=== PATIENT | male | born 1925 | race Caucasian/White ===

== ENCOUNTER 2016-09-10 14:06 | Inpatient (IN) | payer OTHER ==
[~2016-09-10] VITALS: Ht 167.6 cm; Wt 64.4 kg
[~2016-09-10 14:06] MED LIST: AMIODARONE HCL200 M1 PO; AMIODARONE200 MG PO; COLACE100 MG PO; COLACE50 MG PO; CORDARONE 200M200 MG PO; COUMADIN 2 MG TA2 MG PO; COUMADIN 5 MG TA5 MG PO; COUMADIN2 M1 PO; FINASTERIDE5 M1 PO; FUROSEMIDE20 M1 PO; FUROSEMIDE20 MG PO; LEVOTHYROXINE25 MCG PO; LISINOPRIL5 MG PO; LOPRESSOR 25MG25 MG PO; LOPRESSOR50 MG PO; PRAVASTATIN SOD20 M2 PO; Prinivil PO; SIMVASTATIN40 MG PO; SOTALOL80 MG PO; SPIRONOLACTONE25 M1 PO; SPIRONOLACTONE25 MG PO; WARFARIN4 MG PO; ZANTAC 150MG150 MG PO; ZOCOR80 MG PO
--- NOTE | 2016-09-10 14:26 | NUR ---
PT TO ED C/O B/L LEG SWELLING X 1 WEEK. STATES LASIX DOSE WAS INCREASED BY DR HERRING BUT THE SWELLING IS WORSE. PT DENIES PAIN, NO COMPLAINTS. H/O CHF.
--- NOTE | 2016-09-10 15:01 | ED CARDIAC/CP/PALPITATIONS ---
See Addendum History of Present Illness General Chief Complaint: Lower Extremity Problems Stated Complaint: DEEP LEG SWELLING Source: patient, family, old records Exam Limitations: no limitations Vital Signs & Intake/Output Vital Signs & Intake/Output Vital Signs Date Time Temp Pulse Resp B/P Pulse O2 O2 Flow FiO2 Ox Delivery Rate 09/10 1743 69 18 107/64 97 09/10 1600 16 16 96/59 97 Room Air 09/10 1425 97.9 71 20 90/52 93 Room Air Allergies Coded Allergies: sulfamethoxazole (From Bactrim) (RASH 09/11/15) trimethoprim (From Bactrim) (RASH 09/11/15) Triage Note: PT TO ED C/O B/L LEG SWELLING X 1 WEEK. STATES LASIX DOSE WAS INCREASED BY DR HERRING BUT THE SWELLING IS WORSE. PT DENIES PAIN, NO COMPLAINTS. H/O CHF. Triage Nurses Notes Reviewed? 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 His states that the patient's dose of Lasix was increased to 40 mg in the morning, and 20 mg at night which she has been on since the symptoms began without improvement. He denies any associated chest pain, fever chills redness warmth or rashes to his skin. He denies decreased urine output. He was last admitted in June 2016 for a CHF exacerbation. No cough, hemoptysis (ONUR POLLARD) Reconcile Medications Albuterol Sulfate 0.63 MG/3 ML VIAL.NEB 1 Vial INH/BILLIE BID PARALYZED RIGHT LUNG (Reported) Amiodarone HCl 200 MG TABLET 100 MG PO Q48 HEART HEALTH (Reported) Amiodarone HCl 200 MG TABLET 1 TAB PO EOD HEART HEALTH (Reported) Finasteride 5 MG TABLET 1 TAB PO DAILY PROSTATE Furosemide (Lasix) 40 MG TABLET 40 MG PO DAILY chf please follow up with cover making machine operator within a week to reassess Levothyroxine Sodium 25 MCG TABLET 1 TAB PO DAILY AC THYROID (Reported) Metoprolol Tartrate 25 MG TABLET 0.5 TAB PO BID HEART/BP (Reported) Pravastatin Sodium 20 MG TABLET 1 TAB PO DAILY CHOLESTEROL (Reported) Spironolactone 25 MG TABLET 0.5 TAB PO DAILY DIURETIC (Reported) Warfarin Sodium (Coumadin) 2 MG TABLET 1 TAB PO EOD BLOOD THINNER (Reported) Warfarin Sodium (Coumadin) 1 MG TABLET 1 TAB PO EOD BLOOD THINNER (Reported) (THOMAS DE JESUS) Past History Travel History Traveled to [place] past 21 day No Medical History Any Pertinent Medical History? 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 fib History of MRSA: No History of VRE: No History of CDIFF: No Pneumonia Vaccine: 03/08/16 Influenza Vaccine: 03/08/16 Surgical History Surgical History: MITRAL VALVE, 3 STENTS, DEFIBRILLATOR IN PLACE, pilonidal cyst AICD placement Psychosocial History Who do you live with Spouse What is your primary language Latvian Tobacco Use: Never used ETOH Use: denies use Illicit Drug Use: denies illicit drug use Family History Family History, If Any: FATHER FH: stroke MOTHER FH: heart disease Hx Contributory? No (ONUR POLLARD) Review of Systems Review of Systems Constitutional: Reports: see HPI. All Other Systems: Reviewed and Negative Comments Review of systems: See HPI, All other systems negative. Constitutional, no chills no fever, malaise HEENT: No visual changes no sore throat no congestion Cardiovascular: No chest pain , no palpitation Skin, no jaundice no rashes, no change in skin Respiratory: dyspnea no cough no sputum GI: No nausea no vomiting, no diarrhea, : No dysuria No hematuria, no frequency, Muscle skeletal: No joint pain, no joint swelling, no back pain, no neck pain, Neurologic: No numbness no headache Psych: No stress Heme/endocrine: No bruising no bleeding Immunology: No lymphadenopathy, (ONUR POLLARD) Physical Exam Physical Exam General Appearance: well developed/nourished, alert, awake Cardiovascular: regular rate/rhythm, murmur Comments: Well-developed well-nourished person in no acute distress HEENT: Normal EENT exam; PERRL, EOMI, HEAD is atraumatic. moist mucous membranes. Neck: Supple, normal range of motion without pain or tenderness Back: Nontender, no CVA tenderness. Full range of motion Cardiovascular: Regular rate and rhythms no murmurs rubs or gallops Respiratory: Chest nontender.There were no bony deformities, no asymmetry. No respiratory distress. Patient speaking in full complete sentences. Breath sounds clear to auscultation bilaterally: NO W/R/R Abdomen: Soft, nontender nondistended, no appreciable organomegaly. Normal bowel sounds. No rebound/guarding, No ascites. Extremity: 2+ B/L LE edema, full range of motion of extremities, normal and equal pulses bilaterally, 5 out of 5 strength noted to bilateral upper and lower extremities Neuro: Alert oriented x3, motor sensory normal, There were no obvious focal neurologic abnormalities. Skin: No appreciable rash on exposed skin, skin is warm and dry. Psych: Mood and affect is normal, memory and judgment is normal. Core Measures ACS in differential dx? Yes Severe Sepsis Present: No Septic Shock Present: No (ONUR POLLARD) Progress Differential Diagnosis: AMI, aortic dissection, atrial fibrillation, CHF/pulm edema, costochondritis, hyperkalemia, musculoskeletal pain, myocarditis, pericarditis, pneumonia, pneumothorax, PSVT, pulmonary embolism, PUD/GERD, DVT Plan of Care: Orders Procedure Date/time Status [facility]ER[facility]OL [facility] 09/13 UNK Complete LABS ORDERED, OLD RECORDS REVIEWED, CASE D/W DR MANZANO CALL PLACED TO DR HERRING 09/10/2016 4:17:12 PM case discussed with Dr. Herring who agrees with need for admission advised to hold IV lasix dose,manuel, have nephrology consult. Discussed the patient and his family all his lab results and they agree with plan (ONUR POLLARD) I was not involved in this patient's care. Thomas Mohan PA-C (THOMAS DE JESUS) Diagnostic Imaging: Viewed by Me: Radiology Read. Discussed w/RAD: Radiology Read. Initial ED EKG: VPACED AT 70, NO ACUTE ST SEG CHANGES NORMAL AXIS Prior EKG: unchanged (06/2016) (ONUR POLLARD) Departure Departure Disposition: STILL A PATIENT Condition: Stable Clinical Impression Primary Impression: CHF exacerbation Secondary Impressions: Acute on chronic renal insufficiency, Leg edema Referrals: PHYLLIS BOSS MD (PCP/Family) Departure Forms: Customer Survey General Discharge Information Admission Note Spoke With: NU ALDRIDGE MD Documentation of Exam: Documentation of any treatments & extenuating circumstances including Concerns Regarding Discharge (functional status, medication knowledge or non-compliance, living conditions, etc.) that warrant an admission rather than observation: Nephrology consult IV diuresis trend labs premature discharge would BE medically harmful cardiology consult (ONUR POLLARD) PA/[employer] Co-Sign Statement Statement: ED Attending supervision documentation- [x] I saw and evaluated the patient. I have also reviewed all the pertinent lab results and diagnostic results. I agree with the findings and the plan of care as documented in the PA's/[employer]'s documentation. [] I have reviewed the ED Record and agree with the PA's/[employer]'s documentation. [] Additions or exceptions (if any) to the PAs/SALV[employer]'s note and plan are summarized below: [] (THOMAS DE JESUS) Departure Prescriptions: Current Visit Scripts Furosemide (Lasix) 40 MG PO DAILY #7 TAB please follow up with cover making machine operator within a week to reassess PA/[employer] Co-Sign Statement Statement: ED Attending supervision documentation- [x] I saw and evaluated the patient. I have also reviewed all the pertinent lab results and diagnostic results. I agree with the findings and the plan of care as documented in the PA's/[employer]'s documentation. [] I have reviewed the ED Record and agree with the PA's/[employer]'s documentation. [] Additions or exceptions (if any) to the PAs/[employer]'s note and plan are summarized below: [] (JOSE JUAN ROBLERO,ADAM Dumont) Critical Care Note Critical Care Note Critical Care Time: non-applicable (ONUR POLLARD) (Cordarone) Laboratory Tests 09/10/16 1600: PT 42.9 *H, INR 4.14 *H 09/10/16 1516: Anion Gap 10, Estimated GFR 21 L, BUN/Creatinine Ratio 25.2 H, Glucose 111 H, Calcium 9.2, Total Bilirubin 0.8, AST 43, ALT 39, Alkaline Phosphatase 80, Troponin I 0.04, Bjp-[id number]-Rynnubvhqdr Pept 9330 H, Total Protein 6.7, Albumin 3.7, Globulin 3.0, Albumin/Globulin Ratio 1.2, CBC w Diff NO MAN DIFF REQ, RBC 3.33 L, MCV 91.7, MCH 30.9, RDW 16.3 H, MPV 9.2, Gran % 78.0 H, Lymphocytes % 11.0 L, Monocytes % 9.6 H, Eosinophils % 1.2, Basophils % 0.2, Absolute Granulocytes 5.5, Absolute Lymphocytes 0.8 L, Absolute Monocytes 0.7 H, Absolute Eosinophils 0.1, Absolute Basophils 0, PUBS MCHC 33.7 Microbiology 09/10 1702 URINE ROUT: Urine Culture - RECD LABS ORDERED, OLD RECORDS REVIEWED, CASE D/W DR MANZANO CALL PLACED TO DR HERRING 09/10/2016 4:17:12 PM case discussed with Dr. Herring who agrees with need for admission advised to hold IV lasix dose,manuel, have nephrology consult. Discussed the patient and his family all his lab results and they agree with plan (ONUR POLLARD) I was not involved in this patient's care. Thomas Mohan PA-C (THOMAS DE JESUS) Diagnostic Imaging: Viewed by Me: Radiology Read. Discussed w/RAD: Radiology Read. Initial ED EKG: VPACED AT 70, NO ACUTE ST SEG CHANGES NORMAL AXIS Prior EKG: unchanged (06/2016) (ONUR POLLARD) Departure Departure Disposition: STILL A PATIENT Condition: Stable Clinical Impression Primary Impression: CHF exacerbation Secondary Impressions: Acute on chronic renal insufficiency, Leg edema Referrals: GERA ROBLERO,PHYLLIS (PCP/Family) Departure Forms: Customer Survey General Discharge Information Admission Note Spoke With: NU ALDRIDGE MD Documentation of Exam: Documentation of any treatments & extenuating circumstances including Concerns Regarding Discharge (functional status, medication knowledge or non-compliance, living conditions, etc.) that warrant an admission rather than observation: Nephrology consult IV diuresis trend labs premature discharge would BE medically harmful cardiology consult (ONUR POLLARD) PA/[employer] Co-Sign Statement Statement: ED Attending supervision documentation- [x] I saw and evaluated the patient. I have also reviewed all the pertinent lab results and diagnostic results. I agree with the findings and the plan of care as documented in the PA's/[employer]'s documentation. [] I have reviewed the ED Record and agree with the PA's/[employer]'s documentation. [] Additions or exceptions (if any) to the PAs/S[employer]'s note and plan are summarized below: [] (THOMAS DE JESUS) Critical Care Note Critical Care Note Critical Care Time: non-applicable (ONUR POLLARD)
[2016-09-10] MEDS ORDERED: LASIX40 M1 PO (15:23)
[2016-09-10] MEDS ORDERED: FUROSEMIDE20 M1 PO (15:23)
[2016-09-10] MEDS ORDERED: METOPROLOL TART25 M1 PO (15:25)
[2016-09-10] MEDS ORDERED: SPIRONOLACTONE25 M1 PO (15:26)
[2016-09-10] MEDS ORDERED: COUMADIN1 M1 PO (15:27)
[2016-09-10] MEDS ORDERED: COUMADIN2 M1 PO (15:27)
[2016-09-10] MEDS ORDERED: ALBUTEROL0.63 MG/1 INH/SOL (15:28)
[2016-09-10 15:29] LABS: ABSOLUTE BASOPHIL COUNT 0 /CUMM (0.0-0.2); ABSOLUTE EOSINOPHIL COUNT 0.1 /CUMM (0.0-0.7); ABSOLUTE GRANULOCYTE CT 5.5 /CUMM (1.4-6.5); ABSOLUTE LYMPH COUNT 0.8 /CUMM (1.2-3.4); ABSOLUTE MONOCYTE COUNT 0.7 /CUMM (0.10-0.60); BASOPHIL % 0.2 % (0.0-2.0); EOSINOPHIL % 1.2 % (0-5); HEMATOCRIT 30.5 % (42-52); MEAN CORPUSCULAR HGB 30.9 PG (27.0-31.0); MEAN CORPUSCULAR HGB CONC 33.7 G/DL (33.0-37.0); MEAN CORPUSCULAR VOLUME 91.7 FL (80.0-94.0); MEAN PLATELET VOLUME 9.2 FL (7.4-10.4); PLATELET COUNT 147 /CUMM (130-400); RBC DISTRIBUTION WIDTH 16.3 % (11.5-14.5); RED BLOOD CELL CT 3.33 /CUMM (4.70-6.10)
--- NOTE | 2016-09-10 15:56 | RADIOLOGY REPORT ---
EXAMINATION: XR PORTABLE CHEST CLINICAL INFORMATION: Dyspnea. Weakness. Lower extremity swelling. COMPARISON: Chest x-ray 06/18/2016. TECHNIQUE: Portable AP view of the chest was obtained. FINDINGS: Single AP view of the chest demonstrates blunting of the right costophrenic angle, corresponding to a small to moderate right-sided pleural effusion. Right basilar opacification is nonspecific and could reflect atelectasis although superimposed infection cannot be excluded in the appropriate clinical setting. No left-sided pleural fluid is identified. Cardiomediastinal contours are stable and there is stable prominence of the cardiac silhouette, without overt pulmonary edema. Redemonstrated is a left chest wall AICD. Median sternotomy wires are in place. No pneumothoraces are identified. IMPRESSION: Persistent small to moderate right-sided pleural effusion with associated right basilar opacification. This could reflect atelectasis although superimposed infection is not excluded in the appropriate clinical setting. Stable prominence of the cardiac silhouette, without overt pulmonary edema.
--- NOTE | 2016-09-10 16:01 | NUR ---
NOTED PACED RHYTHM ON MONITOR, CAPTURING
--- NOTE | 2016-09-10 17:05 | History & Physical ---
JORI AIKEN 09/10/16 4735: General Information and HPI MD Statement: I have seen and personally examined REAGAN GUTIERREZ and documented this H&P. 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 Daughter and was at bedside. Stated that since the past one week he has been experiencing progressively worsening bilateral lower extremity swelling. His roundhouse firer/fireman Dr. Golden had increased his dose of Lasix a couple of risk weeks ago. States that he's gained about 2-3 pounds over the course of the week. At baseline he is short of breath shortness of breath has not worsened recently. Continues to sleep on one pillow. He does continue to sprinkle salt on his diet. Reports compliance with medication. Denies chest pain, palpitations, fever, upper respiratory symptoms. Allergies/Medications Allergies: Coded Allergies: sulfamethoxazole (From Bactrim) (RASH 09/11/15) trimethoprim (From Bactrim) (RASH 09/11/15) Home Med list Albuterol Sulfate 0.63 MG/3 ML VIAL.NEB 1 Vial INH/BILLIE BID PARALYZED RIGHT LUNG (Reported) Amiodarone HCl 200 MG TABLET 100 MG PO Q48 HEART HEALTH (Reported) Amiodarone HCl 200 MG TABLET 1 TAB PO EOD HEART HEALTH (Reported) Finasteride 5 MG TABLET 1 TAB PO DAILY PROSTATE Furosemide (Lasix) 40 MG TABLET 1 TAB PO QAM DIURETIC (Reported) Furosemide 20 MG TABLET 1 TAB PO DAILY DIURETIC (Reported) Levothyroxine Sodium 25 MCG TABLET 1 TAB PO DAILY AC THYROID (Reported) Metoprolol Tartrate 25 MG TABLET 0.5 TAB PO BID HEART/BP (Reported) Pravastatin Sodium 20 MG TABLET 1 TAB PO DAILY CHOLESTEROL (Reported) Spironolactone 25 MG TABLET 0.5 TAB PO DAILY DIURETIC (Reported) Warfarin Sodium (Coumadin) 2 MG TABLET 1 TAB PO EOD BLOOD THINNER (Reported) Warfarin Sodium (Coumadin) 1 MG TABLET 1 TAB PO EOD BLOOD THINNER (Reported) Compliance With Home Meds: GOOD Past History Travel History Traveled to [place] past 21 day No Medical History Neurological: NONE EENT: hearing loss Cardiovascular: CAD, cardiomyopathy, hypertension, CHF, IRREG 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 ON LASIX Gastrointestinal: NONE Hepatic: NONE Renal: chronic azotemia for which she has never seen a dental assisting instructor over the years as well as episodes of acute kidney injury when he had hypotension. Musculoskeletal: NONE Psychiatric: NONE Endocrine: NONE Blood Disorders: NONE Cancer(s): NONE MERCURY CRACKING TESTER/Reproductive: NONE Other Medical Hx: Hypertension, high cholesterol, mitral valve replacement, CAD, A. fib History of MRSA: No History of VRE: No History of CDIFF: No Pneumonia Vaccine: 03/08/16 Influenza Vaccine: 03/08/16 Surgical History Surgical History: MITRAL VALVE, 3 STENTS, DEFIBRILLATOR IN PLACE, pilonidal cyst AICD placement Past Family/Social History Family History Relations & Conditions if any FATHER FH: stroke MOTHER FH: heart disease Psychosocial History Where do you live? Home Who Do You Live With? spouse Primary Language: Mongolian ETOH Use: denies use Illicit Drug Use: denies illicit drug use Functional Ability ADLs Independent: dressing, eating, toileting, bathing. Ambulation: walker Review of Systems Review of Systems Constitutional: Denies: chills, diaphoresis, fever, malaise, weakness, unexplained weight loss. Cardiovascular: Denies: chest pain, edema, orthopena, palpitations, peripheral edema, syncope. Respiratory: Reports: short of breath. Denies: cough, hemoptysis, orthopnea, sputum production, stridor, wheezing. GI: Denies: abdominal pain, bloating, constipation, diarrhea, distention, bowel incontinence, melena, nausea, bloody stool, changes in stool, vomiting, steatorrhea. Genitourinary: Denies: discharge, dysuria, frequency, hematuria, hesitation, nocturia, pain, urgency. Exam & Diagnostic Data Last 24 Hrs of Vital Signs/I&O Vital Signs Date Time Temp Pulse Resp B/P Pulse O2 O2 Flow FiO2 Ox Delivery Rate 09/10 1743 69 18 107/64 97 09/10 1600 16 16 96/59 97 Room Air 09/10 1425 97.9 71 20 90/52 93 Room Air Intake & Output 09/10 1600 09/10 0800 03/06 0000 Intake Total Output Total Balance Patient 145 lb Weight Physical Exam General Appearance Alert, Oriented X3, Cooperative, No Acute Distress HEENT Atraumatic, Mucous Membr. moist/pink Neck Supple, No JVD, +2 Carotid Pulse wo Bruit Lymphatic Cervical nl Cardiovascular Normal S1, Normal S2, click heard in mitral area Lungs Normal Air Movement, b/l coarse crackles Abdomen Soft, distended Extremities b/l pitting edema to below knees Last 24 Hrs of Labs/Jamar: Laboratory Tests 09/10/16 2130: Troponin I Pending 09/10/16 1600: PT 42.9 *H, INR 4.14 *H 09/10/16 1516: Anion Gap 10, Estimated GFR 21 L, BUN/Creatinine Ratio 25.2 H, Glucose 111 H, Calcium 9.2, Total Bilirubin 0.8, AST 43, ALT 39, Alkaline Phosphatase 80, Troponin I 0.04, [id number] Pept 9330 H, Total Protein 6.7, Albumin 3.7, Globulin 3.0, Albumin/Globulin Ratio 1.2, TSH Pending, Free T4 2.06 H, CBC w Diff NO MAN DIFF REQ, RBC 3.33 L, MCV 91.7, MCH 30.9, RDW 16.3 H, MPV 9.2, Gran % 78.0 H, Lymphocytes % 11.0 L, Monocytes % 9.6 H, Eosinophils % 1.2, Basophils % 0.2, Absolute Granulocytes 5.5, Absolute Lymphocytes 0.8 L, Absolute Monocytes 0.7 H, Absolute Eosinophils 0.1, Absolute Basophils 0, PUBS MCHC 33.7 Microbiology 09/10 1702 URINE ROUT: Urine Culture - RECD Diagnostic Data EKG Results Ventricular paced, heart rate 70 QTc 575 CXR Results FINDINGS: Single AP view of the chest demonstrates blunting of the right costophrenic angle, corresponding to a small to moderate right-sided pleural effusion. Right basilar opacification is nonspecific and could reflect atelectasis although superimposed infection cannot be excluded in the appropriate clinical setting. No left-sided pleural fluid is identified. Cardiomediastinal contours are stable and there is stable prominence of the cardiac silhouette, without overt pulmonary edema. Redemonstrated is a left chest wall AICD. Median sternotomy wires are in place. No pneumothoraces are identified. IMPRESSION: Persistent small to moderate right-sided pleural effusion with associated right basilar opacification. This could reflect atelectasis although superimposed infection is not excluded in the appropriate clinical setting. Stable prominence of the cardiac silhouette, without overt pulmonary edema. 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 Will admit to tele floor for continuous cardiac monitoring. Prob list: acute on Chronic HFrEF CAD [facility] mitral valve CKD BPH plan: Vitals per protocol, daily weights, strict I/Os f/up TSH/t4 Echo done in Jun 22 showed LVEF of 20-25% cardio consult in am hold coumadin secondary to supratherapeutic INR CKD thought to be secondary to hypertensive nephrosclerosis vs cardiorenal syndrome, will continue to monitor closely continue home medications amiodarone 100 mg and 200 mg on alternating days, metoprolol 25 mg PO BID, pravastatin 20 mg PO QD, spirinolactone 12.5 mg PO QD, synthroid 0.025mg and Finasteride 5 mg PO QD DVTppx: supratherapeutic INR heart healthy diet full code As Ranked By This Provider Problem List: 1. Supratherapeutic INR 2. Atrial fibrillation 3. CHF exacerbation 4. H/O mitral valve replacement with mechanical valve 5. S/P AICD Core Measures/Miscellaneous Acute Coronary Syndrome ACS Diagnosis: No Cerebrovascular Accident CVA/TIA Diagnosis: No Congestive Heart Failure CHF Diagnosis: Yes Date of most recent Echo: 06/08/16 Last Known EF %: 20 GRAHAM/ARB for EF <40%: No No GRAHAM/ARB d/t: Medical Contraindication Venous Thromboembolism VTE Risk Factors: Age > 40 [facility] d/t: No contraindications No VTE Pharm Prophylaxis d/t: Medical contraindication VTE Diagnosis: No VTE Type: NONE VTE Confirmed by (Test): NONE Severe Sepsis Severe Sepsis Present: No Septic Shock Septic Shock Present: No Miscellaneous Documentation Attending Case Discussed With: NU ALDRIDGE MD Primary Care Physician: GERA ROBLERO,[facility] Patient sees these Specialists Dr. 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 Recent increase in Lasix dose at home with no improvement. Patient hemodynamically stable, no JVD, no crackles, 3+ b/l LE edema. 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 His Lasix dose was increased recently(3 weeks ago) by his roundhouse firer/fireman, Dr. Golden. The patient reports gaining approx 3 pounds for the past few weeks. He brittni any Dizziness, lightheadedness, Orthopnea, CP, palpitation, or other complaints. He is compliant with Low Na diet, and his medications. VS: T: 97.9, ME 71, BP 90/52, RR 20, O2 sat 92% RA Ph/Ex: AAOx3, NAD, wearing hearing aid b/l , HEENT: Moist mm, head NCAT, PERRLA, EOMI Neck: Supple, no JVD, no carotid bruits, no LAD. CV: RRR, no murmur. Lungs: CTABL, Abdomen: NL BS, Sotf, NT, Distended. Ext: LE 3+ edema b/l. Neurology exam non-focal. Reflexes/pulse wnl and symm. Pertinent Lab data: Hb 10.3, Hct 30.5, BUN 73, Cr 2.9, GFR 21, G 111, ProBNP 9330( [id number] Jun 22). INR 4.14. EKG: ventricular paced, 70, QTC 575. CXR: Persistent right-sided pleural effusion with associated right basilar opacification.Stable prominence of the cardiac silhouette, without overt pulmonary edema. Problem list/Plan: #Worsening of LE edema and exertional dyspnea: Likely 2/2 acute on chronic HFrEF. * take off man * Echo done during last admission in Jun 2016 (ejection fraction 20%) : No need for a repeat echo at this point. * r/o ACS w/serial trop/ekg * Check TFT * Strict Is&Os w/daily Wt. * IV furosemid 40 mg x1 * monitor cr/electrolytes. * Cardiology consult w/Dr. Golden * c/w home meds including amiodarone 100 mg and 200 mg on alternating days, metoprolol 25 mg PO BID, pravastatin 20 mg PO QD and spirinolactone 12.5 mg PO QD; monitor BP and ME closely. #Supratherapeutic INR: * Patient is s/p metalloprosthetic mitral valve replacement and takes warfarin 2 mg PO QD and warfarin 1 mg PO QD on alternating days. * Admission INR 4.14. * No clinical sign of active bleeding * Will hold warfarin * Will check INR tomorrow; warfarin dose to be adjusted accordingly. #JESSE on CKD: * Cr 2.9 on admission; cardiorenal vs worsening of CKD * IV Furosemide 40 mg X1 * Check UA * Monitor Cr level closely * Consider Nephrology consult #BPH: * Chronic/stable * Renal US on last admission was unremarkable. * Chronic urinary symptoms including urinary retention * c/w Finasteride 5 mg PO QD #Right-sided pleural effusion: * Present since last admission in Jun 2016 along with lung collapse. * Patient was not a good candidate for bronchoscopy given his markedly abnormal stress test and multiple co-morbidities;also,Thoracentesis could not be performed as there was not enough fluid for thoracentesis on chest US. * Consider Pulm consult # DVT PPX: Pt on warfarin; now w/supratherapeutic INR # Full code
[2016-09-10 17:07] LABS: PT 42.9 SEC (9.4-12.5)
--- NOTE | 2016-09-10 17:09 | NUR ---
CRITICAL TEST RESULTS [id number] REAGAN GUTIERREZ 89 M TESTS AND RESULTS: PT 42.9 INR 4.14 Results received and read back by: KAVEH DYER Results received date and time: 09/10/16 1710 The following provider was notified of the results, and read the results back: RUTH MOHR Notified date and time: 09/10/16 at 1712
--- NOTE | 2016-09-10 18:47 | NUR ---
Emergency Dept UC Admit Note: To be admitted to [facility] by [facility] with CHF EXACERBATION as the diagnosis, to [id number] location. Nursing Display Mechanic and admitting notified 09/10/16 at 1809
--- NOTE | 2016-09-10 19:17 | Admission Certification ---
Admission Certification Certification Statement - As attending physician, I certify that at the time of - admission, based on clinical presentation, severity of - symptoms, need for further diagnostic testing and - therapeutic interventions, and risk of adverse outcomes - without in-hospital treatment, in my clinical assessment, - this patient requires an acute hospital stay for a minimum - of two nights or longer. I have also considered psychsocial - factors such as support system, advanced age, financial - issues, cognitive issues, and failed out-patient treatments, - past re-admission history, safety of patient, and lack of - compliance as applicable. Specific rationale supporting this admission is: Acute on chronic sytolic CHF failing outpatient therapy
--- NOTE | 2016-09-10 19:22 | NUR ---
REPORT CALLED TO [facility]
--- NOTE | 2016-09-10 19:35 | NUR ---
PACE RHYTHM, A&OX3, SKIN WARM AND DRY, RESPIRATIONS EVEN AND NON LABORED
--- NOTE | 2016-09-10 20:30 | NUR ---
REPORT RECIEVED FROM BLANCO RN, ED. PT ARRIVED TO FLOOR VIA DISTRIBUTION. DENIES ANY PAIN. AOX3. PACED ON MONITOR. NO S/S DISTRESS AT THIS TIME. ORIENTED TO ROOM AND CALL BUTTON. WILL CONTINUE TO MONITOR.
[2016-09-10 21:49] VITALS: BP 100/60; BP 138/78
[2016-09-11 01:11] VITALS: BP 110/60
[2016-09-11 03:56] LABS: ABSOLUTE BASOPHIL COUNT 0 /CUMM (0.0-0.2); ABSOLUTE EOSINOPHIL COUNT 0.1 /CUMM (0.0-0.7); ABSOLUTE GRANULOCYTE CT 5.3 /CUMM (1.4-6.5); ABSOLUTE LYMPH COUNT 0.8 /CUMM (1.2-3.4); ABSOLUTE MONOCYTE COUNT 0.7 /CUMM (0.10-0.60); BASOPHIL % 0.4 % (0.0-2.0); GRANULOCYTE % 76.1 % (42.2-75.2); HEMATOCRIT 30.3 % (42-52); MEAN CORPUSCULAR HGB 30.4 PG (27.0-31.0); MEAN CORPUSCULAR VOLUME 92.2 FL (80.0-94.0); MEAN PLATELET VOLUME 9.3 FL (7.4-10.4); PLATELET COUNT 127 /CUMM (130-400); RBC DISTRIBUTION WIDTH 15.9 % (11.5-14.5); RED BLOOD CELL CT 3.29 /CUMM (4.70-6.10)
[2016-09-11 03:58] LABS: PT 36.6 SEC (9.4-12.5)
[2016-09-11 07:48] VITALS: BP 100/62
--- NOTE | 2016-09-11 11:36 | PN- Att Addend ---
Attending Addendum Attending Brief Note Patient seen and examined. Discussed with Dr. Lobo and team. This is an 89-year-old male known to me from previous admissions with a history of chronic systolic heart failure with an EF of 25%, pacemaker/defibrillator, coronary artery disease and a metallic heart valve on Coumadin with CKD. He is here with a presumed acute on chronic systolic heart failure despite aggressive outpatient oral therapy. His says that Dr. Golden recently increased his dose of Lasix but despite that he is getting progressively more swollen and that's what made her bring him in. Right now we have him on Lasix 40 IV daily keeping a close watch on his CK D. His INR is 3.53 so he doesn't need any Coumadin today but we need to keep the INR on the high side given his metallic valve. Dr. Lobo will help us with dose of the diuretic and will continue the amiodarone and follow-up closely. His UA and urine culture are both positive. He is asymptomatic for this is likely asymptomatic bacteriuria but I am worried that now he has a Rawls catheter because of the IV diuretics so we'll curbside ID just to make sure that we don't need to treat this.
--- NOTE | 2016-09-11 12:59 | PN- Housestaff ---
Subjective Follow-up For: HFrEF [facility] valve CAD Subjective: Seen and examined patient, offers no complaints. States he had difficulty sleeping due to change in environment. Denies shortness of breath, chest pain. Review of Systems Constitutional: Denies: chills, diaphoresis, fever, malaise, weakness, unexplained weight loss. Cardiovascular: Denies: chest pain, edema, orthopena, palpitations, peripheral edema, syncope. Respiratory: Denies: cough, hemoptysis, orthopnea, short of breath, sputum production, stridor, wheezing. Objective Last 24 Hrs of Vital Signs/I&O Vital Signs Date Time Temp Pulse Resp B/P Pulse O2 O2 Flow FiO2 Ox Delivery Rate 09/11 1850 94 Room Air / 1613 97.8 68 20 94/50 95 Room Air / 1002 72 100/62 / 0902 97 Room Air Room Air / 0800 Room Air / 0748 97.9 72 20 100/62 94 Room Air / 0622 70 118/68 03/07 0111 97.6 70 20 110/60 98 Room Air 03/07 0000 96 /06 2200 70 106/58 03/06 2149 97.6 71 20 100/60 96 Room Air 03/06 2106 Room Air Intake & Output 09/11 1600 /07 0800 / 0000 Intake Total 914 240 240 Output Total 950 1200 400 Balance -36 -960 -160 Intake, IV 14 Intake, Oral 900 240 240 Number 1 Bowel Movements Output, Urine 950 1200 400 Patient 144 lb Weight Physical Exam General Appearance: Alert, Oriented X3, Cooperative, No Acute Distress Cardiovascular: Normal S1, Normal S2, added clicks heard Lungs: b/l basal crackles Abdomen: Normal Bowel Sounds, Soft Extremities: +2 pedal edema Current Medications: Current Medications Sig/Yordy Start time Last Medication Dose Route Stop Time Status Admin Acetaminophen 325 MG Q6 PRN 09/11 0130 AC PO Albuterol Sulfate 3 ML BID 09/10 2200 AC 09/11 INH 1850 Amiodarone HCl 100 MG Q48 /08 1000 DC PO Amiodarone HCl 100 MG Q48 /08 1000 AC PO Amiodarone HCl 200 MG Q48H 09/11 0600 AC 09/11 PO 0622 Finasteride 5 MG DAILY 09/11 1000 AC 09/11 PO 1002 Furosemide 40 MG 7:30 AM, & 4:30 PM 09/11 1915 AC IV Furosemide 40 MG .STK-MED ONE 09/11 1816 DC IV 09/11 1817 Furosemide 40 MG DAILY 09/11 1000 DC 09/11 IV 1002 Furosemide 20 MG ONCE ONE 09/10 2300 DC 09/11 IV 09/10 2301 0130 Levothyroxine Sodium 0.025 MG DAILY AC 09/11 0700 AC 09/11 PO 0621 Metoprolol Tartrate 12.5 MG BID 09/10 2200 AC 09/11 PO 1002 Patient Medication 1 ED .STK-MED ONE 09/11 1355 DC Teaching ED 09/11 1356 Pravastatin Sodium 20 MG 1700 09/11 1700 AC 09/11 PO 1802 Spironolactone 12.5 MG DAILY 09/11 1000 AC 09/11 PO 1002 Last 24 Hrs of Lab/Jamar Results Last 24 Hrs of Labs/Mics: Laboratory Tests 09/11/16 0630: Urine Color YEL, Urine Clarity HAZY H, Urine pH 6.0, Ur Specific [place] 1.010, Urine Protein TRACE H, Urine Ketones NEG, Urine Nitrite NEG, Urine Bilirubin NEG, Urine Urobilinogen 0.2, Ur Leukocyte Esterase LARGE H, Ur Microscopic SEDIMENT EXAMINED, Urine RBC 1-3, Urine WBC 15-25 H, Urine Bacteria MANY H, Urine Hemoglobin LARGE H, Urine Glucose NEG 09/11/16 0315: Troponin I 0.04 09/11/16 0315: Anion Gap 9, Estimated GFR 22 L, BUN/Creatinine Ratio 25.9 H, PT 36.6 H, INR 3.53 H, CBC w Diff NO MAN DIFF REQ, RBC 3.29 L, MCV 92.2, MCH 30.4, RDW 15.9 H, MPV 9.3, Gran % 76.1 H, Lymphocytes % 12.0 L, Monocytes % 10.5 H, Eosinophils % 1.0, Basophils % 0.4, Absolute Granulocytes 5.3, Absolute Lymphocytes 0.8 L, Absolute Monocytes 0.7 H, Absolute Eosinophils 0.1, Absolute Basophils 0, PUBS MCHC 33.0 09/10/16 2130: Troponin I 0.05 Assessment/Plan Assessment: 89-year-old gentleman of HFrEF s/p pacemaker defibrillator, CAD s/p CABG, 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 acute on Chronic HFrEF CAD [facility] mitral valve CKD BPH plan: daily weights, strict I/Os TSH/t4 WNL Echo done in Jun 22 showed LVEF of 20-25% cardio consulted apprecite recomendation hold coumadin today secondary to supratherapeutic INR creatinine improved to 2.7 today continue home medications amiodarone 100 mg and 200 mg on alternating days, metoprolol 25 mg PO BID, pravastatin 20 mg PO QD, spirinolactone 12.5 mg PO QD, synthroid 0.025mg and Finasteride 5 mg PO QD DVTppx: supratherapeutic INR heart healthy diet full code Problem List: 1. Supratherapeutic INR 2. HFrEF (heart failure with reduced ejection fraction) 3. BPH (benign prostatic hypertrophy) with urinary retention Pain Ratin Pain Location: na Pain Goal: Pain 4 or less Pain Plan: current regimen Tomorrow's Labs & Rationales: bep/mag/INr
--- NOTE | 2016-09-11 13:28 | Event Note ---
Event Note Event Note: UA was hazy in clarity with large leukocyte esterase, 15-25 WBC, and UC positive for gram negative rods. Patient seems to have asymptomatic bacteuria Although the patient has a Rawls catheter, patient does not need treatment at this moment. The literature only supports treatment of asymptomatic bacteuria when urinary tract manipulation is done such as during cystoscopy. ID is in agreement with the said plan.
--- NOTE | 2016-09-11 16:11 | Cons- Cardiology ---
General Information and HPI Consulting Request Date of Consult: 09/11/16 Requested By: HONG ROBLERO,DEMETRIUS Christina Reason for Consult: Heart failure History of Present Illness: The patient is an 89-year-old male with history of CAD, status post CABG, metallic mitral prosthetic valve, heart failure with reduced ejection fraction, implanted defibrillator who is followed in the office by Dr. Golden. He presents with complaint of progressive lower extremity edema which has been worsening over the past few weeks. His Lasix dose was recently increased to 40 milligrams every morning with 20 milligrams every afternoon, however he has continued to gain weight. he has had no chest pain. He has mild to moderate shortness of breath at baseline which has not increased recently. He does not have any complaint of orthopnea. He has been compliant with medications. No palpitations. No lightheadedness or dizziness. No nausea or vomiting. No diaphoresis. He is noted to have a positive urinalysis and urine culture, however he does not have as symptoms of urinary tract infection. Allergies/Medications Allergies: Coded Allergies: sulfamethoxazole (From Bactrim) (RASH 09/11/15) trimethoprim (From Bactrim) (RASH 09/11/15) Home Med List: Albuterol Sulfate 0.63 MG/3 ML VIAL.NEB 1 Vial INH/BILLIE BID PARALYZED RIGHT LUNG (Reported) Amiodarone HCl 200 MG TABLET 100 MG PO Q48 HEART HEALTH (Reported) Amiodarone HCl 200 MG TABLET 1 TAB PO EOD HEART HEALTH (Reported) Finasteride 5 MG TABLET 1 TAB PO DAILY PROSTATE Furosemide (Lasix) 40 MG TABLET 1 TAB PO QAM DIURETIC (Reported) Furosemide 20 MG TABLET 1 TAB PO DAILY DIURETIC (Reported) Levothyroxine Sodium 25 MCG TABLET 1 TAB PO DAILY AC THYROID (Reported) Metoprolol Tartrate 25 MG TABLET 0.5 TAB PO BID HEART/BP (Reported) Pravastatin Sodium 20 MG TABLET 1 TAB PO DAILY CHOLESTEROL (Reported) Spironolactone 25 MG TABLET 0.5 TAB PO DAILY DIURETIC (Reported) Warfarin Sodium (Coumadin) 2 MG TABLET 1 TAB PO EOD BLOOD THINNER (Reported) Warfarin Sodium (Coumadin) 1 MG TABLET 1 TAB PO EOD BLOOD THINNER (Reported) Current Medications: Current Medications Sig/Yordy Start time Last Medication Dose Route Stop Time Status Admin Acetaminophen 325 MG Q6 PRN 09/11 0130 AC PO Albuterol Sulfate 3 ML BID 09/10 2200 AC 09/11 INH 0900 Amiodarone HCl 100 MG Q48 09/12 1000 DC PO Amiodarone HCl 100 MG Q48 09/12 1000 AC PO Amiodarone HCl 200 MG Q48H 09/11 0600 AC 09/11 PO 0622 Finasteride 5 MG DAILY 09/11 1000 AC 09/11 PO 1002 Furosemide 40 MG DAILY 09/11 1000 AC 09/11 IV 1002 Furosemide 20 MG ONCE ONE 09/10 2300 DC 09/11 IV 09/10 2301 0130 Furosemide 0 .STK-MED ONE 09/10 1926 DC IV Furosemide 20 MG ONCE ONE 09/10 1915 DC 09/10 IV 09/10 1916 1930 Levothyroxine Sodium 0.025 MG DAILY AC 09/11 0700 AC 09/11 PO 0621 Metoprolol Tartrate 12.5 MG BID 09/10 2200 AC 09/11 PO 1002 Patient Medication 1 ED .STK-MED ONE 09/11 1355 DC Teaching ED 09/11 1356 Pravastatin Sodium 20 MG 1700 09/11 1700 AC PO Spironolactone 12.5 MG DAILY 09/11 1000 AC 09/11 PO 1002 Review of Systems Review of Systems: No rash. No tremor. No melena. No palpitations. All other systems are reviewed and are noted to be negative. Past History Travel History Traveled to [place] past 21 day No Medical History Blood Transfusion Hx: Yes Type of Reaction: Swelling Neurological: NONE EENT: hearing loss Cardiovascular: CAD, cardiomyopathy, hypertension, CHF, IRREG 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 ON LASIX Gastrointestinal: NONE Hepatic: NONE Renal: chronic azotemia for which she has never seen a funeral assistant over the years as well as episodes of acute kidney injury when he had hypotension. Musculoskeletal: NONE Psychiatric: NONE Endocrine: NONE Blood Disorders: NONE Cancer(s): NONE MANAGER PERFORMANCE/Reproductive: NONE Other Medical Hx: Hypertension, high cholesterol, mitral valve replacement, CAD, A. fib Surgical History Surgical History: MITRAL VALVE, 3 STENTS, DEFIBRILLATOR IN PLACE, pilonidal cyst AICD placement Family History Relations & Conditions If Any: FATHER FH: stroke MOTHER FH: heart disease Psychosocial History Where Do You Live? Home Who Do You Live With? spouse Primary Language: Wolof Smoking Status: Former Smoker ETOH Use: denies use Illicit Drug Use: denies illicit drug use Functional Ability ADLs Independent: dressing, eating, toileting, bathing. Ambulation: walker ECHO Results (as available) Report: CONCLUSIONS 1.this was a technically difficult study due to the patient's body habitus. 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 Mild valvular stenosis is present with a peak gradient of 20 mmHg, a mean gradient of 9 mmHg, and an estimated valve area of 1.8 cm . mild dilatation of the proximal ascending aorta is present 3. A metallic prosthetic mitral valve is present which appears to be functioning normally. Moderate to severe left atrial enlargement is present. 4. No significant pericardial fluid was detected on the study. 5. Left ventricular chamber is mildly enlarged. There is global hypokinesia present which is worse in the inferoposterior, inferolateral, and inferoapical segments. Ejection fraction is approximately 30%. 6. Mild enlargement of the right heart chambers is present. Moderate tricuspid insufficiency is present with mild pulmonic insufficiency and an estimated right ventricular systolic pressure of 50 mmHg. 7. Pacemaker wires are present in the right heart chambers. Exam & Diagnostic Data Vital Signs and I&O Vital Signs Date Time Temp Pulse Resp B/P Pulse O2 O2 Flow FiO2 Ox Delivery Rate 09/11 1613 97.8 68 20 94/50 95 Room Air / 1002 72 100/62 03/ 0902 97 Room Air Room Air / 0800 Room Air / 0748 97.9 72 20 100/62 94 Room Air 03/07 0622 70 118/68 03/07 0111 97.6 70 20 110/60 98 Room Air 03/07 0000 96 03/06 2200 70 106/58 03/06 2149 97.6 71 20 100/60 96 Room Air 03/06 2106 Room Air 03/ 1743 69 18 107/64 97 Intake & Output 09/11 1600 /07 0800 03/07 0000 /06 1600 / 0800 03/ 0000 Intake Total 914 240 240 360 Output Total 950 0159 428 1290 Balance -36 -960 -160 -990 Intake, IV 14 Intake, Oral 900 240 240 360 Number 1 Bowel Movements Output, Urine 950 5295 299 5570 Patient 144 lb 145 lb Weight Physical Exam: Gen: The patient is in no acute distress HEENT: Normal nose, ears, and oropharynx. Pupils equal bilaterally. Conjunctiva normal. Neck: Supple with no JVD, no masses, and no thyromegaly Lungs: Rales in the bases bilaterally with normal respiratory effort Heart: RRR, metallic mitral valve sounds, 1/6 systolic murmur. 2+peripheral edema, 1+ pulses in the lower extremities bilaterally Abdomen: Soft, nontender, no masses. No hepatomegaly. No splenomegaly Extremities: No clubbing or cyanosis. Normal muscle strength in the upper and lower extremities. Skin: Normal skin turgor with no skin ulcers or lesions noted. Neuro: Cranial nerves intact. Sensation intact Psych: Alert and oriented 3 with appropriate affect Labs/Jamar Results: Laboratory Tests 09/11 09/11 0630 0315 Chemistry Troponin I (<0.11 ng/ml) 0.04 Urines Urine Color (YEL,AMB,STR) YEL Urine Clarity (CLEAR) HAZY H Urine pH (5.0 - 8.0) 6.0 Ur Specific [place] (1.001 - 1.035) 1.010 Urine Protein (NEG,<30 MG/DL) TRACE H Urine Ketones (NEG) NEG Urine Nitrite (NEG) NEG Urine Bilirubin (NEG) NEG Urine Urobilinogen (0.1 - 1.0 EU/dl) 0.2 Ur Leukocyte Esterase (NEG) LARGE H Ur Microscopic SEDIMENT EXAMINED Urine RBC (0 - 5 /HPF) 1-3 Urine WBC (0 - 2 /HPF) 15-25 H Urine Bacteria (NEG/NONE) MANY H Urine Hemoglobin (NEG) LARGE H Urine Glucose (N MG/DL) NEG 09/11 09/10 09/10 0315 2130 1600 Chemistry Sodium (137 - 145 mmol/L) 138 Potassium (3.5 - 5.1 mmol/L) 3.8 Chloride (98 - 107 mmol/L) 96 L Carbon Dioxide (22 - 30 mmol/L) 33 H Anion Gap (5 - 16) 9 BUN (9 - 20 mg/dL) 70 H Creatinine (0.7 - 1.2 mg/dL) 2.7 H Estimated GFR (>60 ml/min) 22 L BUN/Creatinine Ratio (7 - 25 %) 25.9 H Troponin I (<0.11 ng/ml) 0.05 Coagulation PT (9.4 - 12.5 SEC) 36.6 H 42.9 *H INR (0.90 - 1.17) 3.53 H 4.14 *H Hematology CBC w Diff NO MAN DIFF REQ WBC (4.8 - 10.8 /CUMM) 7.0 RBC (4.70 - 6.10 /CUMM) 3.29 L Hgb (14.0 - 18.0 G/DL) 10.0 L Hct (42 - 52 %) 30.3 L MCV (80.0 - 94.0 FL) 92.2 MCH (27.0 - 31.0 PG) 30.4 RDW (11.5 - 14.5 %) 15.9 H Plt Count (130 - 400 /CUMM) 127 L MPV (7.4 - 10.4 FL) 9.3 Gran % (42.2 - 75.2 %) 76.1 H Lymphocytes % (20.5 - 51.1 %) 12.0 L Monocytes % (1.7 - 9.3 %) 10.5 H Eosinophils % (0 - 5 %) 1.0 Basophils % (0.0 - 2.0 %) 0.4 Absolute Granulocytes (1.4 - 6.5 /CUMM) 5.3 Absolute Lymphocytes (1.2 - 3.4 /CUMM) 0.8 L Absolute Monocytes (0.10 - 0.60 /CUMM) 0.7 H Absolute Eosinophils (0.0 - 0.7 /CUMM) 0.1 Absolute Basophils (0.0 - 0.2 /CUMM) 0 PUBS MCHC (33.0 - 37.0 G/DL) 33.0 03/06 1516 Chemistry Sodium (137 - 145 mmol/L) 138 Potassium (3.5 - 5.1 mmol/L) 3.9 Chloride (98 - 107 mmol/L) 96 L Carbon Dioxide (22 - 30 mmol/L) 32 H Anion Gap (5 - 16) 10 BUN (9 - 20 mg/dL) 73 H Creatinine (0.7 - 1.2 mg/dL) 2.9 H Estimated GFR (>60 ml/min) 21 L BUN/Creatinine Ratio (7 - 25 %) 25.2 H Glucose (65 - 99 mg/dL) 111 H Calcium (8.4 - 10.2 mg/dL) 9.2 Total Bilirubin (0.2 - 1.3 mg/dL) 0.8 AST (17 - 59 U/L) 43 ALT (21 - 72 U/L) 39 Alkaline Phosphatase (< 127 U/L) 80 Troponin I (<0.11 ng/ml) 0.04 [id number] Pept (<125 pg/mL) 9330 H Total Protein (6.3 - 8.2 g/dL) 6.7 Albumin (3.5 - 5.0 g/dL) 3.7 Globulin (1.9 - 4.2 gm/dL) 3.0 Albumin/Globulin Ratio (1.1 - 2.2 %) 1.2 TSH (0.270 - 4.200 uIU/mL) 3.420 Free T4 (0.85 - 1.93 ng/dL) 2.06 H Hematology CBC w Diff NO MAN DIFF REQ WBC (4.8 - 10.8 /CUMM) 7.0 RBC (4.70 - 6.10 /CUMM) 3.33 L Hgb (14.0 - 18.0 G/DL) 10.3 L Hct (42 - 52 %) 30.5 L MCV (80.0 - 94.0 FL) 91.7 MCH (27.0 - 31.0 PG) 30.9 RDW (11.5 - 14.5 %) 16.3 H Plt Count (130 - 400 /CUMM) 147 MPV (7.4 - 10.4 FL) 9.2 Gran % (42.2 - 75.2 %) 78.0 H Lymphocytes % (20.5 - 51.1 %) 11.0 L Monocytes % (1.7 - 9.3 %) 9.6 H Eosinophils % (0 - 5 %) 1.2 Basophils % (0.0 - 2.0 %) 0.2 Absolute Granulocytes (1.4 - 6.5 /CUMM) 5.5 Absolute Lymphocytes (1.2 - 3.4 /CUMM) 0.8 L Absolute Monocytes (0.10 - 0.60 /CUMM) 0.7 H Absolute Eosinophils (0.0 - 0.7 /CUMM) 0.1 Absolute Basophils (0.0 - 0.2 /CUMM) 0 PUBS MCHC (33.0 - 37.0 G/DL) 33.7 Diagnostic Data EKG Results EKG tracing is independently reviewed, and reveals ventricular paced rhythm at a rate of 70 CXR Results Persistent small to moderate right-sided pleural effusion with associated right basilar opacification. This could reflect atelectasis although superimposed infection is not excluded in the appropriate clinical setting. Stable prominence of the cardiac silhouette, without overt pulmonary edema. Other Results echocardiogram June 09, 2016: 1. Fibrocalcific degeneration is present in the aortic valve with moderate to severe valvular stenosis (PG 20 mmHg; MG 8 mmHg; DAMION 1.0 cm2). 2. A normally functioning metallo prosthetic mitral valve is present (size and type unknown) with severe left atrial enlargement. 3. THere is no significant pericardial fluid present. 4. The left ventricular chamber is mildly to moderately dilated with eccentric hypertrophy and an ejection fraction of approximately 20%. There is global hypokinesia present which is much worse in the inferoposterior; inferolateral and inferoapical segments. The inferior segments are essentially akinetic. 5. Enlargement of the right heart chambers is present with moderate tricuspid insufficiency, mild to moderate pulmonic insufficiency and an estimated RV systolic pressure of 42 mmHg. 6. Pacemaker wires are present in the right heart chambers. 7. Since the prior study, the LV systolic function has deteriorated further. Assessment/Plan Assessment/Plan The patient is an 89-year-old male with history of CAD, status post CABG, ICD, mechanical mitral for valve replacement who was admitted with acute on chronic heart failure with reduced ejection fraction. BUN creatinine are noted to be slightly above baseline, but have improved since presentation. Recommendations * Increase Lasix to 40 milligrams IV q 12 hours. * Follow input and output with daily weights. * Check basic metabolic profile daily. * Continue other cardiac medications. * Dose warfarin for INR 2.5 to 3.5. Consult Acknowledgment - Thank you for your consult request.
[2016-09-11 16:13] VITALS: BP 94/50
[2016-09-12 00:43] VITALS: BP 108/60
[2016-09-12 08:00] VITALS: BP 100/64
[2016-09-12 08:05] LABS: ABSOLUTE BASOPHIL COUNT 0 /CUMM (0.0-0.2); ABSOLUTE EOSINOPHIL COUNT 0.1 /CUMM (0.0-0.7); ABSOLUTE GRANULOCYTE CT 5.7 /CUMM (1.4-6.5); ABSOLUTE LYMPH COUNT 0.6 /CUMM (1.2-3.4); ABSOLUTE MONOCYTE COUNT 0.7 /CUMM (0.10-0.60); BASOPHIL % 0.4 % (0.0-2.0); EOSINOPHIL % 1.1 % (0-5); GRANULOCYTE % 80.5 % (42.2-75.2); HEMATOCRIT 29.8 % (42-52); MEAN CORPUSCULAR HGB 31.2 PG (27.0-31.0); MEAN CORPUSCULAR HGB CONC 34.2 G/DL (33.0-37.0); MEAN CORPUSCULAR VOLUME 91.2 FL (80.0-94.0); MEAN PLATELET VOLUME 9.4 FL (7.4-10.4); PLATELET COUNT 114 /CUMM (130-400); RBC DISTRIBUTION WIDTH 16.2 % (11.5-14.5); RED BLOOD CELL CT 3.26 /CUMM (4.70-6.10)
[2016-09-12 08:51] LABS: PT 27.6 SEC (9.4-12.5)
--- NOTE | 2016-09-12 09:19 | PN- Student ---
Subjective Subjective: 89 y.o. male seen and examined at bedside. Pt says he is feeling better, but is still feeling weak. Denies any new or different chest pain or SOB. Swelling in his legs has continued to decrease. He has been OOB to the bathroom without issues. Complains of pain in his right side that began early this morning around 400 when he got up with nursing to be weighed. The pain is localized, does not radiate, and he has never had it before. It is reproducible with palpation and is not aggrevated by movement or taking a deep breath. Denies trauma or inducing event. Has not noticed an overlying rash, says it is not puritic but he has scratched it. No other aggrevating or alleviating factors. Deneis history of herpes zoster. Objective Objective: Tele events: single paced, rate in 70's, QRS 0.04, inverted T waves in lead III at 000 General: awake and alert resting in bed in no acute distress Cardiac: S1 and S2 heard, RRR, metallic clicks heard Lungs: bilateral crackles in lower lung barboza Chest: severe tenderness to palpation right midaxillary line overlying the rib, overlying petchial rash with erythema extending anteriorly and posteriorly MSK: 1+ pitting edema of bilateral LE, calves soft nontender Psych: appropriate and cooperative with exam Results Results: Laboratory Tests 09/12/16 0650: Anion Gap 8, Estimated GFR 22 L, BUN/Creatinine Ratio 24.8, Magnesium 2.2, PT 27.6 H, INR 2.65 H, CBC w Diff NO MAN DIFF REQ, RBC 3.26 L, MCV 91.2, MCH 31.2 H, RDW 16.2 H, MPV 9.4, Gran % 80.5 H, Lymphocytes % 8.6 L, Monocytes % 9.4 H, Eosinophils % 1.1, Basophils % 0.4, Absolute Granulocytes 5.7, Absolute Lymphocytes 0.6 L, Absolute Monocytes 0.7 H, Absolute Eosinophils 0.1, Absolute Basophils 0, PUBS MCHC 34.2 09/11/16 0630: Urine Color YEL, Urine Clarity HAZY H, Urine pH 6.0, Ur Specific Fore[place] 1.010, Urine Protein TRACE H, Urine Ketones NEG, Urine Nitrite NEG, Urine Bilirubin NEG, Urine Urobilinogen 0.2, Ur Leukocyte Esterase LARGE H, Ur Microscopic SEDIMENT EXAMINED, Urine RBC 1-3, Urine WBC 15-25 H, Urine Bacteria MANY H, Urine Hemoglobin LARGE H, Urine Glucose NEG 09/11/16 0315: Troponin I 0.04 09/11/16 0315: Anion Gap 9, Estimated GFR 22 L, BUN/Creatinine Ratio 25.9 H, PT 36.6 H, INR 3.53 H, CBC w Diff NO MAN DIFF REQ, RBC 3.29 L, MCV 92.2, MCH 30.4, RDW 15.9 H, MPV 9.3, Gran % 76.1 H, Lymphocytes % 12.0 L, Monocytes % 10.5 H, Eosinophils % 1.0, Basophils % 0.4, Absolute Granulocytes 5.3, Absolute Lymphocytes 0.8 L, Absolute Monocytes 0.7 H, Absolute Eosinophils 0.1, Absolute Basophils 0, PUBS MCHC 33.0 09/10/16 2130: Troponin I 0.05 09/10/16 1600: PT 42.9 *H, INR 4.14 *H 09/10/16 1516: Anion Gap 10, Estimated GFR 21 L, BUN/Creatinine Ratio 25.2 H, Glucose 111 H, Calcium 9.2, Total Bilirubin 0.8, AST 43, ALT 39, Alkaline Phosphatase 80, Troponin I 0.04, Zsi-D-Zuccujqdupc Pept 9330 H, Total Protein 6.7, Albumin 3.7, Globulin 3.0, Albumin/Globulin Ratio 1.2, TSH 3.420, Free T4 2.06 H, CBC w Diff NO MAN DIFF REQ, RBC 3.33 L, MCV 91.7, MCH 30.9, RDW 16.3 H, MPV 9.2, Gran % 78.0 H, Lymphocytes % 11.0 L, Monocytes % 9.6 H, Eosinophils % 1.2, Basophils % 0.2, Absolute Granulocytes 5.5, Absolute Lymphocytes 0.8 L, Absolute Monocytes 0.7 H, Absolute Eosinophils 0.1, Absolute Basophils 0, PUBS MCHC 33.7 Microbiology 09/10 170 URINE ROUT: Urine Culture - COMP KLEBSIELLA OXYTOCA Assessment/Plan Assessment: 89 y.o. male h/o of CHF, CAD s/p CABG, metallic mitral valve replacement, pacemaker/defibrillator, CKD currently admitted for CHF exacerbation. This morning developed new onset pain and rash on right side. Differential for this includes musculoskeletal pain, pleuritis, costrochondritis, dermatitis, herpes zoster. Low suspicion for PE due to lack of additional respiratory symptoms. Plan: - daily weights with stict I/O's - daily BEP - IV Lasix 40 mg BID - coumadin dosed, INR today 2.65 - continue to follow pain and rash
--- NOTE | 2016-09-12 09:46 | PN- Housestaff ---
THIERRYEMILIJORI CABRAL 09/12/16 0946: Subjective Follow-up For: HFrEF [facility] valve CAD Tele-Events Since Last Visit: Single paced heart rate 69 Subjective: Seen and examined patient, offers no complaints. Denies shortness of breath, chest pain. Review of Systems Constitutional: Denies: chills, diaphoresis, fever, malaise, weakness, unexplained weight loss. Cardiovascular: Denies: chest pain, edema, orthopena, palpitations, peripheral edema, syncope. Respiratory: Denies: cough, hemoptysis, orthopnea, short of breath, sputum production, stridor, wheezing. Objective Last 24 Hrs of Vital Signs/I&O Vital Signs Date Time Temp Pulse Resp B/P Pulse O2 O2 Flow FiO2 Ox Delivery Rate 09/12 1110 97 Room Air 09/12 0814 69 108/60 09/12 0814 69 108/60 / 0800 97.6 69 20 100/64 96 /08 0043 98.0 69 20 108/60 95 03/08 0000 Room Air 09/11 2158 70 104/62 / 1850 94 Room Air / 1613 97.8 68 20 94/50 95 Room Air Intake & Output 09/12 1600 /08 0800 /08 0000 Intake Total 600 250 640 Output Total 700 900 700 Balance -100 -650 -60 Intake, IV 0 Intake, Oral 600 250 640 Number 2 0 Bowel Movements Output, Urine 700 900 700 Patient 140 lb Weight Physical Exam General Appearance: Alert, Oriented X3, Cooperative, No Acute Distress Cardiovascular: Regular Rate, Normal S1, Normal S2 Lungs: left basilar crackles Current Medications: Current Medications Sig/Yordy Start time Last Medication Dose Route Stop Time Status Admin Acetaminophen 325 MG Q6 PRN 09/11 0130 AC PO Albuterol Sulfate 3 ML BID 09/10 2200 AC 09/12 INH 1107 Amiodarone HCl 100 MG Q48 09/12 1000 DC PO Amiodarone HCl 100 MG Q48 09/12 1000 AC 09/12 PO 0814 Amiodarone HCl 200 MG Q48H 09/11 0600 AC 09/11 PO 0622 Finasteride 5 MG DAILY 09/11 1000 AC 09/12 PO 0814 Furosemide 40 MG 7:30 AM, & 4:30 PM 09/11 1915 AC 09/12 IV 0814 Furosemide 40 MG .STK-MED ONE 09/11 1816 DC IV 09/11 1817 Furosemide 40 MG DAILY 09/11 1000 DC 09/11 IV 1002 Levothyroxine Sodium 0.025 MG DAILY AC 09/11 0700 AC 09/12 PO 0633 Metoprolol Tartrate 12.5 MG BID 09/10 2200 AC 09/12 PO 0814 Pravastatin Sodium 20 MG 1700 09/11 1700 AC 09/11 PO 1802 Ramelteon 8 MG ONCE ONE 09/11 2115 DC / PO 09/11 2116 2158 Spironolactone 12.5 MG DAILY 09/11 1000 AC 09/12 PO 0814 Warfarin Sodium 2 MG COUMADIN 1700 ONE 09/12 1700 AC PO 09/12 1701 Last 24 Hrs of Lab/Jamar Results Last 24 Hrs of Labs/Mics: Laboratory Tests 09/12/16 0650: Anion Gap 8, Estimated GFR 22 L, BUN/Creatinine Ratio 24.8, Magnesium 2.2, PT 27.6 H, INR 2.65 H, CBC w Diff NO MAN DIFF REQ, RBC 3.26 L, MCV 91.2, MCH 31.2 H, RDW 16.2 H, MPV 9.4, Gran % 80.5 H, Lymphocytes % 8.6 L, Monocytes % 9.4 H, Eosinophils % 1.1, Basophils % 0.4, Absolute Granulocytes 5.7, Absolute Lymphocytes 0.6 L, Absolute Monocytes 0.7 H, Absolute Eosinophils 0.1, Absolute Basophils 0, PUBS MCHC 34.2 Assessment/Plan Assessment: 89-year-old gentleman of HFrEF s/p pacemaker defibrillator, CAD s/p CABG, 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 Problem list acute on Chronic HFrEF CAD [facility] mitral valve CKD BPH plan: -1800 fluid balance, daily weights, strict I/Os, on IV 40 mg lasix BID TSH/t4 WNL Echo done in Jun 22 showed LVEF of 20-25% cardio consulted appreciate recomendations INR 2.65 today, 2 mg of Coumadin was dosed creatinine stable at 2.7 today continue home medications amiodarone 100 mg and 200 mg on alternating days, metoprolol 25 mg PO BID, pravastatin 20 mg PO QD, spirinolactone 12.5 mg PO QD, synthroid 0.025mg and Finasteride 5 mg PO QD DVTppx: Coumadin heart healthy diet full code Problem List: 1. H/O mitral valve replacement with mechanical valve 2. Benign prostatic hyperplasia 3. Collapse of right lung 4. Acute on chronic renal insufficiency 5. HFrEF (heart failure with reduced ejection fraction) Pain Ratin Pain Location: Not applicable Pain Goal: Pain 4 or less Pain Plan: Current regimen Tomorrow's Labs & Rationales: Magnesium/INR/BP HONG ROBLERO,DEMETRIUS 09/12/16 1534: Attending MD Review Statement Attending Statement Attending MD Statement: examined this patient, discuss w/resident/PA/METAL OFF BEARER, agreed w/resident/PA/METAL OFF BEARER, discussed with family, reviewed EMR data (avail), discussed with nursing, discussed with case mgmt, reviewed images Attending Assessment/Plan: Patient's breathing looks better today. His O2 requirement also appears to be little less in his legs appear less swollen. Son Lasix 40 IV twice a day. We are keeping a close watch on his BUN and creatinine and dosing his Coumadin for his INR closer to 3. Dr. Golden saw him today and agreed with the plan. We have taken out the Rawls and PT is working with him.
--- NOTE | 2016-09-12 14:50 | NUR ---
WOUND CARE: LEFT BUTTOCKS STAGE 2 PRESSURE INJURY POA - 0.8 X 0.7 CM CLEAN DRY DERMAL BASE - PRESENT STATED PT HAS HAD WOUNDS FOR MONTHS WITH USE OF DESITIN OINTMENT RECOMNMEDNATION: DC DESITIN AND APPLY DUODERM Q 3 DAYS AND PRN - [place]ELYING POSITION - F/U AT [facility] AFTER DC IF FAILURE TO HEAL
[2016-09-12 16:46] VITALS: BP 106/73
--- NOTE | 2016-09-12 19:09 | PN- Cardiology ---
Subjective Subjective: DOing OK today with no specific complaints. LE edema improving. Respiratory status stable Objective Vital Signs and I&Os Vital Signs Date Time Temp Pulse Resp B/P Pulse O2 O2 Flow FiO2 Ox Delivery Rate 09/12 1846 98 Room Air Room Air 09/12 1646 97.0 73 20 106/73 96 Room Air 09/12 1600 Room Air 09/12 1110 97 Room Air 09/12 0814 69 108/60 09/12 0814 69 108/60 / 0800 97.6 69 20 100/64 96 /08 0043 98.0 69 20 108/60 95 03/08 0000 Room Air 09/11 2158 70 104/62 Intake & Output 09/12 1600 09/12 0800 09/12 0000 09/11 1600 09/11 0800 09/11 0000 Intake Total 600 250 640 914 240 240 Output Total 700 900 764 143 1922 400 Balance -100 -650 -60 -36 -960 -160 Intake, IV 0 14 Intake, Oral 600 250 640 900 240 240 Number 2 0 1 Bowel Movements Output, Urine 700 900 798 622 3575 400 Patient 140 lb 144 lb Weight Current Medications: Current Medications Sig/Yordy Start time Last Medication Dose Route Stop Time Status Admin Acetaminophen 325 MG Q6 PRN 09/11 0130 AC PO Albuterol Sulfate 3 ML BID 09/10 2200 AC 09/12 INH 1846 Amiodarone HCl 100 MG Q48 09/12 1000 DC PO Amiodarone HCl 100 MG Q48 09/12 1000 AC 09/12 PO 0814 Amiodarone HCl 200 MG Q48H 09/11 0600 AC 09/11 PO 0622 Finasteride 5 MG DAILY 09/11 1000 AC 09/12 PO 0814 Furosemide 40 MG 7:30 AM, & 4:30 PM 09/11 1915 AC 09/12 IV 1617 Levothyroxine Sodium 0.025 MG DAILY AC 09/11 0700 AC 09/12 PO 0633 Metoprolol Tartrate 12.5 MG BID 09/10 2200 AC 09/12 PO 0814 Pravastatin Sodium 20 MG 1700 09/11 1700 AC 09/12 PO 1617 Ramelteon 8 MG ONCE ONE 09/115 DC 09/11 PO 09/11 2116 2158 Spironolactone 12.5 MG DAILY 09/11 1000 AC 09/12 PO 0814 Warfarin Sodium 2 MG COUMADIN 1700 ONE 09/12 1700 DC 09/12 PO 09/12 1701 1618 Results Last 48 Hrs of Labs/Mics: Laboratory Tests 09/12/16 0650: Anion Gap 8, Estimated GFR 22 L, BUN/Creatinine Ratio 24.8, Magnesium 2.2, PT 27.6 H, INR 2.65 H, CBC w Diff NO MAN DIFF REQ, RBC 3.26 L, MCV 91.2, MCH 31.2 H, RDW 16.2 H, MPV 9.4, Gran % 80.5 H, Lymphocytes % 8.6 L, Monocytes % 9.4 H, Eosinophils % 1.1, Basophils % 0.4, Absolute Granulocytes 5.7, Absolute Lymphocytes 0.6 L, Absolute Monocytes 0.7 H, Absolute Eosinophils 0.1, Absolute Basophils 0, PUBS MCHC 34.2 09/11/16 0630: Urine Color YEL, Urine Clarity HAZY H, Urine pH 6.0, Ur Specific [place] 1.010, Urine Protein TRACE H, Urine Ketones NEG, Urine Nitrite NEG, Urine Bilirubin NEG, Urine Urobilinogen 0.2, Ur Leukocyte Esterase LARGE H, Ur Microscopic SEDIMENT EXAMINED, Urine RBC 1-3, Urine WBC 15-25 H, Urine Bacteria MANY H, Urine Hemoglobin LARGE H, Urine Glucose NEG 09/11/16 0315: Troponin I 0.04 09/11/16 0315: Anion Gap 9, Estimated GFR 22 L, BUN/Creatinine Ratio 25.9 H, PT 36.6 H, INR 3.53 H, CBC w Diff NO MAN DIFF REQ, RBC 3.29 L, MCV 92.2, MCH 30.4, RDW 15.9 H, MPV 9.3, Gran % 76.1 H, Lymphocytes % 12.0 L, Monocytes % 10.5 H, Eosinophils % 1.0, Basophils % 0.4, Absolute Granulocytes 5.3, Absolute Lymphocytes 0.8 L, Absolute Monocytes 0.7 H, Absolute Eosinophils 0.1, Absolute Basophils 0, PUBS MCHC 33.0 09/10/16 2130: Troponin I 0.05 Assessment/Plan Assessment/Plan Assessment: 1. Acute on chronic HFrEF 2. CAD s/p CABG 3. LE edema 4. Chronic renal insufficiency 5. Chronic anemia Recommendations: - Echo pending - COntinue diuresis with close monitoring of I/Os and daily labs. - Reassess in 24 hours and consider transition to po meds at that time. - PT evaluation Continue telemetry? Yes
[2016-09-12 21:11] VITALS: BP 94/60
[2016-09-13 00:45] VITALS: BP 80/40
[2016-09-13 08:30] VITALS: BP 114/60
--- NOTE | 2016-09-13 08:31 | PN- Student ---
Subjective Subjective: 89 y.o. male seen and examined at bedside. Pt says he is feeling a little bit better today. Denies any new or different chest pain or SOB. LE edema has continued to slowly decrease. Walked with PT yesterday, he says he was able to make it down the tunrer using a walker, which he uses at home. Continues to have SOB with walking short distances but breaths comfortably at rest. Pain on his right side chest wall has not changed. ROS: General: neg fever, chills Neuro: neg headache, weakness Cardiac: neg chest pain, palpitations Lungs: pos SOB with exertion GI: neg nausea/vomiting, diarrhea/constipation, abdominal pain : neg dysuria Objective Objective: Tele events: single-paced, rate 57-70 bpm, QRS 0.12-0.14, PVCs and BBB noted General: sitting up in the chair, awake and alert, in no acute distress Cardiac: S1 and S2 heard, RRR, metallic clicks heard Lungs: no signs of respiratory distress, breaths sounds decreased bilaterally with crackles Chest: pain in right side chest wall midaxillary line reproducible to deep palpation MSK: 1+ pitting edema in bilateral LEs, calves soft and nontender Psych: appropriate and cooperative with exam Results Results: Laboratory Tests 09/13/16 0635: Sodium Pending, Potassium Pending, Chloride Pending, Carbon Dioxide Pending, Anion Gap Pending, BUN Pending, Creatinine Pending, BUN/Creatinine Ratio Pending , Magnesium Pending, PT Pending, INR Pending 09/12/16 0650: Anion Gap 8, Estimated GFR 22 L, BUN/Creatinine Ratio 24.8, Magnesium 2.2, PT 27.6 H, INR 2.65 H, CBC w Diff NO MAN DIFF REQ, RBC 3.26 L, MCV 91.2, MCH 31.2 H, RDW 16.2 H, MPV 9.4, Gran % 80.5 H, Lymphocytes % 8.6 L, Monocytes % 9.4 H, Eosinophils % 1.1, Basophils % 0.4, Absolute Granulocytes 5.7, Absolute Lymphocytes 0.6 L, Absolute Monocytes 0.7 H, Absolute Eosinophils 0.1, Absolute Basophils 0, PUBS MCHC 34.2 09/11/16 0630: Urine Color YEL, Urine Clarity HAZY H, Urine pH 6.0, Ur Specific [place] 1.010, Urine Protein TRACE H, Urine Ketones NEG, Urine Nitrite NEG, Urine Bilirubin NEG, Urine Urobilinogen 0.2, Ur Leukocyte Esterase LARGE H, Ur Microscopic SEDIMENT EXAMINED, Urine RBC 1-3, Urine WBC 15-25 H, Urine Bacteria MANY H, Urine Hemoglobin LARGE H, Urine Glucose NEG 09/11/16 0315: Troponin I 0.04 09/11/16 0315: Anion Gap 9, Estimated GFR 22 L, BUN/Creatinine Ratio 25.9 H, PT 36.6 H, INR 3.53 H, CBC w Diff NO MAN DIFF REQ, RBC 3.29 L, MCV 92.2, MCH 30.4, RDW 15.9 H, MPV 9.3, Gran % 76.1 H, Lymphocytes % 12.0 L, Monocytes % 10.5 H, Eosinophils % 1.0, Basophils % 0.4, Absolute Granulocytes 5.3, Absolute Lymphocytes 0.8 L, Absolute Monocytes 0.7 H, Absolute Eosinophils 0.1, Absolute Basophils 0, PUBS MCHC 33.0 09/10/16 2130: Troponin I 0.05 09/10/16 1600: PT 42.9 *H, INR 4.14 *H 09/10/16 1516: Anion Gap 10, Estimated GFR 21 L, BUN/Creatinine Ratio 25.2 H, Glucose 111 H, Calcium 9.2, Total Bilirubin 0.8, AST 43, ALT 39, Alkaline Phosphatase 80, Troponin I 0.04, Xfu-O-Ubowhnhxphz Pept 9330 H, Total Protein 6.7, Albumin 3.7, Globulin 3.0, Albumin/Globulin Ratio 1.2, TSH 3.420, Free T4 2.06 H, CBC w Diff NO MAN DIFF REQ, RBC 3.33 L, MCV 91.7, MCH 30.9, RDW 16.3 H, MPV 9.2, Gran % 78.0 H, Lymphocytes % 11.0 L, Monocytes % 9.6 H, Eosinophils % 1.2, Basophils % 0.2, Absolute Granulocytes 5.5, Absolute Lymphocytes 0.8 L, Absolute Monocytes 0.7 H, Absolute Eosinophils 0.1, Absolute Basophils 0, PUBS MCHC 33.7 Microbiology 09/10 1702 URINE ROUT: Urine Culture - COMP KLEBSIELLA OXYTOCA Assessment/Plan Assessment: 89 y.o. male h/o CHF s/p pacemaker/defibrillator, CAD s/p CABG, metallic mitral valve replacement, CKD admitted with CHF exacerbation. Currently he is recovering well, LE edema is improving and he has had no increased SOB or chest pain off of baseline. Pain on right side chest wall has continued unchanged. Plan: - strict I/Os, follow daily weights - continue Lasix 40 mg BID, transition to PO meds - follow renal function tests - daily BEP - continue dosing Coumadin alternating 2 mg and 1 mg - follow PT recommendations
[2016-09-13 08:33] LABS: PT 25.3 SEC (9.4-12.5)
--- NOTE | 2016-09-13 08:46 | PN- Housestaff ---
THIERRYSERGIOJORI 09/13/16 0846: Subjective Follow-up For: HFrEF [facility] Jere valve CAD Tele-Events Since Last Visit: Single paced, 69-75, PVCs, bundle branch block Subjective: Seen and examined patient. Was ambulating comfortably and denied any complaints at that he felt much better today. Review of Systems Constitutional: Denies: chills, diaphoresis, fever, malaise, weakness, unexplained weight loss. Cardiovascular: Denies: chest pain, edema, orthopena, palpitations, peripheral edema, syncope. Respiratory: Denies: cough, hemoptysis, orthopnea, short of breath, sputum production, stridor, wheezing. Objective Last 24 Hrs of Vital Signs/I&O Vital Signs Date Time Temp Pulse Resp B/P Pulse O2 O2 Flow FiO2 Ox Delivery Rate 09/13 0903 79 114/60 09/13 0830 98.4 79 20 114/60 92 Room Air 09/13 0800 Room Air 09/13 0621 70 112/62 09/13 0045 97.9 73 18 80/40 92 Room Air 09/13 0000 Room Air 09/12 2113 69 94/60 09/12 2111 69 16 94/60 /08 1846 98 Room Air Room Air 09/12 1646 97.0 73 20 106/73 96 Room Air 09/12 1600 Room Air 09/12 1110 97 Room Air Intake & Output 09/13 1600 09/13 0800 09/13 0000 Intake Total 150 374 Output Total 600 300 Balance -450 74 Intake, IV 14 Intake, Oral 150 360 Output, Urine 600 300 Patient 142 lb Weight Physical Exam General Appearance: Alert, Oriented X3, Cooperative, No Acute Distress Cardiovascular: Normal S1, Normal S2 Lungs: Clear to Auscultation, Normal Air Movement Extremities: No Edema Current Medications: Current Medications Sig/Yordy Start time Last Medication Dose Route Stop Time Status Admin Acetaminophen 325 MG Q6 PRN 09/11 0130 AC PO Albuterol Sulfate 3 ML BID 09/10 2200 AC 09/12 INH 1846 Amiodarone HCl 100 MG Q48 09/12 1000 AC 09/12 PO 0814 Amiodarone HCl 200 MG Q48H 09/11 0600 AC 09/13 PO 0621 Finasteride 5 MG DAILY 09/11 1000 AC 09/13 PO 0903 Furosemide 40 MG DAILY 09/13 1000 AC PO Furosemide 40 MG 7:30 AM, & 4:30 PM 09/11 1915 DC 09/13 IV 0735 Levothyroxine Sodium 0.025 MG DAILY AC 09/11 0700 AC 09/13 PO 0619 Metoprolol Tartrate 12.5 MG BID 09/10 2200 AC 09/13 PO 0903 Pravastatin Sodium 20 MG 1700 09/11 1700 AC 09/12 PO 1617 Spironolactone 12.5 MG DAILY 09/11 1000 AC 09/13 PO 0903 Warfarin Sodium 2 MG COUMADIN 1700 ONE 09/13 1700 AC PO 09/13 1701 Warfarin Sodium 2 MG COUMADIN 1700 ONE 09/12 1700 DC 09/12 PO 09/12 1701 1618 Last 24 Hrs of Lab/Jamar Results Last 24 Hrs of Labs/Mics: Laboratory Tests 09/13/16 0635: Anion Gap 9, Estimated GFR 21 L, BUN/Creatinine Ratio 25.4 H, Magnesium 2.3, PT 25.3 H, INR 2.43 H Assessment/Plan Assessment: 89-year-old gentleman of HFrEF s/p pacemaker defibrillator, CAD s/p CABG, 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 Clinical improvement noted Problem list acute on Chronic HFrEF CAD [facility] Jere's mitral valve CKD stage IV BPH plan: -1100 fluid balance, daily weights, strict I/Os, addition to by mouth Lasix daily TSH/t4 WNL Echo done in Jun 22 showed LVEF of 20-25% cardio consulted appreciate recomendations INR 2.43 today, 1 mg of Coumadin will be dosed today creatinine stable at 2.8 today continue home medications amiodarone 100 mg and 200 mg on alternating days, metoprolol 25 mg PO BID, pravastatin 20 mg PO QD, spirinolactone 12.5 mg PO QD, synthroid 0.025mg and Finasteride 5 mg PO QD instructed to check BP on September 17thy DVTppx: Coumadin heart healthy diet full code Problem List: 1. H/O mitral valve replacement with mechanical valve 2. HFrEF (heart failure with reduced ejection fraction) 3. BPH (benign prostatic hypertrophy) with urinary retention Pain Ratin Pain Location: na Pain Goal: Pain 4 or less Pain Plan: current regimen Tomorrow's Labs & Rationales: bep HONG ROBLERODEMETRIUS 09/13/16 1425: Attending MD Review Statement Attending Statement Attending MD Statement: examined this patient, discuss w/resident/PA/SHIFT STACKER, agreed w/resident/PA/SHIFT STACKER, discussed with family, reviewed EMR data (avail), discussed with nursing, discussed with case mgmt, reviewed images Attending Assessment/Plan: Patient feels well. As per his , his legs are much less swollen and he was able to walk all around with physical therapy. PT is recommending STR but she feels that his goals are met and PT agrees that he is probably okay to go home. I explained to her at length the need to follow-up at CHF clinic the need for close weight monitoring and Lasix adjustment however she has a hard time getting him to the CHF clinic with regards to travel and transport. We spoke to Dr. Golden and we are going to send him out on Lasix 40 mg a day that's a higher dose than what he was on with the plan to check a BEP and BUN and creatinine on September 17. Given his CKD, we need to keep a close watch on his BUN and creatinine. He has asymptomatic bacteriuria with absolutely no symptoms at all and we are not treating that at this point.
[2016-09-13 09:03] VITALS: BP 114/60
[2016-09-13] MEDS ORDERED: LASIX40 M1 PO (10:01)
--- NOTE | 2016-09-13 13:49 | Patient Discharge Instructions ---
Discharge Instructions General Discharge Information You were seen/treated for: Shortness of breath, lower extremity swelling Special Instructions: Please follow-up with your primary care physician within one week of discharge Please follow-up with your suction worker within 1 weeks of discharge please check your BEP on September 17 Please follow-up with the CHF clinic Diet Recommended Diet: Heart Healthy Acute Coronary Syndrome Inclusion Criteria At DC or during hospital stay patient has or had the following: ACS DIAGNOSIS No Discharge Core Measures Meds if any: Prescribed or Continued at Discharge Meds if any: NOT Prescribed or Continued at Discharge Congestive Heart Failure Inclusion Criteria At DC or during hospital stay patient has or had the following: CHF DIAGNOSIS No Discharge Core Measures Meds if any: Prescribed or Continued at Discharge GRAHAM/ARB for EF <40% No Meds if any: NOT Prescribed or Continued at Discharge No GRAHAM/ARB d/t Medical Contraindication Cerebrovascular accident Inclusion Criteria At DC or during hospital stay patient has or had the following: CVA/TIA Diagnosis No Discharge Core Measures Meds if any: Prescribed or Continued at Discharge Meds if any: NOT Prescribed or Continued at Discharge Venous thromboembolism Inclusion Criteria VTE Diagnosis No VTE Type NONE VTE Confirmed by (Test) NONE Discharge Core Measures - Per Current guidelines, there needs to be overlap - treatment for the first 5 days of Warfarin therapy. - If discharged on Warfarin prior to 5 days of - overlap therapy, the patient will need to be - assessed for post discharge needs including - *Post discharge parental anticoagulation - *Warfarin and/or parental anticoagulation education - *Follow up date to check INR post discharge At least 5 days overlap therapy as Inpatient No Meds if any: Prescribed or Continued at Discharge Note: Overlap Therapy is Warfarin and Anticoagulant Meds if any: NOT Prescribed or Continued at Discharge
--- NOTE | 2016-09-13 17:31 | Discharge Summary ---
See Addendum Visit Information Visit Dates Admission Date: 09/10/16 Discharge Date: 09/13/16 Hospital Course Course Attending Physician: HONG ROBLERO,DEMETRIUS Christina Primary Care Physician: GERA ROBLERO,[facility] Course: 89-year-old gentleman with bilateral hearing impairment past medical history significant for HFrEF s/p pacemaker/defibrillator, CAD s/p CABG, metallic mitral prosthetic valve on warfarin, CKD, recent admission to [facility] in [facility] for CHF exacerbation. Was brought by and daughter for worsening bilateral lower extremity swelling of one week duration. His agency sales management assistant Dr. Golden had increased his dose of Lasix a couple of weeks prior to admission. Stated that he had gained about 2-3 pounds over the course of the week. He does continue to sprinkle salt on his diet. Reported compliance with medication. T: 97.9, SC 71, BP 90/52, RR 20, O2 sat 92% RA Pertinent Lab data: Hb 10.3, Hct 30.5, BUN 73, Cr 2.9, GFR 21, G 111, ProBNP 9330( [id number] Jun 22). INR 4.14. UA was postive for Leukocte Esterase. EKG: ventricular paced, 70, QTC 575. CXR: Persistent right-sided pleural effusion with associated right basilar opacification.Stable prominence of the cardiac silhouette, without overt pulmonary edema. He was admitted to the tele floor and the following issues were addressed: Acute on chronic HFrEF He was started on IV Lasix and diuresed well and was transitioned to PO lasix. Clinical improvent in his lower extremity swelling was noted. Per cardiology recomendation we are discharging him on Lasix 40 mg a day, a higher dose than what he usually takes. Echo done in Jun 22 showed LVEF of 20-25%. His Mission Support Specialist Dr Golden followed him during his hopitalization. Extensive counselling was done on the importance of follow up with the CHF clinic. CAD s/p CABG/St Jere's mitral valve On admission he was supratherapeutic and his coumadin was held. Coumadin was then dose per daily INR, with INR goal between 2.5 and 3.5. His home meds of Metoprolol, Pravastatin, spirinolactone were continued. Hyperthyroidism TSH/t4 were within normal limits and Synthroid was continued Chronic renal insufficiency His creatinine remained stable around 2.8 (baseline 2017 has been 2.5-2.7), instructed to check BEP on September 17. BPH continued Finasteride UA postive for Leukocte Esterase. We deemed this as symptomatic bacteriuria and decsion was made not to treat. He remained afebrile with no increase in white count. DVTppx: Coumadin heart healthy diet He was full code Complications: none Allergies: Coded Allergies: sulfamethoxazole (From Bactrim) (RASH 09/11/15) trimethoprim (From Bactrim) (RASH 09/11/15) Significant Procedures: SERVICE DATE: 09/10/16 EXAM TYPE: RAD - XRY-PORTABLE CHEST XRAY FINDINGS: Single AP view of the chest demonstrates blunting of the right costophrenic angle, corresponding to a small to moderate right-sided pleural effusion. Right basilar opacification is nonspecific and could reflect atelectasis although superimposed infection cannot be excluded in the appropriate clinical setting. No left-sided pleural fluid is identified. Cardiomediastinal contours are stable and there is stable prominence of the cardiac silhouette, without overt pulmonary edema. Redemonstrated is a left chest wall AICD. Median sternotomy wires are in place. No pneumothoraces are identified. IMPRESSION: Persistent small to moderate right-sided pleural effusion with associated right basilar opacification. This could reflect atelectasis although superimposed infection is not excluded in the appropriate clinical setting. Stable prominence of the cardiac silhouette, without overt pulmonary edema. Disposition Summary Disposition Principal Diagnosis: Acute on Chronic HFrEF Additional Diagnosis: CAD [facility] Jere's mitral valve CKD stage IV BPH Discharge Disposition: home health services Discharge Instructions General Discharge Information Code Status: Full Code Patient's Diet: Heart healthy diet Patient's Activity: as tolerated Follow-Up Instructions/Appts: follow-up with primary care physician within one week of discharge Please follow-up with agency sales management assistant within 1 weeks of discharge please check your BEP on September 17 Please follow-up with the CHF clinic Medications at Discharge Discharge Medications: Stop taking the following medications: Furosemide (Furosemide) 20 MG TABLET ORAL DAILY Continue taking these medications: Amiodarone HCl (Amiodarone HCl) 200 MG TABLET 100 Milligram ORAL EVERY 48 HOURS (Every 2 days) Comments: Last Taken: 09/12/16 Time: 8AM Pravastatin Sodium (Pravastatin Sodium) 20 MG TABLET 1 Tablet ORAL DAILY Qty = 90 Comments: Last Taken: 09/12/16 Time: 4PM Levothyroxine Sodium (Levothyroxine Sodium) 25 MCG TABLET 1 Tablet ORAL DAILY BEFORE BREAKFAST Qty = 30 Comments: Last Taken: 09/13/16 Time: 6 AM Amiodarone HCl (Amiodarone HCl) 200 MG TABLET 1 Tablet ORAL Every other day Comments: Last Taken: 09/13/16 Time: 6AM Finasteride (Finasteride) 5 MG TABLET 1 Tablet ORAL DAILY Qty = 30 Comments: Last Taken: 09/13/16 Time: 9 AM Metoprolol Tartrate (Metoprolol Tartrate) 25 MG TABLET 0.5 Tablet ORAL TWICE DAILY Comments: Last Taken: 09/13/16 Time: 9AM PT RECEIVED 12.5MG Spironolactone (Spironolactone) 25 MG TABLET 0.5 Tablet ORAL DAILY Qty = 45 Comments: Last Taken: 09/13/16 Time: 9 AM Warfarin Sodium (Coumadin) 2 MG TABLET 1 Tablet ORAL Every other day Comments: Last Taken: 09/12/16 Time: 5PM Warfarin Sodium (Coumadin) 1 MG TABLET 1 Tablet ORAL Every other day Comments: Last Taken: 09/13/16 Time: 3PM Albuterol Sulfate (Albuterol Sulfate) 0.63 MG/3 ML VIAL.NEB 1 Vial Inhale Solution TWICE DAILY Qty = 150 Comments: Last Taken: 09/13/16 Time: 11AM Start taking the following new medications: Furosemide (Lasix) 40 MG TABLET 40 Milligram ORAL DAILY Qty = 7 No Refills Instructions: please follow up with agency sales management assistant within a week to reassess Copies To: NIMA ROBLERO,Pura GALVAN; GERA ROBLERO,PHYLLIS Attending MD Review Statement Documenting Attending: HONG ROBLERO,DEMETRIUS Christina
--- NOTE | 2016-09-13 20:09 | PN- Cardiology ---
Subjective Subjective: Doing well with improvement in edema and on new issues or symptoms Objective Vital Signs and I&Os Vital Signs Date Time Temp Pulse Resp B/P Pulse O2 O2 Flow FiO2 Ox Delivery Rate 09/13 1153 94 Room Air 09/13 0903 79 114/60 09/13 0830 98.4 79 20 114/60 92 Room Air 09/13 0800 Room Air 09/13 0621 70 112/62 09/13 0045 97.9 73 18 80/40 92 Room Air 09/13 0000 Room Air 09/12 2112 69 94/60 09/12 2110 69 16 94/60 Intake & Output 09/13 1600 09/13 0809/13 0000 09/12 1600 09/12 0000 Intake Total 734 150 374 600 250 640 Output Total 425 600 300 700 900 700 Balance 309 -450 74 -100 -650 -60 Intake, IV 14 14 0 Intake, Oral 720 150 360 600 250 640 Number 1 2 0 Bowel Movements Output, Urine 425 600 300 700 900 700 Patient 142 lb 140 lb Weight Current Medications: Current Medications Sig/Yordy Start time Last Medication Dose Route Stop Time Status Admin Acetaminophen 325 MG Q6 PRN 09/11 0130 DCD PO Albuterol Sulfate 3 ML BID 09/10 2199 DCD 09/13 INH 1133 Amiodarone HCl 100 MG Q48 09/12 1000 DCD 09/12 PO 0814 Amiodarone HCl 200 MG Q48H 09/11 599 DCD 09/13 PO 0621 Finasteride 5 MG DAILY 09/11 1000 DCD 09/13 PO 0903 Furosemide 40 MG DAILY 09/13 1000 DCD PO Furosemide 40 MG 7:30 AM, & 4:30 PM 09/11 1915 DC 09/13 IV 0735 Levothyroxine Sodium 0.025 MG DAILY AC 09/11 699 DCD 09/13 PO 0619 Metoprolol Tartrate 12.5 MG BID 09/10 2199 DCD 09/13 PO 0903 Patient Medication 1 ED .STK-MED ONE 09/13 1344 DC Teaching ED 09/13 1345 Pravastatin Sodium 20 MG 1700 09/11 1700 DCD 09/12 PO 1617 Spironolactone 12.5 MG DAILY 09/11 1000 DCD 09/13 PO 0903 Warfarin Sodium 2 MG COUMADIN 1700 ONE 09/13 1700 DC PO 09/13 1701 Warfarin Sodium 1 MG COUMADIN 1700 ONE 09/13 1700 DCD 09/13 PO 09/13 1701 1532 Results Last 48 Hrs of Labs/Mics: Laboratory Tests 09/13/16 0635: Anion Gap 9, Estimated GFR 21 L, BUN/Creatinine Ratio 25.4 H, Magnesium 2.3, PT 25.3 H, INR 2.43 H 09/12/16 0650: Anion Gap 8, Estimated GFR 22 L, BUN/Creatinine Ratio 24.8, Magnesium 2.2, PT 27.6 H, INR 2.65 H, CBC w Diff NO MAN DIFF REQ, RBC 3.26 L, MCV 91.2, MCH 31.2 H, RDW 16.2 H, MPV 9.4, Gran % 80.5 H, Lymphocytes % 8.6 L, Monocytes % 9.4 H, Eosinophils % 1.1, Basophils % 0.4, Absolute Granulocytes 5.7, Absolute Lymphocytes 0.6 L, Absolute Monocytes 0.7 H, Absolute Eosinophils 0.1, Absolute Basophils 0, PUBS MCHC 34.2 Assessment/Plan Assessment/Plan Assessment: 1. Acute on chronic HFrEF 2. CAD s/p CABG 3. LE edema 4. Chronic renal insufficiency 5. Chronic anemia Recommendations: - Echo noted - Patient appears stable for discharge. - Home diuretics as outlined - FOllowup with me in the office in one week Continue telemetry? No
== END 2016-09-13 16:05 | disposition home health service (06) | DRG 291 ==
LOC: ENRESERVTM → ENRESERVDT → ERH 14:06 → ENPENDDIS 17:28 → 1NO 17:28 → ERHI 17:28 → 1NO 20:00
PROVIDERS: Internal Medicine; Physician Assistant Medical; ADMIT Internal Medicine
DX: I13.0 Hypertensive heart and chronic kidney disease with heart failure and stage 1 through stage 4 chronic kidney disease, or unspecified chronic kidney disease (principal); I50.23 Acute on chronic systolic (congestive) heart failure; N18.4 Chronic kidney disease, stage 4 (severe); N17.9 Acute kidney failure, unspecified; I42.9 Cardiomyopathy, unspecified; D53.9 Nutritional anemia, unspecified; I25.10 Atherosclerotic heart disease of native coronary artery without angina pectoris; Z95.2 Presence of prosthetic heart valve; Z79.01 Long term (current) use of anticoagulants; Z95.5 Presence of coronary angioplasty implant and graft; N40.0 Benign prostatic hyperplasia without lower urinary tract symptoms; Z95.1 Presence of aortocoronary bypass graft; Z95.810 Presence of automatic (implantable) cardiac defibrillator
CPT/HCPCS: 1NP; 36415; 81001; 82436; 87086; 93005; 93010; 97110-GO; 97116-GO; 97162-GP; 97530-GO; J1940

== ENCOUNTER 2016-10-27 10:38 | Inpatient (IN) | payer OTHER ==
[~2016-10-27] VITALS: Ht 167.6 cm; Wt 65.3 kg
[~2016-10-27 10:38] MED LIST changes: +ALBUTEROL0.63 MG/1 INH/SOL; +COUMADIN1 M1 PO; +LASIX40 M1 PO; +METOPROLOL TART25 M1 PO
--- NOTE | 2016-10-27 10:51 | NUR ---
PT TO ED FOR INC SOB AND BILATERAL LOWER EXTREMITY SWELLING L SIDE WORSE THAN RIGHT. PT O2 91% ON RA. INC WOB NOTED. PT DENIES CP. +NAUSEA "BUT THAT'S NORMAL FOR ME." HX CHF. EKG DONE IN [place] AND PT TAKEN TO ROOM 4 VIA STRETCHER.
--- NOTE | 2016-10-27 10:55 | NUR ---
PT TO ROOM 4, CHANGED INTO GOWN. PLACED ON MONITOR. AWAITING EVAL.
--- NOTE | 2016-10-27 11:00 | NUR ---
PA STUDENT IN FOR EVAL.
--- NOTE | 2016-10-27 11:02 | ED DYSPNEA/ASTHMA COMPLAINT ---
History of Present Illness General Chief Complaint: Dyspnea (COPD, CHF, Other) Stated Complaint: DIFFICULTY BREATHING, BILATERAL PEDAL EDEMA Source: patient Exam Limitations: no limitations Allergies Coded Allergies: sulfamethoxazole (From Bactrim) (RASH 09/11/15) trimethoprim (From Bactrim) (RASH 09/11/15) Reconcile Medications Amiodarone HCl 200 MG TABLET 100 MG PO Q48 HEART HEALTH (Reported) Amiodarone HCl 200 MG TABLET 1 TAB PO EOD HEART HEALTH (Reported) Finasteride 5 MG TABLET 1 TAB PO DAILY PROSTATE Furosemide (Lasix) 40 MG TABLET 40 MG PO DAILY chf please follow up with systems security analyst within a week to reassess Levothyroxine Sodium 25 MCG TABLET 1 TAB PO DAILY AC THYROID (Reported) Metoprolol Tartrate 25 MG TABLET 0.5 TAB PO BID HEART/BP (Reported) Pravastatin Sodium 20 MG TABLET 1 TAB PO DAILY CHOLESTEROL (Reported) Spironolactone 25 MG TABLET 0.5 TAB PO DAILY DIURETIC (Reported) Warfarin Sodium (Coumadin) 2 MG TABLET 1 TAB PO SAT, SUN BLOOD THINNER ( Reported) Warfarin Sodium (Coumadin) 1 MG TABLET 1 TAB PO MON-FRI BLOOD THINNER ( Reported) Triage Note: PT TO ED FOR INC SOB AND BILATERAL LOWER EXTREMITY SWELLING L SIDE WORSE THAN RIGHT. PT O2 91% ON RA. INC WOB NOTED. PT DENIES CP. +NAUSEA "BUT THAT'S NORMAL FOR ME." HX CHF. Triage Nurses Notes Reviewed? yes Onset: Gradual Duration: week(s): (1) Timing: recent history Severity: moderate Activities at Onset: none Prior Episodes/Possible Cause: occasional episodes Modifying Factors: Improves With: immobilization. Worsens With: movement. Associated Symptoms: leg edema HPI: Patient is a 10-year-old male with history of CHF, chronic renal failure presenting to the emergency Department chief complaint of increasing weight, shortness of breath, increasing lower extremity edema has been going on for the past one week. Denies any productive cough. He also reports feeling itchy and a painful rash that comes and goes. The rash is worse in the morning and then fades throughout the afternoon. Denies any new exposures or travel. No rales with rash. Has been taking Lasix 40 mg a day with no change in lower extremity edema. Denies any trauma. No chest pain or palpitations. (POOL COVINGTON) Vital Signs & Intake/Output Vital Signs & Intake/Output Vital Signs Date Time Temp Pulse Resp B/P B/P Pulse O2 O2 Flow FiO2 Mean Ox Delivery Rate 10/27 1232 97.0 70 20 105/61 98 Room Air 10/27 1100 95 Room Air 10/27 1048 96.5 78 18 120/80 91 Room Air Past History Travel History Traveled to [place] past 21 day No Medical History Any Pertinent Medical History? 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 ON LASIX Gastrointestinal: NONE Hepatic: NONE Renal: chronic azotemia for which she has never seen a cloud architect over the years as well as episodes of acute kidney injury when he had hypotension. Musculoskeletal: NONE Psychiatric: NONE Endocrine: NONE Blood Disorders: NONE Cancer(s): NONE GENERAL SUPERINTENDENT/Reproductive: NONE Other Medical Hx: Hypertension, high cholesterol, mitral valve replacement, CAD, A. fib History of MRSA: No History of VRE: No History of CDIFF: No Influenza Vaccine: 03/08/16 Surgical History Surgical History: MITRAL VALVE, 3 STENTS, DEFIBRILLATOR IN PLACE, pilonidal cyst AICD placement Psychosocial History Who do you live with Spouse What is your primary language [place]ican Tobacco Use: Quit >30 days ago ETOH Use: denies use Illicit Drug Use: denies illicit drug use Family History Family History, If Any: FATHER FH: stroke MOTHER FH: heart disease Hx Contributory? No (POOL COVINGTON) Review of Systems Review of Systems Constitutional: Reports: malaise, weakness. Comments Review of systems: See HPI, All other systems negative. Constitutional, no chills fever or weight loss HEENT: No visual changes no sore throat Cardiovascular: No chest pain ,palpitation Skin, no jaundice no rashes Respiratory: No cough sputum or hemoptysis GI: No nausea no vomiting : No dysuria No hematuria Muscle skeletal: no back pain, no neck pain, Neurologic: No numbness no confusion no henderson Psych: No stress anxiety or depression,. Heme/endocrine: No bruising no bleeding no polyuria or polydipsia Immunology: No splenectomy or history of AIDS (POOL COVINGTON) Physical Exam Physical Exam General Appearance: well developed/nourished, no apparent distress, alert, comfortable Respiratory: decreased breath sounds Comments: Well-developed well-nourished person in no acute distress HEENT: Pupils equally round and reactive to light and accommodation. Nose is atraumatic. External auditory canal and Tympanic membranes clear. Pharynx normal. No swelling or edema. Neck: Supple, no lymphadenopathy, normal range of motion without pain or tenderness Back: Nontender Cardiovascular: Regular rate and rhythms no murmurs rubs or gallops, normal JVP Respiratory: Chest nontender. No respiratory distress.breath sounds extremely diminished to auscultation bilaterally, able to appreciate scant crackles at the bases. Abdomen: Soft, mildly tender to palpation diffusely, no point tenderness, no guarding or rebound tenderness nondistended, no appreciable organomegaly. Normal bowel sounds. No ascites Extremity: 3+ pitting edema bilaterally. Pedal pulses are 1+ bilaterally. Neuro: Alert oriented x3 Skin: Patchy erythematous rash noted on the back on the upper aspect, blanchable , mildly tender to palpation. Psych: Mood and affect is normal, memory and judgment is normal. Core Measures ACS in differential dx? No Severe Sepsis Present: No Septic Shock Present: No (ARACELI MIRANDA,POOL) Progress Differential Diagnosis: bronchitis, CHF, COPD, musculoskeletal pain, pulmonary embolism, pneumonia Diagnostic Imaging: Viewed by Me: Radiology Read. Discussed w/RAD: Radiology Read. Radiology Impression: PATIENT: REAGAN GUTIERREZ PRESENT AGE: 89 PATIENT ACCOUNT NO: [id number] : [birth year] LOCATION: [facility] ORDERING PHYSICIAN: POOL MIRANDA SERVICE DATE: 10/27/16 EXAM TYPE: RAD - XRY-PORTABLE CHEST XRAY EXAMINATION: XR PORTABLE CHEST CLINICAL INFORMATION: Shortness of breath. COMPARISON: CXR from 06/18/2016 and 09/10/2016. Chest CT from 06/15/2016. TECHNIQUE: Portable AP view of the chest was obtained. FINDINGS : Again noted is the large cardiac silhouette with biventricular and right atrial AICD/pacemaker in place. Sternotomy wires are intact. There is grossly stable dilatation of the thoracic aorta. Again noted is right diaphragm elevation, small right pleural effusion and right basilar opacity (likely persistent atelectasis). Central pulmonary vessels appear chronically enlarged and there is similar interstitial prominence in mid to lower lung zones. The hazy, linear opacity in the retrocardiac region of left lower lobe is suggestive of atelectasis. No acute skeletal abnormality. IMPRESSION: 1. Cardiomegaly and central vascular congestion without acute interstitial edema. 2. No appreciable change in small right pleural effusion and right basilar opacity/atelectasis. Likely mild atelectasis in retrocardiac region of left lower lobe, as well. No significant, new findings in the chest compared to the prior radiographs. DICTATED BY: GORDON GARDNER MD DATE/TIME DICTATED:10/27/161145 CREEL HAND:MALIKA DATE/TIME TRANSCRIBED:10/27/161145 CONFIDENTIAL, DO NOT COPY WITHOUT APPROPRIATE AUTHORIZATION. <Electronically signed in Other Vendor System> SIGNED BY: GORDON GARDNER MD 10/27/16 1156 Initial ED EKG: atrial sensed and tracheal patient denies any permanent Comments: 10/27/2016 1:51:41 PM patient will be started on a dobutamine drip, then will also be given Lasix. Patient will be admitted for CHF as well as acute on chronic renal failure. Family members informed of all lab tests results, all questions answered. Patient's vitals are stable at this time. Alberto Daniel MD evaluated the patient as well and agrees with plan. (ARACELI MIRANDA,POOL) Plan of Care: Orders Procedure Date/time Status Admit to inpatient 10/27 1341 Active Patient Data 10/27 1337 Active Alternative Nursing Therapy 10/27 1243 Active Telemetry/Mobile Engineer 10/27 1057 Active TROPONIN LEVEL 10/27 1057 Complete PARTIAL THROMBOPLASTIN TIME 10/27 1057 Complete PROTHROMBIN TIME 10/27 1057 Complete LACTIC ACID 10/27 1057 Complete COMPREHENSIVE METABOLIC PANEL 10/27 1057 Complete CBC WITHOUT DIFFERENTIAL 10/27 1057 Complete B-TYPE NATRIURETIC PEP (BNP) 10/27 1057 Complete EKG 10/27 1040 Active Current Medications Sig/Yordy Start time Last Medication Dose Stop Time Status Admin Dobutamine HCl 250 MG ONCE ONE 10/27 1345 UNir (Dobutamine Drip (in 10/27 1346 Dextrose)) Dextrose/Water 250 ML (D5W) Furosemide 40 MG ONCE ONE 10/27 1200 CAN (Lasix) 10/27 1201 Laboratory Tests 10/27/16 1121: Anion Gap 13, Estimated GFR 16 L, BUN/Creatinine Ratio 30.3 H, Glucose 119 H, Lactic Acid 0.9, Calcium 8.9, Total Bilirubin 1.0, AST 48, ALT 56, Alkaline Phosphatase 77, Troponin I 0.06, Pgs-A-Wvrhmotecxl Pept 57409 H, Total Protein 6.7, Albumin 3.8, Globulin 2.9, Albumin/Globulin Ratio 1.3, PT 35.1 H, INR 3.38 H, APTT 40 H, CBC w Diff NO MAN DIFF REQ, RBC 3.46 L, MCV 92.9, MCH 31.0, RDW 15.8 H, MPV 9.0, Gran % 81.6 H, Lymphocytes % 7.5 L, Monocytes % 9.6 H, Eosinophils % 1.1, Basophils % 0.2, Absolute Granulocytes 4.0, Absolute Lymphocytes 0.4 L, Absolute Monocytes 0.5, Absolute Eosinophils 0.1, Absolute Basophils 0, PUBS MCHC 33.4 Departure Departure Time of Disposition: 1237 Disposition: STILL A PATIENT Condition: Stable Clinical Impression Primary Impression: Acute on chronic renal failure Secondary Impressions: Congestive heart failure Qualifiers: Congestive heart failure type: unspecified congestive heart failure type Congestive heart failure chronicity: acute on chronic Qualified Code: I50.9 - Heart failure, unspecified Referrals: PHYLLIS BOSS MD (PCP/Family) Departure Forms: Customer Survey General Discharge Information Admission Note Spoke With: JOSH CALLES MD Documentation of Exam: Documentation of any treatments & extenuating circumstances including Concerns Regarding Discharge (functional status, medication knowledge or non-compliance, living conditions, etc.) that warrant an admission rather than observation: Patient requiring telemetry monitoring, may require dobutamine drip for CHF exacerbation, leg elevation, nephrology consultation secondary to acute worsening of renal failure. Cardiology consultation. Patient does have elevated BUN which could indicate dehydration, slow hydration may be indicated. (POOL COVINGTON) PA/JAVA SYSTEMS ANALYST Co-Sign Statement Statement: ED Attending supervision documentation- [X] I saw and evaluated the patient. I have also reviewed all the pertinent lab results and diagnostic results. I agree with the findings and the plan of care as documented in the PA's/JAVA SYSTEMS ANALYST's documentation. [] I have reviewed the ED Record and agree with the PA's/JAVA SYSTEMS ANALYST's documentation. [] Additions or exceptions (if any) to the PAs/JAVA SYSTEMS ANALYST's note and plan are summarized below: [] (JOSE JUAN ROBLERO,ALBERTO Dumont) Critical Care Note Critical Care Note Critical Care Time: 30-74 min (ARACELI MIRANDA,POOL)
--- NOTE | 2016-10-27 11:14 | NUR ---
PORT CXR DONE
[2016-10-27 11:31] LABS: ABSOLUTE BASOPHIL COUNT 0 /CUMM (0.0-0.2); ABSOLUTE EOSINOPHIL COUNT 0.1 /CUMM (0.0-0.7); ABSOLUTE LYMPH COUNT 0.4 /CUMM (1.2-3.4); ABSOLUTE MONOCYTE COUNT 0.5 /CUMM (0.10-0.60); BASOPHIL % 0.2 % (0.0-2.0); EOSINOPHIL % 1.1 % (0-5); GRANULOCYTE % 81.6 % (42.2-75.2); HEMATOCRIT 32.1 % (42-52); MEAN CORPUSCULAR HGB CONC 33.4 G/DL (33.0-37.0); MEAN CORPUSCULAR VOLUME 92.9 FL (80.0-94.0); PLATELET COUNT 130 /CUMM (130-400); RBC DISTRIBUTION WIDTH 15.8 % (11.5-14.5); RED BLOOD CELL CT 3.46 /CUMM (4.70-6.10); WHITE BLOOD CELL COUNT 4.9 /CUMM (4.8-10.8)
[2016-10-27 11:44] LABS: PT 35.1 SEC (9.4-12.5); PTT 40 SEC (25-37)
--- NOTE | 2016-10-27 11:46 | NUR ---
RUTH CHARLES IN FOR EVKATIUSKA. RT CALLED FOR ELPIDIO
--- NOTE | 2016-10-27 11:54 | NUR ---
CRITICAL TEST RESULTS [id number] REAGAN GUTIERREZ 89 M TESTS AND RESULTS: BUN 112 Results received and read back by: BLAKE ROSENTHAL Results received date and time: 10/27/16 1154 The following provider was notified of the results, and read the results back: RUTH CHARLES Notified date and time: 10/27/16 at 1154
--- NOTE | 2016-10-27 11:56 | RADIOLOGY REPORT ---
EXAMINATION: XR PORTABLE CHEST CLINICAL INFORMATION: Shortness of breath. COMPARISON: CXR from 06/18/2016 and 09/10/2016. Chest CT from 06/15/2016. TECHNIQUE: Portable AP view of the chest was obtained. FINDINGS: Again noted is the large cardiac silhouette with biventricular and right atrial AICD/pacemaker in place. Sternotomy wires are intact. There is grossly stable dilatation of the thoracic aorta. Again noted is right diaphragm elevation, small right pleural effusion and right basilar opacity (likely persistent atelectasis). Central pulmonary vessels appear chronically enlarged and there is similar interstitial prominence in mid to lower lung zones. The hazy, linear opacity in the retrocardiac region of left lower lobe is suggestive of atelectasis. No acute skeletal abnormality. IMPRESSION: 1. Cardiomegaly and central vascular congestion without acute interstitial edema. 2. No appreciable change in small right pleural effusion and right basilar opacity/atelectasis. Likely mild atelectasis in retrocardiac region of left lower lobe, as well. No significant, new findings in the chest compared to the prior radiographs.
--- NOTE | 2016-10-27 12:30 | NUR ---
AWAITING DISPO/POC Informed waiting has been performed.
--- NOTE | 2016-10-27 13:44 | History & Physical ---
CAROLE TORRES 10/27/16 1344: General Information and HPI MD Statement: I have seen and personally examined REAGAN GUADALUPE and documented this H&P. The patient is a 89 year old M who presented with a patient stated chief complaint of [LE swelling, shortness of breath at rest, weight gain]. Source of Information: patient, family, old records Exam Limitations: no limitations History of Present Illness: Mr Guadalupe is an 89 y/o gentleman with PMH of HFrEF 20-25% (06/08/2016), RVSP 42 mmHg, PPM/defibrillator, 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 Over the past 2 weeks he has had noticeable increased shortness of breath at rest that was previously only noticed with exertion. He also endorses lower extremity swelling and weight gain from 154-161lbs. His reports compliance with low-salt diet and daily furosemide 40 mg. He does endorse increased urinary frequency but denies any discomfort with this. Since his last discharge he went to the CHF clinic twice but due to worsening leg swelling and difficulty with walking he missed his last scheduled appointment on Saturday. He complains of a chronic dry cough and one episode of hives that broke out over his back and chest yesterday evening. He denies any sick contacts, fevers, chills, sore throat, runny nose, sneezing, chest pain, palpitations, nausea, abdominal pain and diarrhea bloody stools. Allergies/Medications Allergies: Coded Allergies: sulfamethoxazole (From Bactrim) (RASH 09/11/15) trimethoprim (From Bactrim) (RASH 09/11/15) Home Med list Amiodarone HCl 200 MG TABLET 100 MG PO Q48 HEART HEALTH (Reported) Amiodarone HCl 200 MG TABLET 1 TAB PO EOD HEART HEALTH (Reported) Finasteride 5 MG TABLET 1 TAB PO DAILY PROSTATE Furosemide (Lasix) 40 MG TABLET 40 MG PO DAILY chf please follow up with tower equipment repairer within a week to reassess Levothyroxine Sodium 25 MCG TABLET 1 TAB PO DAILY AC THYROID (Reported) Metoprolol Tartrate 25 MG TABLET 0.5 TAB PO BID HEART/BP (Reported) Pravastatin Sodium 20 MG TABLET 1 TAB PO DAILY CHOLESTEROL (Reported) Spironolactone 25 MG TABLET 0.5 TAB PO DAILY DIURETIC (Reported) Warfarin Sodium (Coumadin) 2 MG TABLET 1 TAB PO SAT, SUN BLOOD THINNER ( Reported) Warfarin Sodium (Coumadin) 1 MG TABLET 1 TAB PO MON-FRI BLOOD THINNER ( Reported) Past History Travel History Traveled to [place] past 21 day No Medical History Neurological: NONE EENT: hearing loss Cardiovascular: CAD, cardiomyopathy, hypertension, CHF, IRREG 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 ON LASIX Gastrointestinal: NONE Hepatic: NONE Renal: chronic azotemia for which she has never seen a cleaner housekeeping over the years as well as episodes of acute kidney injury when he had hypotension. Musculoskeletal: NONE Psychiatric: NONE Endocrine: NONE Blood Disorders: NONE Cancer(s): NONE HEALTH CARE LAW SPECIALIST/Reproductive: NONE Other Medical Hx: Hypertension, high cholesterol, mitral valve replacement, CAD, A. fib History of MRSA: No History of VRE: No History of CDIFF: No Influenza Vaccine: 03/08/16 Surgical History Surgical History: MITRAL VALVE, 3 STENTS, DEFIBRILLATOR IN PLACE, pilonidal cyst AICD placement Past Family/Social History Family History Relations & Conditions if any FATHER FH: stroke MOTHER FH: heart disease Psychosocial History Who Do You Live With? spouse Primary Language: Greek ETOH Use: denies use Illicit Drug Use: denies illicit drug use Functional Ability ADLs Independent: dressing, eating, toileting, bathing. Ambulation: walker Review of Systems Review of Systems Constitutional: Reports: see HPI. EENTM: Reports: no symptoms. Cardiovascular: Reports: see HPI. Respiratory: Reports: see HPI. GI: Reports: no symptoms. Genitourinary: Reports: see HPI. Musculoskeletal: Reports: see HPI. Skin: Reports: see HPI. Exam & Diagnostic Data Last 24 Hrs of Vital Signs/I&O Vital Signs Date Time Temp Pulse Resp B/P B/P Pulse O2 O2 Flow FiO2 Mean Ox Delivery Rate 10/27 1500 97.0 70 20 116/58 94 Nasal 2.0L Cannula 10/27 1445 55 104/56 10/27 1430 69 20 97/55 96 Nasal 2.0L Cannula 10/27 1420 57 20 115/60 96 Nasal 2.0L Cannula 10/27 1415 97.0 57 20 115/60 10/27 1415 57 20 115/60 96 Nasal 2.0L Cannula 10/27 1232 97.0 70 20 105/61 98 Room Air 10/27 1100 95 Room Air 10/27 1048 96.5 78 18 120/80 91 Room Air Intake & Output 10/27 1600 10/27 0800 10/27 0000 Intake Total Output Total Balance Patient 150 lb Weight Weight Reported by Patient Measurement Method Physical Exam General Appearance Alert, Cooperative, No Acute Distress Skin No Significant Lesion, Few areas of erythema on his back that appear to be heat rash Skin Temp/Moisture Exam: Warm/Dry HEENT EOMI, Mucous Membr. moist/pink Cardiovascular Regular Rate, Normal S1, Normal S2, Grade 3/6 systolic murmur present in all cardiac barboza Lungs Normal Air Movement, DIminshed breath sounds in the basilar regions BL. Inspiratory stridor present in the basilar regions, Decreased breah sounds more prominent in the Right basilar region Abdomen Normal Bowel Sounds, Soft, No Tenderness Neurological Normal Speech, Normal Tone, Sensation Intact Extremities Normal Pulses, 3+ pitting edema BL LE upto the knees BL Vascular Pulses Symmetrical Last 24 Hrs of Labs/Jamar: Laboratory Tests 10/27/16 1357: Lactic Acid Cancelled 10/27/16 1121: Anion Gap 13, Estimated GFR 16 L, BUN/Creatinine Ratio 30.3 H, Glucose 119 H, Lactic Acid 0.9, Calcium 8.9, Total Bilirubin 1.0, AST 48, ALT 56, Alkaline Phosphatase 77, Troponin I 0.06, Rxt-S-Qpzcztvydwe Pept 60878 H, Total Protein 6.7, Albumin 3.8, Globulin 2.9, Albumin/Globulin Ratio 1.3, PT 35.1 H, INR 3.38 H, APTT 40 H, CBC w Diff NO MAN DIFF REQ, RBC 3.46 L, MCV 92.9, MCH 31.0, RDW 15.8 H, MPV 9.0, Gran % 81.6 H, Lymphocytes % 7.5 L, Monocytes % 9.6 H, Eosinophils % 1.1, Basophils % 0.2, Absolute Granulocytes 4.0, Absolute Lymphocytes 0.4 L, Absolute Monocytes 0.5, Absolute Eosinophils 0.1, Absolute Basophils 0, PUBS MCHC 33.4 Diagnostic Data EKG Results Atrial sensed ventricular paced rhythm. HR 72. OK interval 192. QTC 596 CXR Results 1. Cardiomegaly and central vascular congestion without acute interstitial edema. 2. No appreciable change in small right pleural effusion and right basilar opacity/atelectasis. Likely mild atelectasis in retrocardiac region of left lower lobe, as well. No significant, new findings in the chest compared to the prior radiographs. Assessment/Plan Assessment: 89 y/o gentleman with PMH of HFrEF 20-25% (06/08/2016), RVSP 42 mmHg, PPM/ defibrillator, 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 He presents with 2 week duration of increased weight gain 154-161lbs and worsening lower extremity swelling, new onset shortness of breath at rest, 1 episode of hives over his back and chest last night. VS on admission: BP 120/80, HR 78, RR 18, SPO2 91% on 2L NC,, T 96.5 Pertinent labs: WBC 4.9, H&H 10.7/32.1, platelets 130, sodium 138, potassium 4.0 , chloride 102, bicarbonate 24, BUN/CR 112/3.7, glucose 119 INR: 3.38 ProBNP: 25,500 CXR as indicated above Problem list: 1. CHF exacerbation 2. HFrEF 20-25% (06/08/2016), RVSP 42 mmHg 3. PPM/defibrillator, CAD s/p CABG w/ St. Jere valve replacement 4. Acute on Chronic renal failure 5. BPH 6. Hypothyroidism 7. Anemia Plan: * Admit to telemetry for continuous cardiac monitoring * Dr Prado already on board * In the setting of HFrEF 20-25% and acute on chronic renal failure, cardiology recommendations as follows: Starting patient on dobutamine drip 2.50mcg/kg/min for the next 24-48 hours. We'll start the patient on furosemide 80 mg IV daily approximately 30 minutes after the dobutamine drip has been started. Will monitor for blood pressure while on IV Lasix. If the patient does become hypotensive will consult cardiology for possible increase in dobutamine drip * Restart home dose of metoprolol and spironolactone once hemodynamically stable and off dobutamine * Follow-up magnesium and phosphorus. Follow-up repeat chemistries in the a.m. * Episode of hives yesterday may be secondary to uremia in setting of worsening CKD: BUN/CR 112/3.7. Monitor urine output while on diuresis and dobutamine, manuel catheter for strict I&O * Renal ultrasound to assess for evidence of postobstructive uropathy * Will dose Coumadin daily for INR of 2.5-3.5 in the setting of St. Jere's mitral valve * Follow-up repeat iron studies in the setting of chronic anemia * TRC for respiratory support * Continue with finasteride for BPH * Pravastatin 20 mg daily * Heart healthy diet * DVT prophylaxis: Coumadin dosed daily for target INR 2.5-3.5 * CODE STATUS: Full code AM TEAM: * Discussed with cardiology utility of repeat echocardiogram * Contact Dr. Golden to see patient on Saturday As Ranked By This Provider Problem List: 1. CHF exacerbation 2. HFrEF (heart failure with reduced ejection fraction) 3. MITRAL VALVE REPLACEMENT 4. ACUTE RENAL FAILURE 5. BPH (benign prostatic hypertrophy) with urinary retention 6. Hypothyroidism 7. Anemia Core Measures/Miscellaneous Acute Coronary Syndrome ACS Diagnosis: No Cerebrovascular Accident CVA/TIA Diagnosis: No Congestive Heart Failure CHF Diagnosis: Yes Date of most recent Echo: 06/18/16 Last Known EF %: 25 GRAHAM/ARB for EF <40%: No No GRAHAM/ARB d/t: Renal Failure/Azotemia Venous Thromboembolism VTE Risk Factors: Age > 40 No [facility] VTE prophylaxis d/t: No contraindications No VTE Pharm Prophylaxis d/t: No contraindications VTE Diagnosis: No VTE Type: NONE VTE Confirmed by (Test): NONE Severe Sepsis Severe Sepsis Present: No Septic Shock Septic Shock Present: No Miscellaneous Documentation Attending Case Discussed With: JOSH PRADO MD Primary Care Physician: GERA ROBLERO,[facility] Patient sees these Specialists Angela Golden MD (cardiology) Level of Patient Care: Telemetry Resident Review Statement Resident Statement: examined this patient, discussed with r d internship, agreed with r d internship, discussed with family, reviewed EMR data (avail), discussed with nursing , reviewed images JOSH PRADO MD 10/28/16 1405: Attending MD Review Statement Attending Statement Attending MD Statement: examined this patient, discuss w/resident/PA/FRUIT OR NUT PICKER, agreed w/resident/PA/FRUIT OR NUT PICKER, discussed with family, reviewed EMR data (avail), discussed with nursing, reviewed images Attending Assessment/Plan: I have personally seen and examined this patient and discussed the case with the house staff. The patient presents with acute on chronic kidney dysfunction as well as acute fluid overload/congestive heart failure secondary to systolic dysfunction. We have discussed treatment options, and at this time given his worsening renal function will attempt use of IV dobutamine concurrently with diuretics. His renal function as well as electrolytes will be followed closely.
--- NOTE | 2016-10-27 14:15 | NUR ---
DOBUTAMINE DRIP STARTED PER EMAR. 2.5MCG/KG/MIN (10.2ML/HR). VERIFIED WITH PHARMACIST. PT TO HAVE 80MG IVP LASIX 15 MINS AFTER DOBUTAMINE IS STARTED PER HEALTH AND SAFETY ADVISOR DR CALLES.
--- NOTE | 2016-10-27 14:20 | NUR ---
HOUSESTAFF IN FOR EVAL.
--- NOTE | 2016-10-27 14:30 | NUR ---
MEDICATED WITH 80MG IVP LASIX PER EMAR. URINAL AT BEDSIDE.
--- NOTE | 2016-10-27 14:50 | NUR ---
PT STATES HE NEEDS TO HAVE A BM. PT ASSISTED TO COMMODE.
--- NOTE | 2016-10-27 15:20 | NUR ---
REPORT HANDED OFF TO SEDA FERNANDES .
--- NOTE | 2016-10-27 15:26 | NUR ---
ASSUMED PRIMARY CARE OF PT. PT RESTING COMFORTABLY, OFFERS NO COMPLAINTS. VSS. DOBUTAMINE DRIP INFUSING AT 10.2ML/HR
--- NOTE | 2016-10-27 16:00 | NUR ---
US AT BEDSIDE
--- NOTE | 2016-10-27 16:39 | ULTRASOUND REPORT ---
EXAMINATION: US RETROPERITONEAL COMPLETE (RENAL) CLINICAL INFORMATION: Worsening renal function. History of benign prostatic hyperplasia. COMPARISON: Renal ultrasound of 06/08/2016 TECHNIQUE: Real-time imaging of the kidneys and bladder. FINDINGS: RIGHT KIDNEY: 8.5 x 3.9 x 5 cm (SAG x AP x TRV). The renal echotexture is normal. There is chronic, mild atrophy of renal cortex without focal parenchymal lesion. No hydronephrosis or nephrolithiasis. LEFT KIDNEY: 9.9 x 5.1 x 4.3 cm (SAG x AP x TRV). There is chronic, mild atrophy of the renal cortex. The renal cortical echotexture is normal. A cyst with thin septation of the lower pole measures approximately 2.5 x 2.1 x 2.3 cm. This cyst measured up to 2.9 cm on 06/08/2016. BLADDER: Urinary bladder is well distended and has normal wall thickness. Both ureteral jets are seen. IMPRESSION: 1. No acute findings in the kidneys or bladder compared to 06/08/2016. 2. No evidence of nephrolithiasis or urinary tract obstruction. 3. Benign, Bosniak category 2 cyst of the lower pole of the left kidney.
--- NOTE | 2016-10-27 16:52 | NUR ---
PT REQUESTING DIFFERENT LUNCH TRAY PT DID NOT LIKE ORIGINAL THAT CAME. ANOTHER TRAY ORDERED AT THIS TIME. PT RESTING COMFORTABLY. OFFERS NO COMPLAINTS.
--- NOTE | 2016-10-27 17:33 | NUR ---
HOUSE STAFF CALLED REGARDING BURNHAM ORDER (#[id number]). PER HOUSE STAFF MD TORRES NO NEED FOR BURNHAM AT THIS TIME PT IS ABLE TO VOID IN URINAL APPROPRIATELY. DOBUTAMINE INFUSION CONTINUES AT 10.2ML/HR, VSS.
--- NOTE | 2016-10-27 18:37 | NUR ---
PT PROVIDED WITH DINNER TRAY. AWAKE/ALERT WITH EASY WOB. OFFERS NO COMPLAINTS.
--- NOTE | 2016-10-27 18:39 | NUR ---
PT ASSIGNED TO ROOM 177 BED 1
--- NOTE | 2016-10-27 18:49 | NUR ---
REPORT TO WOLF BONILLA ON .
[2016-10-27 19:31] VITALS: BP 120/54
[2016-10-28 00:46] VITALS: BP 124/58
--- NOTE | 2016-10-28 01:13 | NUR ---
PATIENT ARRIVED ON UNIT AT 1930. PLACED ON TELE MONITOR. PACED IN THE 70'S. BP 120/70, 96% ON 2LNC. PATIENT ORIENTED TO ROOM, CALL MANZANO WITHIN REACH. DOBUTAMINE DRIP INFUSING AT 10.2ML/HR, 2.5MC/GK/MIN. AT 1940 PATIENT HAD SUSTAINED RUN OF V-TACH LASTING 47 SECONDS. V-TACH BROKE AND PACED RHYTHM IN THE 70'S RESUMED. PATIENT DENIED CP, BP 114/62. DR. TORRES NOTIFIED AND IN TO ASSESS PATIENT. DOBUTAMINE DRIP DISCONTINUED. WILL CONTINUE TO MONITOR PATIENT.
[2016-10-28 08:08] VITALS: BP 104/64
[2016-10-28 09:12] LABS: ABSOLUTE BASOPHIL COUNT 0 /CUMM (0.0-0.2); ABSOLUTE EOSINOPHIL COUNT 0.1 /CUMM (0.0-0.7); ABSOLUTE GRANULOCYTE CT 4.1 /CUMM (1.4-6.5); ABSOLUTE LYMPH COUNT 0.4 /CUMM (1.2-3.4); ABSOLUTE MONOCYTE COUNT 0.5 /CUMM (0.10-0.60); BASOPHIL % 0.3 % (0.0-2.0); EOSINOPHIL % 1.4 % (0-5); GRANULOCYTE % 80.8 % (42.2-75.2); HEMATOCRIT 30.1 % (42-52); MEAN CORPUSCULAR HGB 31.3 PG (27.0-31.0); MEAN CORPUSCULAR HGB CONC 33.7 G/DL (33.0-37.0); MEAN CORPUSCULAR VOLUME 92.8 FL (80.0-94.0); MEAN PLATELET VOLUME 9.8 FL (7.4-10.4); PLATELET COUNT 104 /CUMM (130-400); RBC DISTRIBUTION WIDTH 15.6 % (11.5-14.5); RED BLOOD CELL CT 3.24 /CUMM (4.70-6.10); WHITE BLOOD CELL COUNT 5.1 /CUMM (4.8-10.8)
--- NOTE | 2016-10-28 09:13 | PN- Housestaff ---
Subjective Follow-up For: chf exacerbation JESSE on CKD Tele-Events Since Last Visit: pacing, 14 sec v tach run, 69-74 Subjective: I have seen and examined the patient. Patient feels better today. Creatinine improved today. patient does not have any chief complaints. Review of Systems Constitutional: Reports: see HPI. Objective Last 24 Hrs of Vital Signs/I&O Vital Signs Date Time Temp Pulse Resp B/P B/P Pulse O2 O2 Flow FiO2 Mean Ox Delivery Rate 10/28 1044 Nasal 2.0L Cannula 10/28 0859 70 104/64 10/28 0808 97.5 78 22 104/64 98 Nasal 3.0L Cannula 10/28 0800 98 Nasal 2.0L Cannula 10/28 0046 97.7 70 20 124/58 94 Nasal Cannula 10/28 0000 96 Nasal 2.0L Cannula 10/27 2000 96 Nasal 2.0L Cannula 10/27 1931 97.6 69 20 120/54 98 Nasal 2.0L Cannula 10/27 1822 97.4 72 18 115/65 98 Nasal 2.0L Cannula 10/27 1715 66 16 109/60 99 Nasal 2.0L Cannula 10/27 1615 97.0 70 16 106/61 97 Nasal 2.0L Cannula 10/27 1526 97.0 61 20 101/62 04 1515 61 20 101/62 94 Nasal 2.0L Cannula 10/27 1500 97.0 70 20 116/58 94 Nasal 2.0L Cannula 10/27 1445 55 104/56 Intake & Output 10/28 1600 10/28 0800 10/28 0000 Intake Total 360 200 Output Total 1950 1075 Balance -1590 -875 Intake, Oral 360 200 Output, Urine 1950 1075 Patient 153 lb Weight Weight Chair scale Measurement Method Physical Exam General Appearance: Alert, Oriented X3, Cooperative Cardiovascular: Normal S1, Normal S2 Lungs: Normal Air Movement Abdomen: Normal Bowel Sounds, No Tenderness Extremities: No Clubbing, No Cyanosis, bilateral +2 edema Assessment/Plan Assessment: 89 y/o gentleman with PMH of HFrEF 20-25% (06/08/2016), RVSP 42 mmHg, PPM/ defibrillator, 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 He presents with 2 week duration of increased weight gain 154-161lbs and worsening lower extremity swelling, new onset shortness of breath at rest, 1 episode of hives over his back and chest last night. VS on admission: BP 120/80, HR 78, RR 18, SPO2 91% on 2L NC,, T 96.5 Pertinent labs: WBC 4.9, H&H 10.7/32.1, platelets 130, sodium 138, potassium 4.0 , chloride 102, bicarbonate 24, BUN/CR 112/3.7, glucose 119 INR: 3.38 ProBNP: 25,500 CXR as indicated above Assessment and plan 1. CHF exacerbation/ HFrEF 20-25% (06/08/2016), RVSP 42 mmHg -Patient was put on to dobutmine drip, however he developed episodes of V. tach and dobutamine drip stopped. perdiscussion with Dr. GAFFNEY we restarted dobutamine on low-dose the if patient developed another episode of V. tach with transfer him to ICU and put him on milrinone drip -Hold antihypertensive medications for now 2. PPM/defibrillator, CAD s/p CABG w/ St. Jere valve replacement -INR is 3.34 revealed a total milligram of warfarin today -Continue amiodarone 4. Acute on Chronic renal failure cr is 3.2 which is better today. Continue to monitor 5. BPH Continue finasteride 7. Anemia stable H&H Full code, heart healthy diet, DVT prophylaxis is warfarin Problem List: 1. ACUTE RENAL FAILURE Pain Ratin Pain Location: sung pain Pain Goal: Pain 4 or less Pain Plan: same Tomorrow's Labs & Rationales: cbc bep
[2016-10-28 12:15] LABS: PT 34.7 SEC (9.4-12.5)
--- NOTE | 2016-10-28 14:14 | PN- Cardiology ---
Subjective Subjective: The patient is awake, alert Overall feels improved The patient had an almost 2.5 L net output since admission The events of the last 24 hours as well as telemetry were reviewed. Review of Systems: The review of systems is negative for chest pains, palpitations nor lightheadedness. The remainder of the 14 point review of systems is noncontributory with the exception of above. Objective Vital Signs and I&Os Vital Signs Date Time Temp Pulse Resp B/P B/P Pulse O2 O2 Flow FiO2 Mean Ox Delivery Rate 10/28 1044 Nasal 2.0L Cannula 10/28 0859 70 104/64 10/28 0808 97.5 78 22 104/64 98 Nasal 3.0L Cannula 10/28 0800 98 Nasal 2.0L Cannula 10/28 0046 97.7 70 20 124/58 94 Nasal Cannula 10/28 0000 96 Nasal 2.0L Cannula 10/27 2000 96 Nasal 2.0L Cannula 10/27 1931 97.6 69 20 120/54 98 Nasal 2.0L Cannula 10/27 1822 97.4 72 18 115/65 98 Nasal 2.0L Cannula 10/27 1715 66 16 109/60 99 Nasal 2.0L Cannula 10/27 1615 97.0 70 16 106/61 97 Nasal 2.0L Cannula 10/27 1526 97.0 61 20 101/62 10/27 1515 61 20 101/62 94 Nasal 2.0L Cannula 10/27 1500 97.0 70 20 116/58 94 Nasal 2.0L Cannula 10/27 1445 55 104/56 10/27 1430 69 20 97/55 96 Nasal 2.0L Cannula 10/27 1420 57 20 115/60 96 Nasal 2.0L Cannula 10/27 1415 97.0 57 20 115/60 10/27 1415 57 20 115/60 96 Nasal 2.0L Cannula Intake & Output 10/28 1600 10/28 0800 10/28 0000 10/27 1600 10/27 0800 10/27 0000 Intake Total 360 200 Output Total 1950 1075 Balance -1590 -875 Intake, Oral 360 200 Output, Urine 1950 1075 Patient 153 lb 150 lb Weight Weight Chair scale Reported by Patient Measurement Method Physical Exam: General: Nontoxic, no apparent distress. HEENT: Sclera and conjunctiva within normal limits, without xanthelasmas. Neck: Carotids 2+ without bruits. Respiratory: Scattered rhonchi, air movement is decreased at bases, without accessory respiratory muscle use. Heart: Regular rate and rhythm, without murmurs, without JVD. Abdomen: Soft, nontender, no masses, normoactive bowel sounds. Extremities: Without clubbing, cyanosis, without edema. Neuro: Nonfocal exam, strength, 5 out of 5 Skin: Within normal limits without lesions. Psych: Mood and affect: Normal Current Medications: Current Medications Sig/Yordy Start time Last Medication Dose Route Stop Time Status Admin Acetaminophen 650 MG Q6P PRN 10/27 1515 AC PO Amiodarone HCl 100 MG Q48H 10/28 1000 AC 10/28 PO 0859 Amiodarone HCl 200 MG Q48H 10/27 1430 AC 10/27 PO 1526 Benzocaine/Menthol 1 ALVARO Q2P PRN 10/28 1100 AC PO Dobutamine HCl 250 MG Q24H 10/28 1345 UNVr Dextrose/Water 250 ML IV Dobutamine HCl 250 MG ONCE ONE 10/27 1345 AC 10/27 Dextrose/Water 250 ML IV 10/28 1413 1415 Finasteride 5 MG DAILY 10/28 1000 AC 10/28 PO 0859 Furosemide 0 .STK-MED ONE 10/27 1432 DC IV Levothyroxine Sodium 0.025 MG DAILY AC 10/27 1428 AC 10/28 PO 0615 Non-Formulary 0 SEE ADMIN CRITERIA 10/28 1145 DC Medication ANY Oxycodone/ 1 TAB Q6P PRN 10/27 1515 AC Acetaminophen PO Oxycodone/ 2 TAB Q6P PRN 10/27 1515 AC Acetaminophen PO Potassium Chloride 40 MEQ ONCE ONE 10/28 1115 DC 10/28 PO 10/28 1116 1327 Pravastatin Sodium 20 MG DAILY 10/27 1429 AC 10/28 PO 0859 Warfarin Sodium 2 MG COUMADIN 1700 ONE 10/27 1945 DC 10/27 PO 10/27 1940 Results Last 48 Hrs of Labs/Mics: Laboratory Tests 10/28/16 1030: PT 34.7 H, INR 3.34 H 10/28/16 0800: Anion Gap 12, Estimated GFR 18 L, BUN/Creatinine Ratio 29.4 H, Phosphorus 4.8 H, Magnesium 2.3, CBC w Diff NO MAN DIFF REQ, RBC 3.24 L, MCV 92.8, MCH 31.3 H , RDW 15.6 H, MPV 9.8, Gran % 80.8 H, Lymphocytes % 8.5 L, Monocytes % 9.0, Eosinophils % 1.4, Basophils % 0.3, Absolute Granulocytes 4.1, Absolute Lymphocytes 0.4 L, Absolute Monocytes 0.5, Absolute Eosinophils 0.1, Absolute Basophils 0, PUBS MCHC 33.7 10/27/16 1357: Lactic Acid Cancelled 10/27/16 1121: Anion Gap 13, Estimated GFR 16 L, BUN/Creatinine Ratio 30.3 H, Glucose 119 H, Lactic Acid 0.9, Calcium 8.9, Phosphorus 5.9 H, Magnesium 2.5 H, Iron 50, TIBC 386, Ferritin 63.6, Total Bilirubin 1.0, AST 48, ALT 56, Alkaline Phosphatase 77 , Troponin I 0.06, Gwa-I-Walrzsfbmpo Pept 11251 H, Total Protein 6.7, Albumin 3.8, Globulin 2.9, Albumin/Globulin Ratio 1.3, PT 35.1 H, INR 3.38 H, APTT 40 H, CBC w Diff NO MAN DIFF REQ, RBC 3.46 L, MCV 92.9, MCH 31.0, RDW 15.8 H, MPV 9.0, Gran % 81.6 H, Lymphocytes % 7.5 L, Monocytes % 9.6 H, Eosinophils % 1.1 , Basophils % 0.2, Absolute Granulocytes 4.0, Absolute Lymphocytes 0.4 L, Absolute Monocytes 0.5, Absolute Eosinophils 0.1, Absolute Basophils 0, PUBS MCHC 33.4 Assessment/Plan Assessment/Plan 89 y/o gentleman with PMH of HFrEF 20-25% (06/08/2016), RVSP 42 mmHg, PPM/ defibrillator, CAD s/p CABG w/ St. Jere valve replacement currently on Coumadin, hypothyroidism, chronic renal failure, BPH who was recently admitted in September 2016 for lower extremity swelling/CHF exacerbation. He presents with 2 week duration of increased weight gain and worsening lower extremity swelling, dyspnea as well as acute on chronic kidney injury. The patient demonstrated a good response to IV dobutamine as well as diuresis with IV Lasix (80 mg); however, had runs of nonsustained ventricular tachycardia. We will attempt to switch his dobutamine to milrinone; however, this is not available at this hospital at this time. As he is overall shown improvement, we will restart dobutamine at 2.5 and follow. If ventricular tachycardia redevelops is not at goal in regards to his fluid status, milrinone will be obtained from an outside hospital. We will attempt to continue diuresis with Lasix 80 mg IV Continue telemetry? Yes
[2016-10-28 15:41] VITALS: BP 110/62
[2016-10-28 18:00] VITALS: BP 100/50
--- NOTE | 2016-10-28 19:00 | NUR ---
NURSING NOTE; DOBUTMINE GTT STARTED AT 1625. INFUSING AT 10.4 ML/HR (2.5 MCG/KG/HR) PT TOLERATING WELL. PACING IN THE 70'S. NO ECTOPY. BP STABLE.
[2016-10-28 19:17] VITALS: BP 112/50
[2016-10-29 00:07] VITALS: BP 110/46
--- NOTE | 2016-10-29 07:28 | PN- Housestaff ---
Subjective Follow-up For: CHF exacerbation Complaints: no complaints Tele-Events Since Last Visit: Single pacing Rate 71-78. No acute events noticed on monitor Subjective: She was seen and examined this morning. He is alert awake and oriented to time place and person. No acute events happened overnight. He denies any chest pain, racing of heart, difficulty breathing, leg swelling. Denies any headache, nausea, vomiting, change in bladder or bowel habits. Vitals stable. Afebrile. Heart rate 68 respiratory 20, blood pressure 110/90 saturating at 95% on 2 L. Review of Systems Constitutional: Denies: see HPI. Objective Last 24 Hrs of Vital Signs/I&O Vital Signs Date Time Temp Pulse Resp B/P B/P Pulse O2 O2 Flow FiO2 Mean Ox Delivery Rate 10/29 1416 122/60 10/29 0918 97 Nasal 2.0L Cannula 10/29 0811 95 Nasal 2.0L Cannula 10/29 0800 97.9 68 20 110/68 97 Nasal 2.0L Cannula 10/29 0007 98.5 68 20 110/46 95 Nasal 2.0L Cannula 10/29 0000 94 Nasal 2.0L Cannula 10/28 1917 76 112/50 10/28 1800 71 100/50 10/28 1721 98 Nasal 2.0L Cannula 10/28 1626 69 110/62 Intake & Output 10/29 1600 10/29 0800 10/29 0000 Intake Total 490 400 880 Output Total 850 1500 1475 Balance -360 -1100 -595 Intake, IV 90 Intake, Oral 400 400 880 Output, Urine 850 1500 1475 Patient 66.905 kg 66.905 kg Weight Weight Standing Scale Measurement Method Physical Exam General Appearance: Alert, Oriented X3, Cooperative, No Acute Distress Skin: maculopapular rash on back , armpits HEENT: Atraumatic, PERRLA, EOMI Neck: Supple, No JVD Cardiovascular: Normal S1, Normal S2, No Murmurs Lungs: Normal Air Movement Abdomen: Normal Bowel Sounds, Soft Neurological: Strength at 5/5 X4 Ext Extremities: No Clubbing, No Cyanosis, +2 edema Vascular: Normal Pulses, Pulses Symmetrical Current Medications: Current Medications Sig/Yordy Start time Last Medication Dose Route Stop Time Status Admin Acetaminophen 650 MG Q6P PRN 10/27 1515 AC PO Albuterol Sulfate 3 ML Q4P PRN 10/28 1900 AC 10/29 INH 0918 Amiodarone HCl 100 MG Q48H 10/28 1000 AC 10/28 PO 0859 Amiodarone HCl 200 MG Q48H 10/27 1430 AC 10/27 PO 1526 Benzocaine/Menthol 1 ALVARO Q2P PRN 10/28 1100 AC PO Dobutamine HCl 250 MG Q24H 10/28 1345 AC 10/29 Dextrose/Water 250 ML IV 1416 Finasteride 5 MG DAILY 10/28 1000 AC 10/29 PO 0901 Furosemide 80 MG 0800 & 1700 10/29 1000 AC 10/29 IV 1030 Furosemide 80 MG ONCE ONE 10/28 1615 DC 10/28 IV 10/28 1616 1812 Levothyroxine Sodium 0.025 MG DAILY AC 10/27 1428 AC 10/29 PO 0555 Oxycodone/ 1 TAB Q6P PRN 10/27 1515 AC Acetaminophen PO Oxycodone/ 2 TAB Q6P PRN 10/27 1515 AC Acetaminophen PO Pravastatin Sodium 20 MG DAILY 10/27 1429 AC 10/29 PO 0901 Warfarin Sodium 2 MG COUMADIN 1700 ONE 10/29 1700 AC PO 10/29 1701 Warfarin Sodium 2 MG COUMADIN 1700 ONE 10/28 1700 DC 10/28 PO 10/28 1701 1804 Last 24 Hrs of Lab/Jamar Results Last 24 Hrs of Labs/Mics: Laboratory Tests 10/29/16 0640: Anion Gap 11, Estimated GFR 21 L, BUN/Creatinine Ratio 27.9 H, PT 31.7 H, INR 3.05 H, CBC w Diff NO MAN DIFF REQ, RBC 3.24 L, MCV 93.1, MCH 30.9, RDW 16.1 H, MPV 9.2, Gran % 82.1 H, Lymphocytes % 7.5 L, Monocytes % 9.4 H, Eosinophils % 0.7, Basophils % 0.3, Absolute Granulocytes 4.9, Absolute Lymphocytes 0.4 L, Absolute Monocytes 0.6, Absolute Eosinophils 0, Absolute Basophils 0, PUBS MCHC 33.2 Assessment/Plan Assessment: 89 y/o gentleman with PMH of HFrEF 20-25% (06/08/2016), RVSP 42 mmHg, PPM/ defibrillator, 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 He presents with 2 week duration of increased weight gain 154-161lbs and worsening lower extremity swelling, new onset shortness of breath at rest, 1 episode of hives over his back and chest last night. VS on admission: BP 120/80, HR 78, RR 18, SPO2 91% on 2L NC,, T 96.5 Pertinent labs: WBC 4.9, H&H 10.7/32.1, platelets 130, sodium 138, potassium 4.0 , chloride 102, bicarbonate 24, BUN/CR 112/3.7, glucose 119 INR: 3.38 ProBNP: 25,500 CXR as indicated above Assessment and plan 1. CHF exacerbation/ HFrEF 20-25% (06/08/2016), RVSP 42 mmHg -Patient was put on to dobutmine drip, however he developed episodes of V. tach and dobutamine drip stopped. perdiscussion with Dr. Augustin we restarted dobutamine on low-dose the if patient developed another episode of V. tach with transfer him to ICU and put him on milrinone drip -Hold antihypertensive medications for now 2. 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 Acute on Chronic renal failure cr is 2.8 which is better today. Continue to monitor 5. BPH Continue finasteride 7. Anemia stable H&H Full code, heart healthy diet, DVT prophylaxis is warfarin Problem List: 1. Supratherapeutic INR 2. Acute on chronic renal insufficiency 3. CHF exacerbation Pain Ratin Pain Location: none Pain Goal: Remain pain free Pain Plan: n/a Tomorrow's Labs & Rationales: CBC in the setting of anemia BEP in the setting of worsening creatinine INR in the setting of supratherapeutic INR and to dose Coumadin
[2016-10-29 08:00] VITALS: BP 110/68
[2016-10-29 08:01] LABS: ABSOLUTE BASOPHIL COUNT 0 /CUMM (0.0-0.2); ABSOLUTE EOSINOPHIL COUNT 0 /CUMM (0.0-0.7); ABSOLUTE GRANULOCYTE CT 4.9 /CUMM (1.4-6.5); ABSOLUTE LYMPH COUNT 0.4 /CUMM (1.2-3.4); ABSOLUTE MONOCYTE COUNT 0.6 /CUMM (0.10-0.60); BASOPHIL % 0.3 % (0.0-2.0); EOSINOPHIL % 0.7 % (0-5); GRANULOCYTE % 82.1 % (42.2-75.2); HEMATOCRIT 30.1 % (42-52); MEAN CORPUSCULAR HGB 30.9 PG (27.0-31.0); MEAN CORPUSCULAR HGB CONC 33.2 G/DL (33.0-37.0); MEAN CORPUSCULAR VOLUME 93.1 FL (80.0-94.0); MEAN PLATELET VOLUME 9.2 FL (7.4-10.4); PLATELET COUNT 102 /CUMM (130-400); RBC DISTRIBUTION WIDTH 16.1 % (11.5-14.5); RED BLOOD CELL CT 3.24 /CUMM (4.70-6.10); WHITE BLOOD CELL COUNT 5.9 /CUMM (4.8-10.8)
[2016-10-29 08:25] LABS: PT 31.7 SEC (9.4-12.5)
--- NOTE | 2016-10-29 09:13 | PN- Cardiology ---
Subjective Subjective: The patient is awake and alert. He continues to complain of significant shortness of breath. No chest pain. No palpitations. No lightheadedness or dizziness. Telemetry monitoring reveals intermittent short runs of nonsustained atrial tachycardia. Objective Vital Signs and I&Os Vital Signs Date Time Temp Pulse Resp B/P B/P Pulse O2 O2 Flow FiO2 Mean Ox Delivery Rate 10/29 0811 95 Nasal 2.0L Cannula 10/29 0800 97.9 68 20 110/68 97 Nasal 2.0L Cannula 10/29 0007 98.5 68 20 110/46 95 Nasal 2.0L Cannula 10/29 0000 94 Nasal 2.0L Cannula 10/28 1917 76 112/50 10/28 1800 71 100/50 10/28 1721 98 Nasal 2.0L Cannula 10/28 1626 69 110/62 10/28 1600 98 Nasal 2.0L Cannula 10/28 1541 98.0 67 20 110/62 98 Nasal 2.0L Cannula 10/28 1044 Nasal 2.0L Cannula Intake & Output 10/29 1600 10/29 0800 10/29 0000 10/28 1600 10/28 0800 10/28 0000 Intake Total 400 880 520 360 200 Output Total 1500 8032 180 5108 1075 Balance -1100 -595 -230 -1590 -875 Intake, Oral 400 880 520 360 200 Number 0 Bowel Movements Output, Urine 1500 2942 717 5646 1075 Patient 148 lb 153 lb Weight Weight Standing Scale Chair scale Measurement Method Physical Exam: Gen: NAD HEENT: normal Lungs: Rales in the bases bilaterally Heart: RRR, mechanical mitral valve sounds ,1/6 systolic murmur Abdomen: Soft, nontender, no masses Extremities: 2+ edema Neuro: Alert and oriented x 3, cranial nerves intact Current Medications: Current Medications Sig/Yordy Start time Last Medication Dose Route Stop Time Status Admin Acetaminophen 650 MG Q6P PRN 10/27 1515 AC PO Albuterol Sulfate 3 ML Q4P PRN 10/28 1900 AC 10/28 INH 2215 Amiodarone HCl 100 MG Q48H 10/28 1000 AC 10/28 PO 0859 Amiodarone HCl 200 MG Q48H 10/27 1430 AC 10/27 PO 1526 Benzocaine/Menthol 1 ALVARO Q2P PRN 10/28 1100 AC PO Dobutamine HCl 250 MG Q24H 10/28 1345 AC 10/28 Dextrose/Water 250 ML IV 1626 Dobutamine HCl 250 MG ONCE ONE 10/27 1345 DC 10/27 Dextrose/Water 250 ML IV 10/28 1413 1415 Finasteride 5 MG DAILY 10/28 1000 AC 10/28 PO 0859 Furosemide 80 MG ONCE ONE 10/28 1615 DC 10/28 IV 10/28 1616 1812 Levothyroxine Sodium 0.025 MG DAILY AC 10/27 1428 AC 10/29 PO 0555 Non-Formulary 0 SEE ADMIN CRITERIA 10/28 1145 DC Medication ANY Oxycodone/ 1 TAB Q6P PRN 10/27 1515 AC Acetaminophen PO Oxycodone/ 2 TAB Q6P PRN 10/27 1515 AC Acetaminophen PO Potassium Chloride 40 MEQ ONCE ONE 10/28 1115 DC 10/28 PO 10/28 1116 1327 Pravastatin Sodium 20 MG DAILY 10/27 1429 AC 10/28 PO 0859 Warfarin Sodium 2 MG COUMADIN 1700 ONE 10/28 1700 DC 10/28 PO 10/28 1701 1804 Results Last 48 Hrs of Labs/Mics: Laboratory Tests 10/29/16 0640: Anion Gap 11, Estimated GFR 21 L, BUN/Creatinine Ratio 27.9 H, PT 31.7 H, INR 3.05 H, CBC w Diff NO MAN DIFF REQ, RBC 3.24 L, MCV 93.1, MCH 30.9, RDW 16.1 H, MPV 9.2, Gran % 82.1 H, Lymphocytes % 7.5 L, Monocytes % 9.4 H, Eosinophils % 0.7, Basophils % 0.3, Absolute Granulocytes 4.9, Absolute Lymphocytes 0.4 L, Absolute Monocytes 0.6, Absolute Eosinophils 0, Absolute Basophils 0, PUBS MCHC 33.2 10/28/16 1030: PT 34.7 H, INR 3.34 H 10/28/16 0800: Anion Gap 12, Estimated GFR 18 L, BUN/Creatinine Ratio 29.4 H, Phosphorus 4.8 H, Magnesium 2.3, CBC w Diff NO MAN DIFF REQ, RBC 3.24 L, MCV 92.8, MCH 31.3 H , RDW 15.6 H, MPV 9.8, Gran % 80.8 H, Lymphocytes % 8.5 L, Monocytes % 9.0, Eosinophils % 1.4, Basophils % 0.3, Absolute Granulocytes 4.1, Absolute Lymphocytes 0.4 L, Absolute Monocytes 0.5, Absolute Eosinophils 0.1, Absolute Basophils 0, PUBS MCHC 33.7 10/27/16 1357: Lactic Acid Cancelled 10/27/16 1121: Anion Gap 13, Estimated GFR 16 L, BUN/Creatinine Ratio 30.3 H, Glucose 119 H, Lactic Acid 0.9, Calcium 8.9, Phosphorus 5.9 H, Magnesium 2.5 H, Iron 50, TIBC 386, Ferritin 63.6, Total Bilirubin 1.0, AST 48, ALT 56, Alkaline Phosphatase 77 , Troponin I 0.06, Bty-W-Odmrsodawra Pept 64265 H, Total Protein 6.7, Albumin 3.8, Globulin 2.9, Albumin/Globulin Ratio 1.3, PT 35.1 H, INR 3.38 H, APTT 40 H, CBC w Diff NO MAN DIFF REQ, RBC 3.46 L, MCV 92.9, MCH 31.0, RDW 15.8 H, MPV 9.0, Gran % 81.6 H, Lymphocytes % 7.5 L, Monocytes % 9.6 H, Eosinophils % 1.1 , Basophils % 0.2, Absolute Granulocytes 4.0, Absolute Lymphocytes 0.4 L, Absolute Monocytes 0.5, Absolute Eosinophils 0.1, Absolute Basophils 0, PUBS MCHC 33.4 Assessment/Plan Assessment/Plan Assessment: 1. CAD, status post CABG 2. Implanted defibrillator 3. Mechanical mitral valve 4. Acute on chronic heart failure with reduced ejection fraction 5. Acute on chronic kidney disease, improving 6. Nonsustained ventricular tachycardia Plan: * Lasix 80 mg IV every 12 hours * Follow input and output with daily weights * Check basic metabolic profile daily * Continue IV dobutamine * Dose warfarin for INR 2.5-3.5 Continue telemetry? Yes
--- NOTE | 2016-10-29 11:14 | PN- Student ---
Subjective Subjective: This morning Mr. Guadalupe was complaining of small erythematous rashes on his back and arms, which he said are not painful. He has no complaints of chest pain or abdominal pain but did state that he had intermittent episodes of dyspnea that quickly resolve on there own. Objective Objective: Vital Signs Date Time Temp Pulse Resp B/P B/P Pulse O2 O2 Flow FiO2 Mean Ox Delivery Rate 10/29 0918 97 Nasal 2.0L Cannula 10/29 0811 95 Nasal 2.0L Cannula 10/29 0800 97.9 68 20 110/68 97 Nasal 2.0L Cannula 10/29 0007 98.5 68 20 110/46 95 Nasal 2.0L Cannula 10/29 0000 94 Nasal 2.0L Cannula 10/28 1917 76 112/50 10/28 1800 71 100/50 10/28 1721 98 Nasal 2.0L Cannula 10/28 1626 69 110/62 10/28 1600 98 Nasal 2.0L Cannula 10/28 1541 98.0 67 20 110/62 98 Nasal 2.0L Cannula Intake & Output 10/29 1600 10/29 0800 10/29 0000 Intake Total 400 880 Output Total 1500 1475 Balance -1100 -595 Intake, Oral 400 880 Output, Urine 1500 1475 Patient 148 lb Weight Weight Standing Scale Measurement Method Telemetry: single pacing 71-78 w/ no events PE: Appearance- alert and oriented x 3, no distress noted, Mental state seems good. HEENT- atraumatic, [place], mucus membranes moist and pink Neck- no thyromegaly, no lymphadenopathy, no JVD, trachea was midline CV- S1 and S2 heard no murmurs rubs or gallops. normal rate and rhythm Chest- Breath sounds slightly reduced. Abd- slight tenderness to palpation in all quadrants. Hasnt had a bowel movement since admission, may benefit from stool softener. Bowel sounds heard, no distention noted. Skin- erythematous noted on back and both forearms, no sores found. skin is well perfused, warm, and dry. Ext.- 5/5 strength in all extremities, no pedal edema noted, dorsal pedal pulses present bilaterally. Results Results: Laboratory Tests 10/29/16 0640: Anion Gap 11, Estimated GFR 21 L, BUN/Creatinine Ratio 27.9 H, PT 31.7 H, INR 3.05 H, CBC w Diff NO MAN DIFF REQ, RBC 3.24 L, MCV 93.1, MCH 30.9, RDW 16.1 H, MPV 9.2, Gran % 82.1 H, Lymphocytes % 7.5 L, Monocytes % 9.4 H, Eosinophils % 0.7, Basophils % 0.3, Absolute Granulocytes 4.9, Absolute Lymphocytes 0.4 L, Absolute Monocytes 0.6, Absolute Eosinophils 0, Absolute Basophils 0, PUBS MCHC 33.2 10/28/16 1030: PT 34.7 H, INR 3.34 H 10/28/16 0800: Anion Gap 12, Estimated GFR 18 L, BUN/Creatinine Ratio 29.4 H, Phosphorus 4.8 H, Magnesium 2.3, CBC w Diff NO MAN DIFF REQ, RBC 3.24 L, MCV 92.8, MCH 31.3 H , RDW 15.6 H, MPV 9.8, Gran % 80.8 H, Lymphocytes % 8.5 L, Monocytes % 9.0, Eosinophils % 1.4, Basophils % 0.3, Absolute Granulocytes 4.1, Absolute Lymphocytes 0.4 L, Absolute Monocytes 0.5, Absolute Eosinophils 0.1, Absolute Basophils 0, PUBS MCHC 33.7 10/27/16 1357: Lactic Acid Cancelled 10/27/16 1121: Anion Gap 13, Estimated GFR 16 L, BUN/Creatinine Ratio 30.3 H, Glucose 119 H, Lactic Acid 0.9, Calcium 8.9, Phosphorus 5.9 H, Magnesium 2.5 H, Iron 50, TIBC 386, Ferritin 63.6, Total Bilirubin 1.0, AST 48, ALT 56, Alkaline Phosphatase 77 , Troponin I 0.06, Vba-M-Eslwayczeqd Pept 94103 H, Total Protein 6.7, Albumin 3.8, Globulin 2.9, Albumin/Globulin Ratio 1.3, PT 35.1 H, INR 3.38 H, APTT 40 H, CBC w Diff NO MAN DIFF REQ, RBC 3.46 L, MCV 92.9, MCH 31.0, RDW 15.8 H, MPV 9.0, Gran % 81.6 H, Lymphocytes % 7.5 L, Monocytes % 9.6 H, Eosinophils % 1.1 , Basophils % 0.2, Absolute Granulocytes 4.0, Absolute Lymphocytes 0.4 L, Absolute Monocytes 0.5, Absolute Eosinophils 0.1, Absolute Basophils 0, PUBS MCHC 33.4 Assessment/Plan Assessment: 89 y/o gentleman with PMH of HFrEF 20-25% (06/08/2016), RVSP 42 mmHg, PPM/ defibrillator, 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 He presents with 2 week duration of increased weight gain 154-161lbs and worsening lower extremity swelling, new onset shortness of breath at rest, 1 episode of hives over his back and chest last night that are still present today. Overall he seems to be feeling much better. He did have a bit of a cough today that was not productive. He does have a rash on his hands and back which do not appear to be painful. His leg swelling is greatly improved with no discernable edema present, he is diuresing well. He is complaining of some diffuse tenderness of his abdomen which i suspect to be related to constipation as he has not had a bowel movement since his admission. Current Medications Sig/Yordy Start time Last Medication Dose Route Stop Time Status Admin Acetaminophen 650 MG Q6P PRN 10/27 1515 AC PO Albuterol Sulfate 3 ML Q4P PRN 10/28 1900 AC 10/29 INH 0918 Amiodarone HCl 100 MG Q48H 10/28 1000 AC 10/28 PO 0859 Amiodarone HCl 200 MG Q48H 10/27 1430 AC 10/27 PO 1526 Benzocaine/Menthol 1 ALVARO Q2P PRN 10/28 1100 AC PO Dobutamine HCl 250 MG Q24H 10/28 1345 AC 10/28 Dextrose/Water 250 ML IV 1626 Dobutamine HCl 250 MG ONCE ONE 10/27 1345 DC 10/27 Dextrose/Water 250 ML IV 10/28 1413 1415 Finasteride 5 MG DAILY 10/28 1000 AC 10/29 PO 0901 Furosemide 80 MG 0800 & 1700 10/29 1000 AC 10/29 IV 1030 Furosemide 80 MG ONCE ONE 10/28 1615 DC 10/28 IV 10/28 1616 1812 Levothyroxine Sodium 0.025 MG DAILY AC 10/27 1428 AC 10/29 PO 0555 Non-Formulary 0 SEE ADMIN CRITERIA 10/28 1145 DC Medication ANY Oxycodone/ 1 TAB Q6P PRN 10/27 1515 AC Acetaminophen PO Oxycodone/ 2 TAB Q6P PRN 10/27 1515 AC Acetaminophen PO Pravastatin Sodium 20 MG DAILY 10/27 1429 AC 10/29 PO 0901 Warfarin Sodium 2 MG COUMADIN 1700 ONE 10/29 1700 AC PO 10/29 1701 Warfarin Sodium 2 MG COUMADIN 1700 ONE 10/28 1700 DC 10/28 PO 10/28 1701 1804 Plan: Problem list: 1. CHF exacerbation/ HFrEF 20-25% (06/08/2016), RVSP 42 mmHg -Patient was put on to dobutmine drip, however he developed episodes of V. tach and dobutamine drip stopped. perdiscussion with DrVinicio ON we restarted dobutamine on low-dose the if patient developed another episode of V. tach with transfer him to ICU and put him on milrinone drip -Hold antihypertensive medications for now 2. 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 Acute on Chronic renal failure cr is 2.8 which is better today. Continue to monitor 5. BPH Continue finasteride 7. Anemia stable H&H Full code, heart healthy diet, DVT prophylaxis is warfarin
--- NOTE | 2016-10-29 14:33 | NUR ---
wound care: pt referred by nursing staff for evaluation of skin alteration PRESENT ON ADMISSION to coccyx - pt known to this medical underwriter from previous admission - present at chairside offered hx - pt observed standing with PT - coccyx STAGE 2 PRESSURE INJURY 0.3 x 0.4 cm shallow open crater with pink dermal fill - no undermining or tunneling noted - scant serous drng - reports wound has stalled without evidence of improvement of deterioration over past few weeks - reports offloading at home "as best as he could" recommedation: cleanse coccyx with ns promogran dressing and dpd q 3 days and prn - cont with size stacy mattress - if failure to improve, consider chemical cauterization to wound edges with silver nitrate - fyi promogram avaiable at wound center - nutrition consult please
[2016-10-29 16:13] VITALS: BP 112/60
[2016-10-29 23:58] VITALS: BP 94/58
--- NOTE | 2016-10-30 07:14 | PN- Housestaff ---
Subjective Follow-up For: CHF exacerbation Complaints: no complaints Tele-Events Since Last Visit: Single patient, heart rate 69-80. Subjective: I followed up and examined the patient today. He is resting comfortably in his recliner with his bilateral lower extremity elevated, has additional oxygen via nasal cannula, but does not offer any complaints, vital signs stable, edema has reduced, rashes over the back previously noted has reduced, no overnight event. Review of Systems Constitutional: Reports: no symptoms. Objective Last 24 Hrs of Vital Signs/I&O Vital Signs Date Time Temp Pulse Resp B/P B/P Pulse O2 O2 Flow FiO2 Mean Ox Delivery Rate 10/30 1145 95 Nasal 2.0L Cannula 10/30 0929 74 110/60 10/30 0929 74 110/60 10/30 0800 96 Nasal 2.0L Cannula 10/30 0800 98.3 86 20 110/60 98 Nasal 2.0L Cannula 10/30 0000 95 Nasal 2.0L Cannula 10/29 2358 98.0 69 20 94/58 96 Nasal Cannula 10/29 2159 96 Nasal 2.0L Cannula 10/29 1621 72 108/60 10/29 1613 97.1 68 20 112/60 100 Nasal 3.5L Cannula 10/29 1600 Nasal Cannula 10/29 1416 122/60 Intake & Output 10/30 1600 10/30 0800 10/30 0000 Intake Total 283.2 683.2 Output Total 1200 2100 Balance -916.8 -1416.8 Intake, IV 83.2 83.2 Intake, Oral 200 600 Output, Urine 1200 2100 Patient 65.828 kg Weight Weight Chair scale Measurement Method Physical Exam General Appearance: Alert, Oriented X3, Cooperative, No Acute Distress Other Physical Findings: Skin: maculopapular rash on back , armpits HEENT: Atraumatic, PERRLA, EOMI Neck: Supple, No JVD Cardiovascular: Normal S1, Normal S2, No Murmurs Lungs: Normal Air Movement Abdomen: Normal Bowel Sounds, Soft Neurological: Strength at 5/5 X4 Ext Extremities: No Clubbing, No Cyanosis, +2 edema Vascular: Normal Pulses, Pulses Symmetrical Current Medications: Current Medications Sig/Yordy Start time Last Medication Dose Route Stop Time Status Admin Acetaminophen 650 MG Q6P PRN 10/27 1515 AC PO Albuterol Sulfate 3 ML Q4P PRN 10/28 1900 AC 10/29 INH 0918 Amiodarone HCl 100 MG Q48H 10/28 1000 AC 10/30 PO 0929 Amiodarone HCl 200 MG Q48H 10/27 1430 AC 10/29 PO 1621 Benzocaine/Menthol 1 ALVARO Q2P PRN 10/28 1100 AC PO Dobutamine HCl 250 MG Q24H 10/28 1345 DC 10/30 Dextrose/Water 250 ML IV 0929 Docusate Sodium 100 MG DAILY NEEDED PRN 10/30 0900 AC 10/30 PO 1850 Finasteride 5 MG DAILY 10/28 1000 AC 10/30 PO 0929 Furosemide 80 MG 0800 & 1700 10/29 1000 AC 10/30 IV 1849 Levothyroxine Sodium 0.025 MG DAILY AC 10/27 1428 AC 10/30 PO 0636 Oxycodone/ 1 TAB Q6P PRN 10/27 1515 AC Acetaminophen PO Oxycodone/ 2 TAB Q6P PRN 10/27 1515 AC Acetaminophen PO Patient Medication 1 ED .STK-MED ONE 10/30 1352 CO Teaching ED 10/30 1353 Polyethylene Glycol 17 GM DAILY 10/30 1000 AC 10/30 PO 0930 Pravastatin Sodium 20 MG DAILY 10/27 1429 AC 10/30 PO 0930 Senna/Docusate Sodium 1 TAB BID PRN 10/30 0900 AC 10/30 PO 1850 Warfarin Sodium 2 MG COUMADIN 1700 ONE 10/30 1700 DC 10/30 PO 10/30 1701 1849 Last 24 Hrs of Lab/Jamar Results Last 24 Hrs of Labs/Mics: Laboratory Tests 10/30/16 0635: Anion Gap 10, Estimated GFR 22 L, BUN/Creatinine Ratio 25.2 H, PT 31.5 H, INR 3.03 H, CBC w Diff NO MAN DIFF REQ, RBC 3.43 L, MCV 92.9, MCH 31.5 H, RDW 15.8 H, MPV 9.4, Gran % 83.4 H, Lymphocytes % 6.5 L, Monocytes % 8.6, Eosinophils % 1.0, Basophils % 0.5, Absolute Granulocytes 5.3, Absolute Lymphocytes 0.4 L, Absolute Monocytes 0.6, Absolute Eosinophils 0.1, Absolute Basophils 0, PUBS MCHC 33.8 Assessment/Plan Assessment: 89 y/o gentleman with PMH of HFrEF 20-25% (06/08/2016), RVSP 42 mmHg, PPM/ defibrillator, 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 He presents with 2 week duration of increased weight gain 154-161lbs and worsening lower extremity swelling, new onset shortness of breath at rest, 1 episode of hives over his back and chest last night. Assessment and plan 1. CHF exacerbation/ HFrEF 20-25% (06/08/2016), RVSP 42 mmHg -Patient was put on to dobutmine drip, however he developed episodes of V. tach and dobutamine drip stopped. per discussion with Dr. Haynes, we restarted dobutamine on low-dose the if patient developed another episode of V. tach with transfer him to ICU and put him on milrinone drip. Dobutamine drip was discontinued today per cardiology. -Hold antihypertensive medications for now 2. 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 Acute on Chronic renal failure cr is 2.7 which is slightly better today. Continue to monitor 5. BPH Continue finasteride 7. Anemia stable H&H 8. Rash over back Patient had rash over his lower back yesterday, which was itchy, improved with Benadryl. This morning he does not have any rash but the whole back is mildly tender without any lesions evident on examination. Full code, heart healthy diet, DVT prophylaxis is warfarin Problem List: 1. CHF exacerbation 2. Acute on chronic renal failure 3. Leg edema Pain Ratin Pain Location: mild over back Pain Goal: Pain 4 or less Pain Plan: prn Tomorrow's Labs & Rationales: INR to dose coumadin
--- NOTE | 2016-10-30 07:57 | PN- Student ---
Subjective Subjective: This morning Mr. Guadalupe states that he is feeling better overall. He still has a bit of a cough that he said feels like he needs to get something up but cant seem to get it out. He also complained of some soreness below the knee bilaterally. He feels as if his dyspnea is a little better today and is going to try to walk today with PT. He is not having any problem with the urinary catheter, but says that he has still not had a bowel movement since admission. Objective Objective: Vital Signs Date Time Temp Pulse Resp B/P B/P Pulse O2 O2 Flow FiO2 Mean Ox Delivery Rate 10/30 0000 95 Nasal 2.0L Cannula 10/29 2358 98.0 69 20 94/58 96 Nasal Cannula 10/29 2159 96 Nasal 2.0L Cannula 10/29 1621 72 108/60 10/29 1613 97.1 68 20 112/60 100 Nasal 3.5L Cannula 10/29 1600 Nasal Cannula 10/29 1416 122/60 10/29 0918 97 Nasal 2.0L Cannula 10/29 0811 95 Nasal 2.0L Cannula 10/29 0800 97.9 68 20 110/68 97 Nasal 2.0L Cannula Intake & Output 10/30 0800 10/30 0000 10/29 1600 Intake Total 283.2 683.2 490 Output Total 1200 2100 850 Balance -916.8 -1416.8 -360 Intake, IV 83.2 83.2 90 Intake, Oral 200 600 400 Output, Urine 1200 2100 850 Patient 145 lb 148 lb Weight Weight Chair scale Measurement Method Telemetry: single pacing 69-80 no events Note: * patient on lasix 80mg IV BID * dobutamine 250mg IV Q24H w/ 250mL 5% dextrose/H2O PE: General appearance- patient is alert and oriented x 3, he is not in any acute distress and is seated comfortably in chair. HEENT- atraumatic, [place], membranes moist and pink. Neck- supple, no JVD, no thyromegaly or lymphadenopathy CV- S1 and S2 heard, Mechanical valve sounds heard, grade 2 systolic murmur appreciated, no rubs heard Chest- bilateral basilar rales appreciated but greatly improved Abd- soft, tender to palpation of the right upper quadrant (patient stated felt like pushing on a bruise) Skin- well perfused, dry, no lesions Ext- slight soreness to palpation of LE bilaterally, 1+ edema bilaterally extending to mid boyd, 4/5 strength x all extremities. Results Results: Laboratory Tests 10/29/16 0640: Anion Gap 11, Estimated GFR 21 L, BUN/Creatinine Ratio 27.9 H, PT 31.7 H, INR 3.05 H, CBC w Diff NO MAN DIFF REQ, RBC 3.24 L, MCV 93.1, MCH 30.9, RDW 16.1 H, MPV 9.2, Gran % 82.1 H, Lymphocytes % 7.5 L, Monocytes % 9.4 H, Eosinophils % 0.7, Basophils % 0.3, Absolute Granulocytes 4.9, Absolute Lymphocytes 0.4 L, Absolute Monocytes 0.6, Absolute Eosinophils 0, Absolute Basophils 0, PUBS MCHC 33.2 10/28/16 1030: PT 34.7 H, INR 3.34 H 10/28/16 0800: Anion Gap 12, Estimated GFR 18 L, BUN/Creatinine Ratio 29.4 H, Phosphorus 4.8 H, Magnesium 2.3, CBC w Diff NO MAN DIFF REQ, RBC 3.24 L, MCV 92.8, MCH 31.3 H , RDW 15.6 H, MPV 9.8, Gran % 80.8 H, Lymphocytes % 8.5 L, Monocytes % 9.0, Eosinophils % 1.4, Basophils % 0.3, Absolute Granulocytes 4.1, Absolute Lymphocytes 0.4 L, Absolute Monocytes 0.5, Absolute Eosinophils 0.1, Absolute Basophils 0, PUBS MCHC 33.7 10/27/16 1357: Lactic Acid Cancelled 10/27/16 1121: Anion Gap 13, Estimated GFR 16 L, BUN/Creatinine Ratio 30.3 H, Glucose 119 H, Lactic Acid 0.9, Calcium 8.9, Phosphorus 5.9 H, Magnesium 2.5 H, Iron 50, TIBC 386, Ferritin 63.6, Total Bilirubin 1.0, AST 48, ALT 56, Alkaline Phosphatase 77 , Troponin I 0.06, [id number] Pept 42126 H, Total Protein 6.7, Albumin 3.8, Globulin 2.9, Albumin/Globulin Ratio 1.3, PT 35.1 H, INR 3.38 H, APTT 40 H, CBC w Diff NO MAN DIFF REQ, RBC 3.46 L, MCV 92.9, MCH 31.0, RDW 15.8 H, MPV 9.0, Gran % 81.6 H, Lymphocytes % 7.5 L, Monocytes % 9.6 H, Eosinophils % 1.1 , Basophils % 0.2, Absolute Granulocytes 4.0, Absolute Lymphocytes 0.4 L, Absolute Monocytes 0.5, Absolute Eosinophils 0.1, Absolute Basophils 0, PUBS MCHC 33.4 Assessment/Plan Assessment: 89 y/o gentleman with PMH of HFrEF 20-25% (06/08/2016), RVSP 42 mmHg, PPM/ defibrillator, 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 He presents with 2 week duration of increased weight gain 154-161lbs and worsening lower extremity swelling, and new onset shortness of breath at rest. Today he seems to be doing much better. His labs show improvement and he is becoming more mobile as he is able to transition to the chair with assistance. His rash has resolved however he is having diffuse tenderness to superficial palpation across his back. He continues to diurese clear yellow urine and his edema has improved greatly since admission. He has some tenderness to palpation over his right upper quadrant. His dypsnea seems improved and he is still on 2L nasal cannula. Current Medications Sig/Yordy Start time Last Medication Dose Route Stop Time Status Admin Acetaminophen 650 MG Q6P PRN 10/27 1515 AC PO Albuterol Sulfate 3 ML Q4P PRN 10/28 1900 AC 10/29 INH 0918 Amiodarone HCl 100 MG Q48H 10/28 1000 AC 10/30 PO 0929 Amiodarone HCl 200 MG Q48H 10/27 1430 AC 10/29 PO 1621 Benzocaine/Menthol 1 ALVARO Q2P PRN 10/28 1100 AC PO Dobutamine HCl 250 MG Q24H 10/28 1345 DC 10/30 Dextrose/Water 250 ML IV 0929 Docusate Sodium 100 MG DAILY NEEDED PRN 10/30 0900 AC PO Finasteride 5 MG DAILY 10/28 1000 AC 10/30 PO 0929 Furosemide 80 MG 0800 & 1700 10/29 1000 AC 10/30 IV 0835 Levothyroxine Sodium 0.025 MG DAILY AC 10/27 1428 AC 10/30 PO 0636 Oxycodone/ 1 TAB Q6P PRN 10/27 1515 AC Acetaminophen PO Oxycodone/ 2 TAB Q6P PRN 10/27 1515 AC Acetaminophen PO Patient Medication 1 ED .STK-MED ONE 10/30 1352 DC Teaching ED 10/30 1353 Polyethylene Glycol 17 GM DAILY 10/30 1000 AC 10/30 PO 0930 Pravastatin Sodium 20 MG DAILY 10/27 1429 AC 10/30 PO 0930 Senna/Docusate Sodium 1 TAB BID PRN 10/30 0900 AC PO Warfarin Sodium 2 MG COUMADIN 1700 ONE 10/30 1700 AC PO 10/30 1701 Warfarin Sodium 2 MG COUMADIN 1700 ONE 10/29 1700 DC 10/29 PO 10/29 1701 1621 Plan: Treatment plan as of today is centered around treating the dyspnea. So far he is doing well on 2L of oxygen and his lungs are sounding much better. He is diuresing well and will continue to stay on Lasix. Dobutamine was discontinued as per Dr. Child order. Problem list: 1. CHF exacerbation/ HFrEF 20-25% (06/08/2016), RVSP 42 mmHg -Dobutamine discontinued -Hold antihypertensive medications for now 2. Dyspnea -continue oxygen therapy and diuresis with lasix. monitor Oxygen saturation. 3. PPM/defibrillator, CAD s/p CABG w/ St[employer] Jere valve replacement -INR is 3.03 today (target 2.5-3.5) -Continue amiodarone 4. Acute on Chronic renal failure cr is 2.8 which is better today. Continue to monitor 5. BPH Continue finasteride 6. Anemia stable H&H Full code, heart healthy diet, DVT prophylaxis is warfarin
[2016-10-30 08:00] VITALS: BP 110/60
[2016-10-30 08:29] LABS: PT 31.5 SEC (9.4-12.5)
[2016-10-30 08:34] LABS: ABSOLUTE BASOPHIL COUNT 0 /CUMM (0.0-0.2); ABSOLUTE EOSINOPHIL COUNT 0.1 /CUMM (0.0-0.7); ABSOLUTE GRANULOCYTE CT 5.3 /CUMM (1.4-6.5); ABSOLUTE LYMPH COUNT 0.4 /CUMM (1.2-3.4); ABSOLUTE MONOCYTE COUNT 0.6 /CUMM (0.10-0.60); BASOPHIL % 0.5 % (0.0-2.0); HEMATOCRIT 31.9 % (42-52); MEAN CORPUSCULAR HGB 31.5 PG (27.0-31.0); MEAN CORPUSCULAR HGB CONC 33.8 G/DL (33.0-37.0); MEAN CORPUSCULAR VOLUME 92.9 FL (80.0-94.0); MEAN PLATELET VOLUME 9.4 FL (7.4-10.4); PLATELET COUNT 122 /CUMM (130-400); RBC DISTRIBUTION WIDTH 15.8 % (11.5-14.5); RED BLOOD CELL CT 3.43 /CUMM (4.70-6.10); WHITE BLOOD CELL COUNT 6.4 /CUMM (4.8-10.8)
[2016-10-30 09:49] LABS: GRANULOCYTE % 83.4 % (42.2-75.2)
--- NOTE | 2016-10-30 12:16 | PN- Cardiology ---
Subjective Subjective: The patient reports that his shortness of breath is improved significantly. No chest pain. No palpitations. Edema is improving. Rash is improving. Objective Vital Signs and I&Os Vital Signs Date Time Temp Pulse Resp B/P B/P Pulse O2 O2 Flow FiO2 Mean Ox Delivery Rate 10/30 1145 95 Nasal 2.0L Cannula 10/30 0929 74 110/60 10/30 0929 74 110/60 10/30 0800 96 Nasal 2.0L Cannula 10/30 0800 98.3 86 20 110/60 98 Nasal 2.0L Cannula 10/30 0000 95 Nasal 2.0L Cannula 10/29 2358 98.0 69 20 94/58 96 Nasal Cannula 10/29 2159 96 Nasal 2.0L Cannula 10/29 1621 72 108/60 10/29 1613 97.1 68 20 112/60 100 Nasal 3.5L Cannula 10/29 1600 Nasal Cannula 10/29 1416 122/60 Intake & Output 10/30 1600 10/30 0800 10/30 0000 10/29 1600 10/29 0800 10/29 0000 Intake Total 283.2 683.2 490 400 880 Output Total 1200 2100 850 1500 1475 Balance -916.8 -1416.8 -360 -1100 -595 Intake, IV 83.2 83.2 90 Intake, Oral 200 600 400 400 880 Output, Urine 1200 2100 850 1500 1475 Patient 145 lb 148 lb 148 lb Weight Weight Chair scale Standing Scale Measurement Method Physical Exam: Gen: NAD HEENT: normal Lungs: Rales in the bases bilaterally Heart: RRR, mechanical mitral valve sounds ,1/6 systolic murmur Abdomen: Soft, nontender, no masses Extremities: 1+ edema Neuro: Alert and oriented x 3, cranial nerves intact Current Medications: Current Medications Sig/Yordy Start time Last Medication Dose Route Stop Time Status Admin Acetaminophen 650 MG Q6P PRN 10/27 1515 AC PO Albuterol Sulfate 3 ML Q4P PRN 10/28 1900 AC 10/29 INH 0918 Amiodarone HCl 100 MG Q48H 10/28 1000 AC 10/30 PO 0929 Amiodarone HCl 200 MG Q48H 10/27 1430 AC 10/29 PO 1621 Benzocaine/Menthol 1 ALVARO Q2P PRN 10/28 1100 AC PO Dobutamine HCl 250 MG Q24H 10/28 1345 AC 10/30 Dextrose/Water 250 ML IV 0929 Docusate Sodium 100 MG DAILY NEEDED PRN 10/30 0900 AC PO Finasteride 5 MG DAILY 10/28 1000 AC 10/30 PO 0929 Furosemide 80 MG 0800 & 1700 10/29 1000 AC 10/30 IV 0835 Levothyroxine Sodium 0.025 MG DAILY AC 10/27 1428 AC 10/30 PO 0636 Oxycodone/ 1 TAB Q6P PRN 10/27 1515 AC Acetaminophen PO Oxycodone/ 2 TAB Q6P PRN 10/27 1515 AC Acetaminophen PO Polyethylene Glycol 17 GM DAILY 10/30 1000 AC 10/30 PO 0930 Pravastatin Sodium 20 MG DAILY 10/27 1429 AC 10/30 PO 0930 Senna/Docusate Sodium 1 TAB BID PRN 10/30 0900 AC PO Warfarin Sodium 2 MG COUMADIN 1700 ONE 10/29 1700 DC 10/29 PO 10/29 1701 1621 Results Last 48 Hrs of Labs/Mics: Laboratory Tests 10/30/16 0635: Anion Gap 10, Estimated GFR 22 L, BUN/Creatinine Ratio 25.2 H, PT 31.5 H, INR 3.03 H, CBC w Diff NO MAN DIFF REQ, RBC 3.43 L, MCV 92.9, MCH 31.5 H, RDW 15.8 H, MPV 9.4, Gran % 83.4 H, Lymphocytes % 6.5 L, Monocytes % 8.6, Eosinophils % 1.0, Basophils % 0.5, Absolute Granulocytes 5.3, Absolute Lymphocytes 0.4 L, Absolute Monocytes 0.6, Absolute Eosinophils 0.1, Absolute Basophils 0, PUBS MCHC 33.8 10/29/16 0640: Anion Gap 11, Estimated GFR 21 L, BUN/Creatinine Ratio 27.9 H, PT 31.7 H, INR 3.05 H, CBC w Diff NO MAN DIFF REQ, RBC 3.24 L, MCV 93.1, MCH 30.9, RDW 16.1 H, MPV 9.2, Gran % 82.1 H, Lymphocytes % 7.5 L, Monocytes % 9.4 H, Eosinophils % 0.7, Basophils % 0.3, Absolute Granulocytes 4.9, Absolute Lymphocytes 0.4 L, Absolute Monocytes 0.6, Absolute Eosinophils 0, Absolute Basophils 0, PUBS MCHC 33.2 Recent Imaging Studies: Chest x-ray: 1. Cardiomegaly and central vascular congestion without acute interstitial edema. 2. No appreciable change in small right pleural effusion and right basilar opacity/atelectasis. Likely mild atelectasis in retrocardiac region of left lower lobe, as well. No significant, new findings in the chest compared to the prior radiographs. Assessment/Plan Assessment/Plan Assessment: 1. CAD, status post CABG 2. Implanted defibrillator 3. Mechanical mitral valve 4. Acute on chronic heart failure with reduced ejection fraction 5. Acute on chronic kidney disease, improving 6. Nonsustained ventricular tachycardia Plan: * Continue Lasix 80 mg IV every 12 hours * Follow input and output with daily weights * Check basic metabolic profile daily * Discontinue dobutamine * Dose warfarin for INR 2.5-3.5 Continue telemetry? Yes
[2016-10-30 16:18] VITALS: BP 98/60
[2016-10-30 18:45] VITALS: BP 108/60
[2016-10-30 22:15] VITALS: BP 100/58
[2016-10-31 08:28] LABS: PT 32.7 SEC (9.4-12.5)
[2016-10-31 08:48] VITALS: BP 110/60
--- NOTE | 2016-10-31 09:39 | PN- Housestaff ---
Subjective Follow-up For: CHF exacerbation Complaints: no complaints Tele-Events Since Last Visit: Single pacing, HR ranging from 69-74. Subjective: I followed up and examined the patient today. He is resting comfortably in his recliner, not in distress, legs well elevated, no more with oxygen via his nasal cannula, does not have any complaints, vital signs stable. Review of Systems Constitutional: Reports: no symptoms. Objective Last 24 Hrs of Vital Signs/I&O Vital Signs Date Time Temp Pulse Resp B/P B/P Pulse O2 O2 Flow FiO2 Mean Ox Delivery Rate 10/31 1600 98.1 74 20 100/60 95 10/31 1356 96 Room Air Room Air 10/31 0848 98.2 69 18 110/60 91 Room Air 10/30 2215 98.7 60 20 100/58 94 Room Air 10/30 1845 108/60 Intake & Output 10/31 1600 10/31 0800 10/31 0000 Intake Total 100 640 Output Total 650 600 750 Balance -650 -500 -110 Intake, Oral 100 640 Output, Urine 650 600 750 Patient 65.317 kg Weight Weight Chair scale Measurement Method Physical Exam General Appearance: Alert, Oriented X3, Cooperative, No Acute Distress Other Physical Findings: Skin: no change HEENT: Atraumatic, PERRLA, EOMI Neck: Supple, No JVD Cardiovascular: Normal S1, Normal S2, No Murmurs Lungs: Normal Air Movement Abdomen: Normal Bowel Sounds, Soft Neurological: grossly intact Extremities: No Clubbing, No Cyanosis, +1 edema (better) Vascular: Normal Pulses, Pulses Symmetrical Current Medications: Current Medications Sig/Yordy Start time Last Medication Dose Route Stop Time Status Admin Acetaminophen 650 MG Q6P PRN 10/27 1515 AC PO Albuterol Sulfate 3 ML Q4P PRN 10/28 1900 AC 10/31 INH 1354 Amiodarone HCl 100 MG Q48H 10/28 1000 AC 10/30 PO 0929 Amiodarone HCl 200 MG Q48H 10/27 1430 AC 10/29 PO 1621 Benzocaine/Menthol 1 ALVARO Q2P PRN 10/28 1100 AC PO Docusate Sodium 100 MG DAILY NEEDED PRN 10/30 0900 AC 10/30 PO 1850 Finasteride 5 MG DAILY 10/28 1000 AC 10/31 PO 0910 Furosemide 80 MG DAILY 11/01 1000 AC IV Furosemide 80 MG 0800 & 1700 10/29 1000 DC 10/31 IV 0910 Levothyroxine Sodium 0.025 MG DAILY AC 10/27 1428 AC 10/31 PO 0557 Metoprolol Tartrate 12.5 MG BID 10/31 1516 AC PO Oxycodone/ 1 TAB Q6P PRN 10/27 1515 AC Acetaminophen PO Oxycodone/ 2 TAB Q6P PRN 10/27 1515 AC Acetaminophen PO Polyethylene Glycol 17 GM DAILY 10/30 1000 AC 10/31 PO 0910 Potassium Chloride 40 MEQ ONCE ONE 10/31 1115 DC PO 10/31 1116 Pravastatin Sodium 20 MG DAILY 10/27 1429 AC 10/31 PO 0910 Senna/Docusate Sodium 1 TAB BID PRN 10/30 0900 AC 10/30 PO 1850 Spironolactone 12.5 MG DAILY 11/01 1000 AC PO Warfarin Sodium 2 MG COUMADIN 1700 ONE 10/31 1700 DC PO 10/31 1701 Last 24 Hrs of Lab/Jamar Results Last 24 Hrs of Labs/Mics: Laboratory Tests 10/31/16 0640: Anion Gap 8, Estimated GFR 26 L, BUN/Creatinine Ratio 29.6 H, PT 32.7 H, INR 3.15 H Assessment/Plan Assessment: 89 y/o gentleman with PMH of HFrEF 20-25% (06/08/2016), RVSP 42 mmHg, PPM/ defibrillator, 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 He presents with 2 week duration of increased weight gain 154-161lbs and worsening lower extremity swelling, new onset shortness of breath at rest, 1 episode of hives over his back and chest last night. Assessment and plan 1. CHF exacerbation/ HFrEF 20-25% (06/08/2016), RVSP 42 mmHg Hasn't required dobutamine drip anymore. Managing his symptoms with IV Lasix twice a day, but according to cardiology consult has been changed to once daily for now. Due to diuresis, he was placed on Rawls catheter, which will be discontinued tomorrow morning. 2. PPM/defibrillator, CAD s/p CABG w/ St. Jere valve replacement -INR is 3.15 -dosed 2 mg Coumadin today -Continue amiodarone 4. Acute on Chronic renal failure cr is 2.4 which is better today. Continue to monitor 5. BPH Continue finasteride 7. Anemia stable H&H 8. Skin wounds Since admission, patient has had a wound over his coccyx which is stage II pressure injury 0.3 x 0.4 cm several open crater with pink fell, no undermining or tunneling, scant serous drainage, per has been present since few weeks. -Continue skin care/wound care Full code, heart healthy diet, DVT prophylaxis is warfarin Problem List: 1. CHF exacerbation 2. Acute on chronic renal failure 3. Leg edema Pain Ratin Pain Location: - Pain Goal: Pain 4 or less Pain Plan: prn Tomorrow's Labs & Rationales: INR, BEP to dose coumading and to f/u lytes for repletion
--- NOTE | 2016-10-31 09:49 | PN- Cardiology ---
Subjective Subjective: Interval history: This morning Mr. Guadalupe reports feeling fine. He does reports intermittent episodes of shortness of breath with exertion. He denies any chest pain, palpitations, shortness of breath at rest, fevers, chills, nausea or abdominal pain. He reports complete resolution of the rash that was present on admission. Review of Systems Constitutional: Reports: see HPI. EENTM: Reports: no symptoms. Cardiovascular: Reports: no symptoms. Respiratory: Reports: see HPI. Gastrointestinal: Reports: no symptoms. Musculoskeletal: Reports: see HPI. Objective Vital Signs and I&Os Vital Signs Date Time Temp Pulse Resp B/P B/P Pulse O2 O2 Flow FiO2 Mean Ox Delivery Rate 10/31 0848 98.2 69 18 110/60 91 Room Air 10/30 2215 98.7 60 20 100/58 94 Room Air 10/30 1845 108/60 10/30 1634 96 Nasal 2.0L Cannula 10/30 1618 98.1 69 18 98/60 99 Nasal 2.0L Cannula 10/30 1600 96 Nasal 2.0L Cannula 10/30 1145 95 Nasal 2.0L Cannula Intake & Output 10/31 1600 10/31 0800 10/31 0000 10/30 1600 10/30 0800 10/30 0000 Intake Total 100 640 580 283.2 683.2 Output Total 600 183 676 2361 2100 Balance -500 -110 230 -916.8 -1416.8 Intake, IV 60 83.2 83.2 Intake, Oral 100 640 520 200 600 Output, Urine 600 309 352 9720 2100 Patient 144 lb 145 lb Weight Weight Chair scale Chair scale Measurement Method Physical Exam General Appearance: no apparent distress, alert, comfortable Head: normal appearance Ears, Nose, Throat: baseline difficulty with hearing but responds to loud verbal commands. Respiratory: normal breath sounds, chest non-tender, no respiratory distress, slightly diminished breath sounds in the basilar regions Cardiovascular: regular rate/rhythm, systolic murmur Abdomen: normal bowel sounds, soft, non-tender Extremities: normal range of motion, no edema Current Medications: Current Medications Sig/Yordy Start time Last Medication Dose Route Stop Time Status Admin Acetaminophen 650 MG Q6P PRN 10/27 1515 AC PO Albuterol Sulfate 3 ML Q4P PRN 10/28 1900 AC 10/29 INH 0918 Amiodarone HCl 100 MG Q48H 10/28 1000 AC 10/30 PO 0929 Amiodarone HCl 200 MG Q48H 10/27 1430 AC 10/29 PO 1621 Benzocaine/Menthol 1 ALVARO Q2P PRN 10/28 1100 AC PO Dobutamine HCl 250 MG Q24H 10/28 1345 DC 10/30 Dextrose/Water 250 ML IV 0929 Docusate Sodium 100 MG DAILY NEEDED PRN 10/30 0900 AC 10/30 PO 1850 Finasteride 5 MG DAILY 10/28 1000 AC 10/31 PO 0910 Furosemide 80 MG 0800 & 1700 10/29 1000 AC 10/31 IV 0910 Levothyroxine Sodium 0.025 MG DAILY AC 10/27 1428 AC 10/31 PO 0557 Oxycodone/ 1 TAB Q6P PRN 10/27 1515 AC Acetaminophen PO Oxycodone/ 2 TAB Q6P PRN 10/27 1515 AC Acetaminophen PO Patient Medication 1 ED .STK-MED ONE 10/30 1352 [place] Teaching ED 10/30 1353 Polyethylene Glycol 17 GM DAILY 10/30 1000 10/31 PO 0910 Pravastatin Sodium 20 MG DAILY 10/27 1429 10/31 PO 0910 Senna/Docusate Sodium 1 TAB BID PRN 10/30 0900 AC 10/30 PO 1850 Warfarin Sodium 2 MG COUMADIN 1700 ONE 10/30 1700 DC 10/30 PO 10/30 1701 1849 Results Last 48 Hrs of Labs/Mics: Laboratory Tests 10/31/16 0640: Anion Gap 8, Estimated GFR 26 L, BUN/Creatinine Ratio 29.6 H, PT 32.7 H, INR 3.15 H 10/30/16 0635: Anion Gap 10, Estimated GFR 22 L, BUN/Creatinine Ratio 25.2 H, PT 31.5 H, INR 3.03 H, CBC w Diff NO MAN DIFF REQ, RBC 3.43 L, MCV 92.9, MCH 31.5 H, RDW 15.8 H, MPV 9.4, Gran % 83.4 H, Lymphocytes % 6.5 L, Monocytes % 8.6, Eosinophils % 1.0, Basophils % 0.5, Absolute Granulocytes 5.3, Absolute Lymphocytes 0.4 L, Absolute Monocytes 0.6, Absolute Eosinophils 0.1, Absolute Basophils 0, PUBS MCHC 33.8 Assessment/Plan Assessment/Plan 89 y/o gentleman with PMH of HFrEF 20-25% (06/08/2016), RVSP 42 mmHg, PPM/ defibrillator, 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 He presents with 2 week duration of increased weight gain 154-161lbs and worsening lower extremity swelling, new onset shortness of breath at rest, 1 episode of hives over his back and chest last night. VS on admission: BP 120/80, HR 78, RR 18, SPO2 91% on 2L NC,, T 96.5 Pertinent labs: WBC 4.9, H&H 10.7/32.1, platelets 130, sodium 138, potassium 4.0 , chloride 102, bicarbonate 24, BUN/CR 112/3.7, glucose 119 INR: 3.38 ProBNP: 25,500 Patient was started on furosemide 80 mg IV daily and dobutamine drip on admission. He did have a 16 episode of V. tach at which point dobutamine was discontinued temporarily. He has had good urine output since then. Problem list: 1. CHF exacerbation 2. HFrEF 20-25% (06/08/2016), RVSP 42 mmHg 3. PPM/defibrillator, CAD s/p CABG w/ St. Jere valve replacement 4. Acute on Chronic renal failure 5. BPH 6. Hypothyroidism 7. Anemia Recommendations: * Patient is negative Fluid balance since admission, 6 pound weight loss * Likely transition to furosemide 80 IV daily from BID today * Supplemental potassium for target greater than 4.0 * Continue dosing Coumadin for target 2.5 to 3.5 Continue telemetry? Yes Problem List: 1. Congestive heart failure 2. Acute on chronic renal failure 3. HFrEF (heart failure with reduced ejection fraction) 4. BPH (benign prostatic hypertrophy) with urinary retention
--- NOTE | 2016-10-31 09:59 | PN- Student ---
Subjective Subjective: This morning Mr. Guadalupe is feeling well. He stated that he had a little dyspnea overnight but that it was not bad. He reports that his walking yesterday went well. He has no complaints of chest pain, no palpitations, no abdominal pain, and stated that his rash is better. He did have a bowel movement last night that he described as good quantity and normal consistency. Objective Objective: Vital Signs Date Time Temp Pulse Resp B/P B/P Pulse O2 O2 Flow FiO2 Mean Ox Delivery Rate 10/31 0848 98.2 69 18 110/60 91 Room Air 10/30 2215 98.7 60 20 100/58 94 Room Air 10/30 1845 108/60 10/30 1634 96 Nasal 2.0L Cannula 10/30 1618 98.1 69 18 98/60 99 Nasal 2.0L Cannula 10/30 1600 96 Nasal 2.0L Cannula 10/30 1145 95 Nasal 2.0L Cannula Intake & Output 10/31 1600 10/31 0800 10/31 0000 Intake Total 100 640 Output Total 600 750 Balance -500 -110 Intake, Oral 100 640 Output, Urine 600 750 Patient 144 lb Weight Weight Chair scale Measurement Method Telemetry: single pacing no events General appearance- patient is alert and oriented x 3, he is not in any acute distress and is seated comfortably in chair. HEENT- atraumatic, [place], membranes moist and pink. Neck- supple, no JVD, no thyromegaly or lymphadenopathy CV- S1 and S2 heard, Mechanical valve sounds heard, grade 2 systolic murmur appreciated, no rubs heard Chest- vesicular sounds throughout, no rales heard. good air flow Abd- soft, non-tender, no distention noted Skin- well perfused, dry, no lesions Ext- no edema, 4/5 strength x all extremities. Results Results: Laboratory Tests 10/31/16 0640: Anion Gap 8, Estimated GFR 26 L, BUN/Creatinine Ratio 29.6 H, PT 32.7 H, INR 3.15 H 10/30/16 0635: Anion Gap 10, Estimated GFR 22 L, BUN/Creatinine Ratio 25.2 H, PT 31.5 H, INR 3.03 H, CBC w Diff NO MAN DIFF REQ, RBC 3.43 L, MCV 92.9, MCH 31.5 H, RDW 15.8 H, MPV 9.4, Gran % 83.4 H, Lymphocytes % 6.5 L, Monocytes % 8.6, Eosinophils % 1.0, Basophils % 0.5, Absolute Granulocytes 5.3, Absolute Lymphocytes 0.4 L, Absolute Monocytes 0.6, Absolute Eosinophils 0.1, Absolute Basophils 0, PUBS MCHC 33.8 10/29/16 0640: Anion Gap 11, Estimated GFR 21 L, BUN/Creatinine Ratio 27.9 H, PT 31.7 H, INR 3.05 H, CBC w Diff NO MAN DIFF REQ, RBC 3.24 L, MCV 93.1, MCH 30.9, RDW 16.1 H, MPV 9.2, Gran % 82.1 H, Lymphocytes % 7.5 L, Monocytes % 9.4 H, Eosinophils % 0.7, Basophils % 0.3, Absolute Granulocytes 4.9, Absolute Lymphocytes 0.4 L, Absolute Monocytes 0.6, Absolute Eosinophils 0, Absolute Basophils 0, PUBS MCHC 33.2 10/28/16 1030: PT 34.7 H, INR 3.34 H Assessment/Plan Assessment: 89 y/o gentleman with PMH of HFrEF 20-25% (06/08/2016), RVSP 42 mmHg, PPM/ defibrillator, 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 He presents with 2 week duration of increased weight gain 154-161lbs and worsening lower extremity swelling, and new onset shortness of breath at rest. Today Mr. Guadalupe is feeling very well. He is alert and oriented x 3, no dyspnea on examination and he is saturating at 94% on room air. He is more mobile than he was yesterday and stated that he is moving around much better. His edema is greatly improved/resoved and he is not having any pain or soreness in his lower extremities. His coughing is much better and his labs improved and stable. Current Medications Sig/Yordy Start time Last Medication Dose Route Stop Time Status Admin Acetaminophen 650 MG Q6P PRN 10/27 1515 AC PO Albuterol Sulfate 3 ML Q4P PRN 10/28 1900 AC 10/31 INH 1354 Amiodarone HCl 100 MG Q48H 10/28 1000 AC 10/30 PO 0929 Amiodarone HCl 200 MG Q48H 10/27 1430 AC 10/29 PO 1621 Benzocaine/Menthol 1 ALVARO Q2P PRN 10/28 1100 AC PO Docusate Sodium 100 MG DAILY NEEDED PRN 10/30 0900 AC 10/30 PO 1850 Finasteride 5 MG DAILY 10/28 1000 AC 10/31 PO 0910 Furosemide 80 MG DAILY 11/01 1000 AC IV Furosemide 80 MG 0800 & 1700 10/29 1000 DC 10/31 IV 0910 Levothyroxine Sodium 0.025 MG DAILY AC 10/27 1428 AC 10/31 PO 0557 Oxycodone/ 1 TAB Q6P PRN 10/27 1515 AC Acetaminophen PO Oxycodone/ 2 TAB Q6P PRN 10/27 1515 AC Acetaminophen PO Polyethylene Glycol 17 GM DAILY 10/30 1000 AC 10/31 PO 0910 Potassium Chloride 40 MEQ ONCE ONE 10/31 1115 DC PO 10/31 1116 Pravastatin Sodium 20 MG DAILY 10/27 1429 AC 10/31 PO 0910 Senna/Docusate Sodium 1 TAB BID PRN 10/30 0900 AC 10/30 PO 1850 Warfarin Sodium 2 MG COUMADIN 1700 ONE 10/31 1700 AC PO 10/31 1701 Warfarin Sodium 2 MG COUMADIN 1700 ONE 10/30 1700 DC 10/30 PO 10/30 1701 1849 Plan: Mr. Guadalupe is doing very well. His dyspnea is greatly improved and he is back to breathing well on room air. Possible discharge today with rehab. will check with attending on discharge. Problem list: 1. CHF exacerbation/ HFrEF 20-25% (06/08/2016), RVSP 42 mmHg -Dobutamine discontinued -Hold antihypertensive medications for now 2. Dyspnea -continue oxygen therapy and diuresis with lasix 80 mg daily. monitor Oxygen saturation. 3. PPM/defibrillator, CAD s/p CABG w/ [employer] Jere valve replacement -INR is 3.15 today (target 2.5-3.5), continue warfarin 2mg daily PO -Continue amiodarone 4. Acute on Chronic renal failure cr is 2.8 which is better today. Continue to monitor 5. BPH Continue finasteride 6. Anemia stable H&H Full code, heart healthy diet, DVT prophylaxis is warfarin
[2016-10-31 16:00] VITALS: BP 100/60
[2016-11-01 00:24] VITALS: BP 96/52
[2016-11-01 08:20] LABS: PT 32.4 SEC (9.4-12.5)
--- NOTE | 2016-11-01 08:25 | PN- Housestaff ---
Subjective Follow-up For: CHF exacerbation Complaints: no complaints Tele-Events Since Last Visit: Single pacing, heart rate 69-81 overnight Subjective: I followed up and examined the patient today. He is resting comfortably in his recliner, not in distress, no additional oxygen, Rawls still on, with no complaints. Telemetry event noted as above, vital signs stable, no other issues. Review of Systems Constitutional: Reports: no symptoms. Objective Last 24 Hrs of Vital Signs/I&O Vital Signs Date Time Temp Pulse Resp B/P B/P Pulse O2 O2 Flow FiO2 Mean Ox Delivery Rate 11/01 0922 110/60 11/01 0922 110/60 11/01 0846 97.6 70 20 102/62 95 Room Air 11/01 0824 95 Room Air 11/01 0024 99.0 84 20 96/52 94 Room Air 10/31 2126 76 10/31 1905 94 Room Air 10/31 1748 108/70 10/31 1600 98.1 74 20 100/60 95 10/31 1356 96 Room Air Room Air Intake & Output 11/01 1600 11/01 0800 11/01 0000 Intake Total 250 500 Output Total 375 500 Balance -125 0 Intake, IV 0 0 Intake, Oral 250 500 Number 1 0 Bowel Movements Output, Urine 375 500 Patient 65.317 kg Weight Weight Chair scale Measurement Method Physical Exam General Appearance: Alert, Oriented X3, Cooperative, No Acute Distress Other Physical Findings: Skin: no change HEENT: Atraumatic, PERRLA, EOMI Neck: Supple, No JVD Cardiovascular: Normal S1, Normal S2, No Murmurs Lungs: Normal Air Movement Abdomen: Normal Bowel Sounds, Soft Neurological: grossly intact Extremities: No Clubbing, No Cyanosis, no edema anymore Vascular: Normal Pulses, Pulses Symmetrical Current Medications: Current Medications Sig/Yordy Start time Last Medication Dose Route Stop Time Status Admin Acetaminophen 650 MG Q6P PRN 10/27 1515 AC PO Albuterol Sulfate 3 ML BID 11/01 1000 AC 11/01 INH 0822 Albuterol Sulfate 3 ML Q4P PRN 10/28 1900 DC 10/31 INH 1905 Amiodarone HCl 100 MG Q48H 10/28 1000 AC 11/01 PO 0922 Amiodarone HCl 200 MG Q48H 10/27 1430 AC 10/31 PO 1748 Benzocaine/Menthol 1 ALVARO Q2P PRN 10/28 1100 AC PO Docusate Sodium 100 MG DAILY NEEDED PRN 10/30 0900 AC 10/30 PO 1850 Finasteride 5 MG DAILY 10/28 1000 AC 11/01 PO 0922 Furosemide 80 MG DAILY 11/01 1000 AC 11/01 IV 0921 Levothyroxine Sodium 0.025 MG DAILY AC 10/27 1428 AC 11/01 PO 0521 Metoprolol Tartrate 12.5 MG BID 11/01 2200 AC PO Metoprolol Tartrate 12.5 MG BID 10/31 1516 DC 11/01 PO 0922 Oxycodone/ 1 TAB Q6P PRN 10/27 1515 AC Acetaminophen PO Oxycodone/ 2 TAB Q6P PRN 10/27 1515 AC Acetaminophen PO Polyethylene Glycol 17 GM DAILY 10/30 1000 AC 11/01 PO 0922 Pravastatin Sodium 20 MG DAILY 10/27 1429 AC 11/01 PO 0922 Senna/Docusate Sodium 1 TAB BID PRN 10/30 0900 AC 10/30 PO 1850 Spironolactone 12.5 MG DAILY 11/01 1000 AC 11/01 PO 0922 Warfarin Sodium 2 MG COUMADIN 1700 ONE 10/31 1700 DC 10/31 PO 10/31 1701 1748 Last 24 Hrs of Lab/Jamar Results Last 24 Hrs of Labs/Mics: Laboratory Tests 11/01/16 0640: Anion Gap 9, Estimated GFR 26 L, BUN/Creatinine Ratio 29.2 H, PT 32.4 H, INR 3.12 H Assessment/Plan Assessment: 89 y/o gentleman with PMH of HFrEF 20-25% (06/08/2016), RVSP 42 mmHg, PPM/ defibrillator, 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 He presented with 2 weeks-duration of increased weight gain 154-161lbs and worsening lower extremity swelling, new onset shortness of breath at rest, 1 episode of hives over his back and chest x1 day. Assessment and plan 1. CHF exacerbation/ HFrEF 20-25% (06/08/2016), RVSP 42 mmHg -Initially required Dobutamine drip. Not anymore. -Managing his symptoms with IV Lasix twice a day thereafter, but daily since yesterday. -Ron is stable to be discharged today with home health aid, with home dose of Lasix for now, but a weekly follow-up with CHF clinic. This has been explained to the ron and his family members ( and daughter), and they agree to the plan as well. 2. PPM/defibrillator, CAD s/p CABG w/ St[employer] Jere valve replacement -INR is 3.12 -dosed 2 mg Coumadin today -Continue amiodarone as before 4. Acute on Chronic renal failure cr is 2.4 today. Continue to monitor 5. BPH Continue finasteride 7. Anemia stable H&H 8. Skin wounds Since admission, patient has had a wound over his coccyx which is stage II pressure injury 0.3 x 0.4 cm several open crater with pink fell, no undermining or tunneling, scant serous drainage, per has been present since few weeks. -Continue skin care/wound care Full code, heart healthy diet, DVT prophylaxis is warfarin Problem List: 1. CHF exacerbation 2. H/O mitral valve replacement with mechanical valve Pain Ratin Pain Location: - Pain Goal: Pain 4 or less Pain Plan: prn Tomorrow's Labs & Rationales: -
[2016-11-01 08:46] VITALS: BP 102/62
--- NOTE | 2016-11-01 10:54 | PN- Student ---
Subjective Subjective: This morning Mr. Guadalupe is feeling well. He has no complaints other than a tender spot in the middle of his back. He is only getting short of breath during exertion which he says was normal for him prior to his admission. He reports having a bowel movement that was normal in quantity and cosistency and denies any chest, abdominal, or extremity pains. Overall he feels that he is back to baseline. Objective Objective: Vital Signs Date Time Temp Pulse Resp B/P B/P Pulse O2 O2 Flow FiO2 Mean Ox Delivery Rate 11/01 09 110/60 11/01 0922 110/60 11/01 0846 97.6 70 20 102/62 95 Room Air 11/01 0824 95 Room Air 11/01 0024 99.0 84 20 96/52 94 Room Air 10/31 2126 76 10/31 1905 94 Room Air 10/31 1748 108/70 10/31 1600 98.1 74 20 100/60 95 10/31 1356 96 Room Air Room Air Intake & Output 11/01 1600 11/01 0800 11/01 0000 Intake Total 250 500 Output Total 375 500 Balance -125 0 Intake, IV 0 0 Intake, Oral 250 500 Number 1 0 Bowel Movements Output, Urine 375 500 Patient 144 lb Weight Weight Chair scale Measurement Method Telemetry: single pacing 71-81 with no events Labs: 24 hr fluid- -1150, Wt.- 144, H/H- 10.8/31.9, INR- 3.12, PT- 32.4, K- 4.1, BUN- 70, Pillar Worker-2.4, GFR-26 General appearance- patient is alert and oriented x 3, he is not in any acute distress and is seated comfortably in chair. HEENT- atraumatic, [place], membranes moist and pink. Neck- supple, no JVD, no thyromegaly or lymphadenopathy CV- S1 and S2 heard, Mechanical valve sounds heard, grade 2 systolic murmur appreciated, no rubs heard Chest- vesicular sounds throughout, no rales heard. good air flow Abd- soft, non-tender, no distention noted Skin- well perfused, dry, no lesions Ext- no edema, 4/5 strength x all extremities. Results Results: Laboratory Tests 11/01/16 0640: Anion Gap 9, Estimated GFR 26 L, BUN/Creatinine Ratio 29.2 H, PT 32.4 H, INR 3.12 H 10/31/16 0640: Anion Gap 8, Estimated GFR 26 L, BUN/Creatinine Ratio 29.6 H, PT 32.7 H, INR 3.15 H 10/30/16 0635: Anion Gap 10, Estimated GFR 22 L, BUN/Creatinine Ratio 25.2 H, PT 31.5 H, INR 3.03 H, CBC w Diff NO MAN DIFF REQ, RBC 3.43 L, MCV 92.9, MCH 31.5 H, RDW 15.8 H, MPV 9.4, Gran % 83.4 H, Lymphocytes % 6.5 L, Monocytes % 8.6, Eosinophils % 1.0, Basophils % 0.5, Absolute Granulocytes 5.3, Absolute Lymphocytes 0.4 L, Absolute Monocytes 0.6, Absolute Eosinophils 0.1, Absolute Basophils 0, PUBS MCHC 33.8 Assessment/Plan Assessment: 89 y/o gentleman with PMH of HFrEF 20-25% (06/08/2016), RVSP 42 mmHg, PPM/ defibrillator, 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 He presents with 2 week duration of increased weight gain 154-161lbs and worsening lower extremity swelling, and new onset shortness of breath at rest. Today Mr. Guadalupe is feeling very well. He is alert and oriented x 3, no dyspnea on examination and he is saturating at 95% on room air. He is able to walk the hallway with minimal shortness of breath. His edema is resolved and he is not having any pain or soreness in his lower extremities. His coughing has resolved and his labs are stable. Current Medications Sig/Yordy Start time Last Medication Dose Route Stop Time Status Admin Acetaminophen 650 MG Q6P PRN 10/27 1515 AC PO Albuterol Sulfate 3 ML BID 11/01 1000 AC 11/01 INH 0822 Albuterol Sulfate 3 ML Q4P PRN 10/28 1900 DC 10/31 INH 1905 Amiodarone HCl 100 MG Q48H 10/28 1000 AC 11/01 PO 0922 Amiodarone HCl 200 MG Q48H 10/27 1430 AC 10/31 PO 1748 Benzocaine/Menthol 1 ALVARO Q2P PRN 10/28 1100 AC PO Docusate Sodium 100 MG DAILY NEEDED PRN 10/30 0900 AC 10/30 PO 1850 Finasteride 5 MG DAILY 10/28 1000 AC 11/01 PO 0922 Furosemide 80 MG DAILY 11/01 1000 AC 11/01 IV 0921 Furosemide 80 MG 0800 & 1700 10/29 1000 DC 10/31 IV 0910 Levothyroxine Sodium 0.025 MG DAILY AC 10/27 1428 AC 11/01 PO 0521 Metoprolol Tartrate 12.5 MG BID 10/31 1516 AC 11/01 PO 0922 Oxycodone/ 1 TAB Q6P PRN 10/27 1515 AC Acetaminophen PO Oxycodone/ 2 TAB Q6P PRN 10/27 1515 AC Acetaminophen PO Polyethylene Glycol 17 GM DAILY 10/30 1000 AC 11/01 PO 0922 Potassium Chloride 40 MEQ ONCE ONE 10/31 1115 DC 10/31 PO 10/31 1116 1748 Pravastatin Sodium 20 MG DAILY 10/27 1429 AC 11/01 PO 0922 Senna/Docusate Sodium 1 TAB BID PRN 10/30 0900 AC 10/30 PO 1850 Spironolactone 12.5 MG DAILY 11/01 1000 AC 11/01 PO 0922 Warfarin Sodium 2 MG COUMADIN 1700 ONE 10/31 1700 DC 10/31 PO 10/31 1701 1748 Plan: Mr. Guadalupe is doing very well. His dyspnea is greatly improved and he is back to breathing well on room air. After speaking with Dr. Golden it was decided to discharge him home on his previous home medicine regimen and also recommend he visit the CHF clinic weekly. Problem list: 1. CHF exacerbation/ HFrEF 20-25% (06/08/2016), RVSP 42 mmHg -Dobutamine discontinued -Hold antihypertensive medications for now -will continue home medications on discharge. 2. Dyspnea -continue oxygen therapy and diuresis with lasix 80 mg daily. monitor Oxygen saturation. -will continue home regimen on discharge. 3. PPM/defibrillator, CAD s/p CABG w/ St. Jere valve replacement -INR is 3.15 today (target 2.5-3.5), continue warfarin 2mg daily PO -Continue amiodarone 4. Acute on Chronic renal failure cr is 2.8 which is better today. Continue to monitor 5. BPH Continue finasteride 6. Anemia stable H&H Full code, heart healthy diet, DVT prophylaxis is warfarin
[2016-11-01] MEDS ORDERED: COUMADIN2 M1 PO (13:54)
[2016-11-01] MEDS ORDERED: MIRALAX119 GM PO (13:54)
[2016-11-01] MEDS ORDERED: DOCUSATE SODIU100 M3 PO (13:54)
--- NOTE | 2016-11-01 14:46 | Patient Discharge Instructions ---
Discharge Instructions General Discharge Information You were seen/treated for: CHF Exacerbation Watch for these problems: shortness of breath, weight gain, legs swelling, fever Special Instructions: Please follow up with your PCP within one week of discharge. Please follow up with CHF clinic weekly after your discharge per Director Of Culture's recommendation. Please check your INR (blood test) in 3-4 days of discharge and report the result to your doctor. Coumadin (Warfarin) dose might need readjustment. It is 2mg daily by mouth for now. Please return to emergency if symptoms worsen. Diet Continue normal diet: No Recommended Diet: Heart Healthy Activity Full Activity/No Limits: No Activity Self Limited: Yes Acute Coronary Syndrome Inclusion Criteria At DC or during hospital stay patient has or had the following: ACS DIAGNOSIS No Discharge Core Measures Meds if any: Prescribed or Continued at Discharge Meds if any: NOT Prescribed or Continued at Discharge Congestive Heart Failure Inclusion Criteria At DC or during hospital stay patient has or had the following: CHF DIAGNOSIS Yes Discharge Core Measures Meds if any: Prescribed or Continued at Discharge Meds if any: NOT Prescribed or Continued at Discharge Cerebrovascular accident Inclusion Criteria At DC or during hospital stay patient has or had the following: CVA/TIA Diagnosis No Discharge Core Measures Meds if any: Prescribed or Continued at Discharge Meds if any: NOT Prescribed or Continued at Discharge Venous thromboembolism Inclusion Criteria VTE Diagnosis No VTE Type NONE VTE Confirmed by (Test) NONE Discharge Core Measures - Per Current guidelines, there needs to be overlap - treatment for the first 5 days of Warfarin therapy. - If discharged on Warfarin prior to 5 days of - overlap therapy, the patient will need to be - assessed for post discharge needs including - *Post discharge parental anticoagulation - *Warfarin and/or parental anticoagulation education - *Follow up date to check INR post discharge At least 5 days overlap therapy as Inpatient No Meds if any: Prescribed or Continued at Discharge Note: Overlap Therapy is Warfarin and Anticoagulant Meds if any: NOT Prescribed or Continued at Discharge
[2016-11-01] MEDS ORDERED: SENNA PLUS TAB1 EACH PO (14:48)
[2016-11-01 17:02] VITALS: BP 100/58
--- NOTE | 2016-11-01 21:27 | PN- Cardiology ---
Subjective Subjective: clinically improved. Objective Vital Signs and I&Os Vital Signs Date Time Temp Pulse Resp B/P B/P Pulse O2 O2 Flow FiO2 Mean Ox Delivery Rate 11/01 1820 95 Room Air 11/01 1702 97.9 69 18 100/58 96 11/01 0922 110/60 11/01 0922 110/60 11/01 0846 97.6 70 20 102/62 95 Room Air 11/01 0824 95 Room Air 11/01 0024 99.0 84 20 96/52 94 Room Air Intake & Output 11/01 1600 11/01 0800 11/01 0000 10/31 1600 10/31 0800 10/31 0000 Intake Total 500 250 500 100 640 Output Total 750 375 500 650 600 750 Balance -250 -125 0 -650 -500 -110 Intake, IV 100 0 0 Intake, Oral 400 250 500 100 640 Number 1 1 0 Bowel Movements Output, Urine 750 375 500 650 600 750 Patient 144 lb 144 lb Weight Weight Chair scale Chair scale Measurement Method Current Medications: Current Medications Sig/Yordy Start time Last Medication Dose Route Stop Time Status Admin Acetaminophen 650 MG Q6P PRN 10/27 1515 DCD PO Albuterol Sulfate 3 ML BID 11/01 1000 DCD 11/01 INH 1820 Amiodarone HCl 100 MG Q48H 10/28 1000 DCD 11/01 PO 0922 Amiodarone HCl 200 MG Q48H 10/27 1430 DCD 10/31 PO 1748 Benzocaine/Menthol 1 ALVARO Q2P PRN 10/28 1100 DCD PO Docusate Sodium 100 MG DAILY NEEDED PRN 10/30 0900 DCD 10/30 PO 1850 Finasteride 5 MG DAILY 10/28 1000 DCD 11/01 PO 0922 Furosemide 80 MG DAILY 11/01 1000 DCD 11/01 IV 0921 Levothyroxine Sodium 0.025 MG DAILY AC 10/27 1428 DCD 11/01 PO 0521 Metoprolol Tartrate 12.5 MG BID 11/01 2200 DCD PO Metoprolol Tartrate 12.5 MG BID 10/31 1516 DC 11/01 PO 0922 Oxycodone/ 1 TAB Q6P PRN 10/27 1515 DCD Acetaminophen PO Oxycodone/ 2 TAB Q6P PRN 10/27 1515 DCD Acetaminophen PO Patient Medication 1 ED .STK-MED ONE 11/01 1416 DC Teaching ED 11/01 1417 Polyethylene Glycol 17 GM DAILY 10/30 1000 DCD 11/01 PO 0922 Pravastatin Sodium 20 MG DAILY 10/27 1429 DCD 11/01 PO 0922 Senna/Docusate Sodium 1 TAB BID PRN 10/30 0900 DCD 10/30 PO 1850 Spironolactone 12.5 MG DAILY 11/01 1000 DCD 11/01 PO 0922 Warfarin Sodium 2 MG COUMADIN 1700 ONE 11/01 1700 DC 11/01 PO 11/01 1701 1750 Results Last 48 Hrs of Labs/Mics: Laboratory Tests 11/01/16 0640: Anion Gap 9, Estimated GFR 26 L, BUN/Creatinine Ratio 29.2 H, PT 32.4 H, INR 3.12 H 10/31/16 0640: Anion Gap 8, Estimated GFR 26 L, BUN/Creatinine Ratio 29.6 H, PT 32.7 H, INR 3.15 H Assessment/Plan Assessment/Plan Problem list: 1. CHF exacerbation 2. HFrEF 20-25% (06/08/2016), RVSP 42 mmHg 3. PPM/defibrillator, CAD s/p CABG w/ [employer]. Jere valve replacement 4. Acute on Chronic renal failure 5. BPH 6. Hypothyroidism 7. Anemia Recommendations: - Continue current medication - Outpatient folowup with me and CHF clinic - Further discussion with Dr. Levy about decision about possible outpatient cardioversion. Continue telemetry? No
--- NOTE | 2016-11-08 21:52 | Discharge Summary ---
Visit Information Visit Dates Admission Date: 10/27/16 Discharge Date: 11/01/16 Hospital Course Course Attending Physician: EVARISTO LOTT MD (Admitting) Dr Stevie Golden (Attending) Primary Care Physician: GERA ROBLERO,[facility] Course: Mr Guadalupe is a 89 y/o gentleman with PMH of HFrEF 20-25% (06/08/2016), RVSP 42 mmHg, PPM/defibrillator, 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 He presented with 2 weeks- duration of increased weight gain from 154 to 161 lb and worsening lower extremity swelling, new onset shortness of breath at rest, 1 episode of hives over his back and chest x1 day. He was managed in the telemetry floor for the following issues: # CHF exacerbation/ HFrEF 20-25% (06/08/2016), RVSP 42 mmHg -Initially required Dobutamine drip, developed some V tach episodes, so it was stopped. Rate, rhythm monitored closely, but patient's condition improved, so was continued to be monitored in the telemetry unit. He received IV Lasix twice thereafter. -Ron was stable to be discharged on 11/01/16 with home health aid, with home dose of Lasix and a weekly follow-up with CHF clinic. The plan was explained to the ron and his family members ( and daughter), and they agreed to the plan as well. # PPM/defibrillator, CAD s/p CABG w/ [employer] valve replacement DD INR monitored and Coumadin dosed. Please continue Amiodarone as before. # Acute on Chronic renal failure Initially came in with creatinine of 3.7, was 2.4 at the time of discharge, getting better. Needs follow-up on this as well. # BPH Continued finasteride # Anemia stable H&H , of 10.8/31.9 at the time of discharge # Skin wounds Since admission, patient has had a wound over his coccyx which is stage II pressure injury 0.3 x 0.4 cm several open crater with pink fell, no undermining or tunneling, scant serous drainage, per has been present since few weeks. Continued skin care. Full code, got heart healthy diet, and DVT prophylaxis was warfarin. Allergies: Coded Allergies: sulfamethoxazole (From Bactrim) (RASH 09/11/15) trimethoprim (From Bactrim) (RASH 09/11/15) Disposition Summary Disposition Principal Diagnosis: CHF exacerbation Additional Diagnosis: HFrEF 20-25% (06/08/2016), RVSP 42 mmHg, PPM/defibrillator, CAD s/p CABG w/ [employer] valve replacement currently on Coumadin, hypothyroidism, chronic renal failure, BPH, recent admitted in September 2016 for lower extremity swelling/CHF exacerbation and discharged on increased Lasix 20-40 mg daily and discharged home Discharge Disposition: home health services Discharge Instructions General Discharge Information Code Status: Full Code Patient's Diet: Heart healthy Patient's Activity: As tolerated Follow-Up Instructions/Appts: Please follow up with your PCP within one week of discharge. Please follow up with CHF clinic weekly after your discharge per Front Desk Clerk's recommendation. Please check your INR (blood test) in 3-4 days of discharge and report the result to your doctor. Coumadin (Warfarin) dose might need readjustment. It is 2mg daily by mouth for now. Please return to emergency if symptoms worsen. Medications at Discharge Discharge Medications: Stop taking the following medications: Warfarin Sodium (Coumadin) 1 MG TABLET ORAL SAT-SAT Continue taking these medications: Amiodarone HCl (Amiodarone HCl) 200 MG TABLET 100 Milligram ORAL EVERY 48 HOURS (Every 2 days) Comments: Last Taken: 09/12/16 Time: 8AM Pravastatin Sodium (Pravastatin Sodium) 20 MG TABLET 1 Tablet ORAL DAILY Qty = 90 Comments: Last Taken: 11/01/16 Time: 1000 Levothyroxine Sodium (Levothyroxine Sodium) 25 MCG TABLET 1 Tablet ORAL DAILY BEFORE BREAKFAST Qty = 30 Comments: Last Taken: 11/01/16 Time: 6 AM Amiodarone HCl (Amiodarone HCl) 200 MG TABLET 1 Tablet ORAL Every other day Comments: Last Taken: 09/13/16 Time: 6AM Finasteride (Finasteride) 5 MG TABLET 1 Tablet ORAL DAILY Qty = 30 Comments: Last Taken: 11/01/16 Time: 9 AM Metoprolol Tartrate (Metoprolol Tartrate) 25 MG TABLET 0.5 Tablet ORAL TWICE DAILY Comments: Last Taken: 11/01/16 Time: 9AM PT RECEIVED 12.5MG Spironolactone (Spironolactone) 25 MG TABLET 0.5 Tablet ORAL DAILY Qty = 45 Comments: Last Taken: 11/01/16 Time: 9 AM Furosemide (Lasix) 40 MG TABLET 40 Milligram ORAL DAILY Qty = 7 Instructions: please follow up with call or contact centre operator within a week to reassess Comments: Last Taken:11/01/16 Time:1000 GIVEN 80MG IV Start taking the following new medications: Docusate Sodium (Docusate Sodium) 100 MG CAPSULE 100 Milligram ORAL DAILY NEEDED as needed for CONSTIPATION Qty = 30 No Refills Polyethylene Glycol 3350 (Miralax) 17 GRAM/DOSE POWDER 17 Gram ORAL DAILY as needed for CONSTIPATION Qty = 30 No Refills Comments: Last Taken:11/01/16 Time:1000 Sennosides/Docusate Sodium (Senna Plus Tablet) 8.6 MG-50 MG TABLET 1 Tablet ORAL TWICE DAILY as needed for CONSTIPATION Qty = 30 No Refills The following medications have been changed: Old: Warfarin Sodium (Coumadin) 2 MG TABLET 1 Tablet ORAL SAT, SUN New: Warfarin Sodium (Coumadin) 2 MG TABLET 1 Tablet ORAL DAILY Qty = 30 Comments: Last Taken: 11/01/16 Time: 5PM Copies To: NIMA ROBLERO,Pura GALVAN; GERA ROBLERO,PHYLLIS
== END 2016-11-01 19:10 | disposition home health service (06) | DRG 291 ==
LOC: ERH 10:38 → ERHI 13:41 → 1NO 13:41 → ENRESERV 18:08 → CANRESERV 18:08 → ENRESERV 18:36 → 1NO 19:15
PROVIDERS: Internal Medicine; Physician Assistant; ADMIT Internal Medicine Cardiovascular Disease
DX: I13.0 Hypertensive heart and chronic kidney disease with heart failure and stage 1 through stage 4 chronic kidney disease, or unspecified chronic kidney disease (principal); I50.23 Acute on chronic systolic (congestive) heart failure; N17.9 Acute kidney failure, unspecified; I47.2 Ventricular tachycardia; N18.9 Chronic kidney disease, unspecified; N40.1 Benign prostatic hyperplasia with lower urinary tract symptoms; R33.8 Other retention of urine; I25.10 Atherosclerotic heart disease of native coronary artery without angina pectoris; Z95.810 Presence of automatic (implantable) cardiac defibrillator; Z95.2 Presence of prosthetic heart valve; Z79.01 Long term (current) use of anticoagulants; Z95.5 Presence of coronary angioplasty implant and graft; Z95.1 Presence of aortocoronary bypass graft; N40.0 Benign prostatic hyperplasia without lower urinary tract symptoms; E03.9 Hypothyroidism, unspecified; D64.9 Anemia, unspecified; R21 Rash and other nonspecific skin eruption
CPT/HCPCS: 1NP; 36415; 76775; 82436; 93005; 93010; 96374; 96375; 97110-GO; 97116-GO; 97161-GP; 97530-GO; 99291; J1940; J7060